=== PATIENT | male | born 1965 | race Caucasian/White ===

== ENCOUNTER 2017-01-13 19:15 | Emergency (ER) | payer OTHER ==
[~2017-01-13] VITALS: Ht 162.6 cm; Wt 96.2 kg
[~2017-01-13 19:15] MED LIST: AMOXICILLIN500 M1 PO; AMOXIL 875 MG875 MG PO; AMOXIL500 MG PO; BACTRIM 400 MG-1 TAB PO; BACTRIM DS 8001 TAB PO; BACTRIM DS TAB1 EACH PO; BACTROBAN OINT.1 BOX NAS; FLEXERIL10 MG PO; GABAPENTIN300 MG PO; HUMALOG 100U100 U/ML SC; HYDROCODONE/ACE1 TA1 PO; KEPPRA1000 MG PO; KEPPRA500 MG PO; LAMICTAL 25MG25 MG PO; LAMICTAL150 MG PO; LAMOTRIGINE25 MG PO; LANTUS INS100 UNITS/ SC; LANTUS SOLOS100 U/ML SC; LANTUS100 U/ML SC; LEVEMIR 10100 UNITS/ SC; LISINOPRIL10 MG PO; NORCO 325 MG-51 TAB PO; NOVOLIN N100 U/ML SC; NOVOLOG100 U/ML SC; PERCOCET 325 MG1 TA2 PO; PERCOCET 5-3251 EACH PO; PRAVASTATIN SOD40 MG PO; PRINIVIL 5MG5 MG PO; QUETIAPINE FUM200 MG PO; SEROQUEL300 MG PO; SERTRALINE HYDR50 MG PO; TORADOL10 MG PO; TRICOR48 MG PO; [UNRECOGNIZED DRUG - OTHER] TOP
--- NOTE | 2017-01-13 20:10 | ED GI/GU/ABDOMINAL COMPLAINT ---
History of Present Illness General Chief Complaint: Abdominal Pain/Flank Pain Stated Complaint: ABD PAIN, VOMITING, NO BOWEL MOVEMENT IN 3 DAYS Vital Signs & Intake/Output Vital Signs & Intake/Output Vital Signs Date Time Temp Pulse Resp B/P Pulse O2 O2 Flow FiO2 Ox Delivery Rate 01/14 1940 98.1 84 18 139/87 96 Room Air Allergies Coded Allergies: NO KNOWN ALLERGIES (05/27/15) Reconcile Medications Atorvastatin Calcium (Lipitor) 40 MG TABLET 1 TAB PO DAILY CHOLESTEROL ( Reported) Gabapentin 300 MG CAPSULE 1 CAP PO TID RLS (Reported) Lamotrigine (Lamictal) 25 MG TABLET 175 MG PO BID SEIZURES & MENTAL HEALTH ( Reported) Lisinopril 20 MG TABLET 1 TAB PO DAILY BP (Reported) Metformin HCl (Glucophage) 1,000 MG TABLET 1 TAB PO BID DM (Reported) Sertraline HCl (Zoloft) 50 MG TABLET 1 TAB PO DAILY MENTAL HEALTH (Reported) Sub-Q Insulin Device, 40 Unit (Vgo 40) 1 EACH EACH 14 UNITS SC TIDAC DM- NOVOLOG (Reported) Triage Note: PT TO TRIAGE WITH C/O LOWER ABDOMENAL PAIN 6/10 xWEEK, NAUSEA, CONSTIPATION FOR 3 DAYS, CHILLS, MILD SOB. PT DENIES CHEST PAIN, DENIES URINARY S/S, PT AFEBRILE, VSS. HX OF GI ULCERS. Past History Travel History Traveled to [place] past 21 day No Medical History Any Pertinent Medical History? 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 No Review of Systems Review of Systems Constitutional: Reports: see HPI. All Other Systems: Reviewed and Negative Departure Departure Condition: Stable Referrals: JONELLE PERKINS MD (PCP/Family) Departure Forms: Customer Survey General Discharge Information General Appearance: well developed/nourished, alert, awake Progress Differential Diagnosis: AMI, appendicitis, biliary colic, bowel obstruction, colon cancer, cholecystitis, diverticulitis, esophageal varices, gastritis, hepatitis, hernia, ischemic bowel, inflamm bowel dis, pancreatitis, peptic ulcer , PUD/GERD, perforated viscous, SBO Departure Departure Condition: Stable Referrals: JONELLE PERKINS MD (PCP/Family) Departure Forms: Customer Survey General Discharge Information
[2017-01-13] MEDS ORDERED: GLUCOPHAGE1000 M1 PO (20:18)
[2017-01-13] MEDS ORDERED: LISINOPRIL20 M1 PO (20:18)
[2017-01-13] MEDS ORDERED: GABAPENTIN300 M2 PO (20:19)
[2017-01-13] MEDS ORDERED: LIPITOR40 M1 PO (20:19)
[2017-01-13] MEDS ORDERED: ZOLOFT50 M1 PO (20:19)
[2017-01-13] MEDS ORDERED: LAMICTAL25 M1 PO (20:20)
--- NOTE | 2017-01-13 20:32 | ED GI/GU/ABDOMINAL COMPLAINT ---
History of Present Illness General Chief Complaint: Abdominal Pain/Flank Pain Stated Complaint: ABD PAIN, VOMITING, NO BOWEL MOVEMENT IN 3 DAYS Source: patient Exam Limitations: no limitations Vital Signs & Intake/Output Vital Signs & Intake/Output Vital Signs Date Time Temp Pulse Resp B/P Pulse O2 O2 Flow FiO2 Ox Delivery Rate 01/14 2216 98.1 76 16 140/88 95 Room Air 01/13 1940 98.1 84 18 139/87 96 Room Air Allergies Coded Allergies: NO KNOWN ALLERGIES (05/27/15) Reconcile Medications Atorvastatin Calcium (Lipitor) 40 MG TABLET 1 TAB PO DAILY CHOLESTEROL ( Reported) Gabapentin 300 MG CAPSULE 1 CAP PO TID RLS (Reported) Lamotrigine (Lamictal) 25 MG TABLET 175 MG PO BID SEIZURES & MENTAL HEALTH ( Reported) Lisinopril 20 MG TABLET 1 TAB PO DAILY BP (Reported) Metformin HCl (Glucophage) 1,000 MG TABLET 1 TAB PO BID DM (Reported) Peg 3350/Na Sulf,Bicarb,Cl/KCl (Golytely Solution) 236-22.74G SOLN.RECON 8 OZ PO AD CONSTIPATION Sertraline HCl (Zoloft) 50 MG TABLET 1 TAB PO DAILY MENTAL HEALTH (Reported) Sub-Q Insulin Device, 40 Unit (Vgo 40) 1 EACH EACH 14 UNITS SC TIDAC DM- NOVOLOG (Reported) Triage Note: PT TO TRIAGE WITH C/O LOWER ABDOMENAL PAIN 6/10 xWEEK, NAUSEA, CONSTIPATION FOR 3 DAYS, CHILLS, MILD SOB. PT DENIES CHEST PAIN, DENIES URINARY S/S, PT AFEBRILE, VSS. HX OF GI ULCERS. Triage Nurses Notes Reviewed? yes Onset: Abrupt Duration: day(s): (4), constant Timing: recent history Quality/Severity: mild, moderate Location: left lower quadrant Radiation: no radiation Activities at Onset: none No Modifying Factors: none HPI: 51-year-old male comes into emergency room for further evaluation of left lower abdominal pain has been going on for the past few days. Denies any fever chills vomiting. Denies any blood in stool. Patient reports she's been straining to go to the bathroom and has pain in his rectal region as well as his left lower abdomen. Patient had colonoscopies done recently which showed polyps. Patient reports that he also had a bacterial infection in his stomach when they did an upper endoscopy and he was on medication for that. Denies any other associated symptoms. (ROSEMARY BURCIAGA) Past History Travel History Traveled to [place] past 21 day No Medical History Any Pertinent Medical History? 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 No (ROSEMARY BURCIAGA) Review of Systems Review of Systems Constitutional: Reports: no symptoms. EENTM: Reports: no symptoms. Respiratory: Reports: no symptoms. Cardiovascular: Reports: no symptoms. GI: Reports: see HPI. Genitourinary: Reports: no symptoms. Musculoskeletal: Reports: no symptoms. Skin: Reports: no symptoms. Neurological/Psychological: Reports: no symptoms. Hematologic/Endocrine: Reports: no symptoms. Immunologic/Allergic: Reports: no symptoms. All Other Systems: Reviewed and Negative (ROSEMARY BURCIAGA) Physical Exam Physical Exam General Appearance: well developed/nourished, no apparent distress, alert, awake Head: atraumatic, normal appearance Eyes: Bilateral: normal appearance, EOMI. Ears, Nose, Throat, Mouth: hearing grossly normal, moist mucous membrane Neck: normal inspection, full range of motion Respiratory: normal breath sounds, no respiratory distress Cardiovascular: regular rate/rhythm Gastrointestinal: soft, tenderness (LLQ), NO GUARDING, NO REBOUND TENDERNESS Rectal: heme positive stool, NO GROSS BLOOD Back: normal inspection Extremities: normal range of motion Neurologic/Psych: awake, alert, oriented x 3, normal gait, normal mood/affect Skin: intact, normal color Core Measures ACS in differential dx? No Severe Sepsis Present: No Septic Shock Present: No (ROSEMARY BURCIAGA) Progress Differential Diagnosis: appendicitis, cholecystitis, diverticulitis, hernia, hemorrhoids, ischemic bowel, inflamm bowel dis, perforated viscous, SBO, ureterolithiasis, urinary retention, UTI/pyelo, CONSTIPATION Plan of Care: Orders Procedure Date/time Status URINALYSIS 01/13 2031 Complete LIPASE 01/13 2031 Complete LACTIC ACID 01/13 2031 Complete COMPREHENSIVE METABOLIC PANEL 01/13 2031 Complete CBC WITHOUT DIFFERENTIAL 01/13 2031 Complete AMYLASE 01/13 2031 Complete Laboratory Tests 01/13/172052: Urine Color YEL, Urine Clarity CLEAR, Urine pH 6.0, Ur Specific [place] >= 1.030 , Urine Protein 100 H, Urine Ketones NEG, Urine Nitrite NEG, Urine Bilirubin NEG, Urine Urobilinogen 0.2, Ur Leukocyte Esterase NEG, Ur Microscopic SEDIMENT EXAMINED, Urine RBC 1-3, Ur Epithelial Cells RARE, Urine Mucus MOD H, Urine Hemoglobin TRACE-INTACT H, Urine Glucose >=1000 H 01/13/172044: Anion Gap 8, Estimated GFR > 60, BUN/Creatinine Ratio 22.9, Glucose 165 H, Lactic Acid 1.1, Calcium 9.6, Total Bilirubin 0.6, AST 20, ALT 39, Alkaline Phosphatase 81, Total Protein 6.8, Albumin 3.7, Globulin 3.1, Albumin/Globulin Ratio 1.2, Amylase 50, Lipase 141, CBC w Diff NO MAN DIFF REQ, RBC 5.02, MCV 88.9, MCH 29.8, RDW 13.3, MPV 8.1, Gran % 58.9, Lymphocytes % 31.6, Monocytes % 6.3, Eosinophils % 2.7, Basophils % 0.5, Absolute Granulocytes 3.9, Absolute Lymphocytes 2.1, Absolute Monocytes 0.4, Absolute Eosinophils 0.2, Absolute Basophils 0, PUBS MCHC 33.5 Diagnostic Imaging: Viewed by Me: CT Scan. Discussed w/RAD: CT Scan. Radiology Impression: SERVICE DATE: 01/13/17 EXAM TYPE: CAT - CT ABD & PELVIS W/O IV CONTRAS EXAMINATION: CT ABDOMEN AND PELVIS WITHOUT CONTRAST CLINICAL INFORMATION: Lower abdominal pain on the left side. Decreased bowel movements. COMPARISON: CT abdomen and pelvis 12/02/2015 TECHNIQUE: Multidetector volumetric imaging was performed from the superior aspect of the liver through the pubic symphysis. Sagittal and coronal reformatted images were obtained on the technologist's workstation. DLP: 538.5 mGy-cm FINDINGS: LUNG BASES: The visualized lung bases are unremarkable. LIVER, GALLBLADDER, AND BILIARY TREE: The liver is normal in size, shape, and attenuation. No focal hepatic lesion or biliary ductal dilatation is present. The gallbladder is unremarkable with no evidence of radiopaque gallstones, gallbladder wall thickening, or obvious pericholecystic inflammatory changes. PANCREAS: Unremarkable. SPLEEN: Unremarkable. ADRENAL GLANDS: Unremarkable. KIDNEYS AND URETERS: The kidneys are normal in size, shape, and attenuation. No hydronephrosis, hydroureter, or calculi seen. Minimal but symmetric perinephric stranding. BLADDER: Unremarkable. GASTROINTESTINAL TRACT: A normal appendix is visualized within the right lower quadrant. There are no dilated loops of small or large bowel. Dense stool is noted throughout the colon. ABDOMINAL WALL: There are bilateral fat- containing inguinal hernias, left greater than right. LYMPH NODES: Normal. VASCULAR: Unremarkable on this limited noncontrast exam. PELVIC VISCERA: Prostate and seminal vesicles appear unremarkable. OSSEOUS STRUCTURES: Unremarkable. IMPRESSION: 1. No acute intra-abdominal or pelvic findings. 2. Moderate stool volume. DICTATED BY: DOMITILA BROWN MD DATE/TIME DICTATED:01/13/172211 AUTOMATIC TIRE TESTER:RODOLFO DATE/TIME TRANSCRIBED:01/13/172211 Initial ED EKG: none Comments: 01/13/2017 11:11:28 PM Patient is nontoxic appearing. Patient is in no apparent distress. Patient resting comfortably in room. Patient has symptoms consistent with constipation. No acute findings on CAT scan or blood work. Follow-up with gastric drowsiness. Return if any concerns worsening symptoms. Patient understands and agrees with plan of care. (CHARU CANO,ROSEMARY) Departure Departure Disposition: HOME OR SELF CARE Condition: Stable Clinical Impression Primary Impression: Constipation Secondary Impressions: Abdominal pain Referrals: JONELLE PERKINS MD (PCP/Family) Additional Instructions: Take GoLYTELY as prescribed. Follow-up with your GI doctor. Return to emergency room if any concerns worsening symptoms. Follow-up with your primary care physician this week. Return to the emergency room at any time sooner if you have worsening of your symptoms or any other concerns. Please note that there might be incidental findings in your evaluation that are unrelated to the current emergency department visit. Please notify your primary care doctor about this emergency department visit in order to obtain and review all of the testing performed so that these incidental findings can be monitored as needed. If you were prescribed a narcotic use caution as this medication is highly addictive and will make you drowsy use for breakthrough pain only. No driving, drinking alcohol or operating machinary when taking. If you had an x-ray performed, please understand that some fractures may not be seen on the initial set of x-rays. If your symptoms persist you might need a repeat set of x-rays to check for such a fracture. If you had a laceration evaluated, please understand that foreign bodies such as glass or wood may not be visible to the naked eye or on plain x-rays. If the wound becomes red, swollen, increasingly more painful or if there is any drainage from the wound, please have it reevaluated by a physician for the possibility of a retained foreign body. Departure Forms: Customer Survey General Discharge Information Prescriptions: Current Visit Scripts Peg 3350/Na Sulf,Bicarb,Cl/KCl (Golytely Solution) 8 OZ PO AD #1 BOT (ROSEMARY BURCIAGA) PA/TUBE AND MANIFOLD BUILDER Co-Sign Statement Statement: ED Attending supervision documentation- [] I saw and evaluated the patient. I have also reviewed all the pertinent lab results and diagnostic results. I agree with the findings and the plan of care as documented in the PA's/TUBE AND MANIFOLD BUILDER's documentation. [X] I have reviewed the ED Record and agree with the PA's/TUBE AND MANIFOLD BUILDER's documentation. [] Additions or exceptions (if any) to the PAs/TUBE AND MANIFOLD BUILDER's note and plan are summarized below: [] (AMIRAH MCCARTHY DO
[2017-01-13 20:50] LABS: ABSOLUTE BASOPHIL COUNT 0 /CUMM (0.0-0.2); ABSOLUTE EOSINOPHIL COUNT 0.2 /CUMM (0.0-0.7); ABSOLUTE GRANULOCYTE CT 3.9 /CUMM (1.4-6.5); ABSOLUTE LYMPH COUNT 2.1 /CUMM (1.2-3.4); ABSOLUTE MONOCYTE COUNT 0.4 /CUMM (0.10-0.60); BASOPHIL % 0.5 % (0.0-2.0); EOSINOPHIL % 2.7 % (0-5); GRANULOCYTE % 58.9 % (42.2-75.2); HEMATOCRIT 44.7 % (42-52); MEAN CORPUSCULAR HGB 29.8 PG (27.0-31.0); MEAN CORPUSCULAR HGB CONC 33.5 G/DL (33.0-37.0); MEAN CORPUSCULAR VOLUME 88.9 FL (80.0-94.0); MEAN PLATELET VOLUME 8.1 FL (7.4-10.4); PLATELET COUNT 198 /CUMM (130-400); RBC DISTRIBUTION WIDTH 13.3 % (11.5-14.5); RED BLOOD CELL CT 5.02 /CUMM (4.70-6.10); WHITE BLOOD CELL COUNT 6.6 /CUMM (4.8-10.8)
[2017-01-13 22:16] VITALS: BP 140/88
--- NOTE | 2017-01-13 22:19 | CT SCAN REPORT ---
EXAMINATION: CT ABDOMEN AND PELVIS WITHOUT CONTRAST CLINICAL INFORMATION: Lower abdominal pain on the left side. Decreased bowel movements. COMPARISON: CT abdomen and pelvis 12/02/2015 TECHNIQUE: Multidetector volumetric imaging was performed from the superior aspect of the liver through the pubic symphysis. Sagittal and coronal reformatted images were obtained on the technologist's workstation. DLP: 538.5 mGy-cm FINDINGS: LUNG BASES: The visualized lung bases are unremarkable. LIVER, GALLBLADDER, AND BILIARY TREE: The liver is normal in size, shape, and attenuation. No focal hepatic lesion or biliary ductal dilatation is present. The gallbladder is unremarkable with no evidence of radiopaque gallstones, gallbladder wall thickening, or obvious pericholecystic inflammatory changes. PANCREAS: Unremarkable. SPLEEN: Unremarkable. ADRENAL GLANDS: Unremarkable. KIDNEYS AND URETERS: The kidneys are normal in size, shape, and attenuation. No hydronephrosis, hydroureter, or calculi seen. Minimal but symmetric perinephric stranding. BLADDER: Unremarkable. GASTROINTESTINAL TRACT: A normal appendix is visualized within the right lower quadrant. There are no dilated loops of small or large bowel. Dense stool is noted throughout the colon. ABDOMINAL WALL: There are bilateral fat-containing inguinal hernias, left greater than right. LYMPH NODES: Normal. VASCULAR: Unremarkable on this limited noncontrast exam. PELVIC VISCERA: Prostate and seminal vesicles appear unremarkable. OSSEOUS STRUCTURES: Unremarkable. IMPRESSION: 1. No acute intra-abdominal or pelvic findings. 2. Moderate stool volume.
[2017-01-13] MEDS ORDERED: GOLYTELY SOLU4000 ML PO (22:42)
== END 2017-01-13 22:51 ==
LOC: ERH 19:15
PROVIDERS: Physician Assistant Medical
DX: K59.00 Constipation, unspecified (principal)
CPT/HCPCS: 74176; 81001

== ENCOUNTER 2017-01-19 13:52 | Emergency (ER) | payer OTHER ==
[~2017-01-19] VITALS: Ht 162.6 cm; Wt 96.2 kg
[~2017-01-19 13:52] MED LIST changes: +GABAPENTIN300 M2 PO; +GLUCOPHAGE1000 M1 PO; +GOLYTELY SOLU4000 ML PO; +LAMICTAL25 M1 PO; +LIPITOR40 M1 PO; +LISINOPRIL20 M1 PO; +ZOLOFT50 M1 PO
[2017-01-19] MEDS ORDERED: KETOROLAC TROME10 M1 PO (14:15)
[2017-01-19] MEDS ORDERED: IBUPROFEN800 M1 PO (14:15)
--- NOTE | 2017-01-19 14:38 | ED GI/GU/ABDOMINAL COMPLAINT ---
History of Present Illness General Chief Complaint: General Adult Stated Complaint: RECTAL PAIN Source: patient, old records Exam Limitations: no limitations Vital Signs & Intake/Output Vital Signs & Intake/Output Vital Signs Date Time Temp Pulse Resp B/P Pulse O2 O2 Flow FiO2 Ox Delivery Rate 01/19 1653 97.9 79 18 144/88 97 Room Air 01/19 1406 97.8 81 20 163/95 97 Room Air Allergies Coded Allergies: NO KNOWN ALLERGIES (05/27/15) Reconcile Medications Anusol Hc (Anusol-Hc) 25 MG SUPP.RECT 1 SUP RC BID hemorrhoid Atorvastatin Calcium (Lipitor) 40 MG TABLET 1 TAB PO DAILY CHOLESTEROL ( Reported) Gabapentin 300 MG CAPSULE 1 CAP PO TID RLS (Reported) Ibuprofen 800 MG TABLET 1 TAB PO TID PRN PAIN (Reported) Ketorolac Tromethamine 10 MG TABLET 1 TAB PO Q4-6 PRN PRN PAIN (Reported) Lamotrigine (Lamictal) 25 MG TABLET 175 MG PO BID SEIZURES & MENTAL HEALTH ( Reported) Lidocaine HCl 2 % JEL..ML. 5 ML TOP TID PRN PAIN Lisinopril 20 MG TABLET 1 TAB PO DAILY BP (Reported) Metformin HCl (Glucophage) 1,000 MG TABLET 1 TAB PO BID DM (Reported) Sertraline HCl (Zoloft) 50 MG TABLET 1 TAB PO DAILY MENTAL HEALTH (Reported) Sub-Q Insulin Device, 40 Unit (Vgo 40) 1 EACH EACH 14 UNITS SC TIDAC DM- NOVOLOG (Reported) Triage Note: PT C/O CONSTIPATION X 5 DAYS AND RECTAL PAIN Triage Nurses Notes Reviewed? yes Onset: Abrupt Duration: week(s): (2), constant Timing: recent history Quality/Severity: aching, bloating pressure Location: rectal Radiation: no radiation Activities at Onset: none Prior Abdominal Problems: none No Modifying Factors: none Associated Symptoms: denies HPI: 51-year-old male presents emergency room for evaluation complaining of persistent to make history of constipation and severe rectal pain. He denies history of similar episodes in the past. He was seen here 6 days ago for similar symptoms. He states that he cannot get the GoLYTELY medication that was prescribed him because was sent to the wrong pharmacy. He states that he is only been having small bowel movements the last one being a few days ago. He describes abdominal bloating that is constant and nonradiating. The patient states that he felt a lump on his rectum which she has never had before. Patient had a colonoscopy and endoscopy performed earlier this year that just showed polyps. No fever no chills no nausea no vomiting or denies any black or bloody stools. Has not taken anything for his symptoms other than ibuprofen 800 mg without improvement (STEPHANIE WESLEY) Past History Travel History Traveled to [place] past 21 day No Medical History Any Pertinent Medical History? see below for history Neurological: seizure, RESTLESS LEG SYNDROME EENT: cataracts Cardiovascular: hyperlipidemia Respiratory: SLEEP APNEA CPAP Gastrointestinal: peptic ulcer disease Hepatic: NONE Renal: NONE Musculoskeletal: ARTHRITIS OF LEFT SHOULDER MULTIPLE ABSCESSES Psychiatric: anxiety, bipolar disease, "SUICIDAL TENDENCIES" Endocrine: DM Blood Disorders: NONE Cancer(s): NONE COSMETIC DENTIST/Reproductive: NONE History of MRSA: Yes History of VRE: No History of CDIFF: No Tetanus Vaccine: 11/27/14 Surgical History Surgical History: N Psychosocial History Who do you live with Sister Services at Home None What is your primary language Lao Tobacco Use: Never used ETOH Use: denies use Illicit Drug Use: denies illicit drug use Family History Family History, If Any: FATHER FH: diabetes mellitus FH: lymphoma FH: seizures MOTHER FH: CAD (coronary artery disease) FH: diabetes mellitus FH: hyperlipidemia Hypertension Hx Contributory? No (STEPHANIE WESLEY) Review of Systems Review of Systems Constitutional: Reports: see HPI. All Other Systems: Reviewed and Negative Comments Review of systems: See HPI, All other systems negative. Constitutional, no chills no fever, no malaise HEENT: no sore throat no congestion, Cardiovascular: No chest pain , no palpitation Skin, no rashes, no change in skin Respiratory: No dyspnea no cough no sputum GI: No nausea no vomiting, no diarrhea,constipation : No dysuria Muscle skeletal: No joint pain, , no back pain, no neck pain, Neurologic: No numbness no headache Psych: No stress Heme/endocrine: No bruising no bleeding Immunology: No lymphadenopathy (STEPHANIE WESLEY) Physical Exam Physical Exam General Appearance: well developed/nourished, no apparent distress, alert Gastrointestinal: normal bowel sounds, soft, non-tender Comments: Well-developed well-nourished person in no acute distress HEENT: Normal EENT exam; PERRL, EOMI, HEAD is atraumatic. moist mucous membranes. Neck: Supple, normal range of motion Back: Nontender, no CVA tenderness. Full range of motion Cardiovascular: Regular rate and rhythms no murmurs rubs Respiratory:No respiratory distress. Patient speaking in full complete sentences. Breath sounds clear to auscultation bilaterally: NO W/R/R Abdomen: Soft, nontender nondistended, no appreciable organomegaly. Normal bowel sounds. No rebound/guarding, No appreciable enlargement of the abdominal aorta, No ascites. Rectal: Nontender. Heme negative stool. (+) external hemorrhoid, no fissure, no abscess, no fistula Extremity: No edema, full range of motion of extremities Neuro: Alert oriented x3, motor sensory normal, There were no obvious focal neurologic abnormalities. Skin: No appreciable rash on exposed skin, skin is warm and dry. Psych: Mood and affect is normal, memory and judgment is normal. Core Measures ACS in differential dx? No Severe Sepsis Present: No Septic Shock Present: No (STEPHANIE WESLEY) Progress Differential Diagnosis: hemorrhoids, prostatitis, perforated viscous, anal fissure, fistual, obstrucion, malignancy, impaction Plan of Care: Orders Procedure Date/time Status CBC WITHOUT DIFFERENTIAL 01/19 1449 Complete BASIC METABOLIC PANEL 01/19 1449 Complete Laboratory Tests 01/19/17 1518: Anion Gap 6, Estimated GFR > 60, BUN/Creatinine Ratio 24.3, Glucose 314 H, Calcium 9.7, CBC w Diff NO MAN DIFF REQ, RBC 4.81, MCV 88.8, MCH 30.3, RDW 12.6, MPV 8.2, Gran % 67.0, Lymphocytes % 22.1, Monocytes % 7.3, Eosinophils % 3.3, Basophils % 0.3, Absolute Granulocytes 4.1, Absolute Lymphocytes 1.4, Absolute Monocytes 0.4, Absolute Eosinophils 0.2, Absolute Basophils 0, PUBS MCHC 34.1 Old records reviewed including the patient's previous CAT scan from January 13, labs ordered x-ray ordered. I discussed the patient clinical exam, and his large hemorrhoid that he has externally which could be causing his severe rectal pain 01/19/2017 4:55:31 PM I discussed with the patient at length all of their results. I had an extensive conversation regarding need for close follow up with their primary care physician this week as well as return precautions. Patient is scheduled to see his GI Dr. Blanco on the information was provided for Dr. ortiz as well. pt has golytltely at home. I answered all of their questions, they feel comfortable with the plan and follow-up care. I discussed the medications that they will receive with the patient. I gave them signs and symptoms that could indicate an adverse reaction. I have advised them to limit their activities until they can see how they respond to the medication. (STEPHANIE WESLEY) Diagnostic Imaging: Viewed by Me: Radiology Read. Discussed w/RAD: Radiology Read. Radiology Impression: PATIENT: ELINA BARKER PRESENT AGE: 51 PATIENT ACCOUNT NO: [id number] : 64 LOCATION: [facility] ORDERING PHYSICIAN: STEPHANIE CANO SERVICE DATE: 01/19/17 EXAM TYPE: RAD - [id number] VIEWS EXAMINATION: XR ABDOMEN CLINICAL INDICATION: Obstruction. Constipation. COMPARISON: CT scan of the abdomen and pelvis December 2016. TECHNIQUE: Single view of the abdomen supine. FINDINGS: There is a nonobstructive gas pattern. Moderate amount of fecal material noted within the colon. Spondylosis of the lumbosacral spine unchanged. The surrounding bone and soft tissues are unremarkable. IMPRESSION: No evidence of bowel obstruction. Moderate amount of fecal material noted throughout the colon. DICTATED BY: CORBY WEISS MD DATE/TIME DICTATED:01/19/171522 SURVEY RESEARCH ASSOCIATE: RODOLFO DATE/TIME TRANSCRIBED:01/19/171522 CONFIDENTIAL, DO NOT COPY WITHOUT APPROPRIATE AUTHORIZATION. <Electronically signed in Other Vendor System> SIGNED BY: CORBY WEISS MD 01/19/17 1541 Initial ED EKG: none (STEPHANIE WESLEY) Departure Departure Time of Disposition: 1634 Disposition: HOME OR SELF CARE Condition: Stable Clinical Impression Primary Impression: Hemorrhoid Secondary Impressions: Constipation Referrals: STONE DE LOS SANTOS DO,ISAIAH PERKINS MD,JONELLE (PCP/Family) SOL BLANCO MD Additional Instructions: Follow-up with your leather tooler Dr. Blanco as scheduled next week. Follow-up with colorectal surgeon Dr. ortiz on sunday. Use your golytely that you have at home. anusol suppository and lidocaine jelly as discussed. These prescriptions were sent to your pharmacy. Return anytime sooner with any concerns sitz baths with epson salt. Departure Forms: Customer Survey General Discharge Information Prescriptions: Current Visit Scripts Anusol Hc (Anusol-Hc) 1 SUP RC BID #28 SUP Lidocaine HCl 5 ML TOP TID PRN PAIN #50 ML (STEPHANIE WESLEY) PA/SKATE SHOP ATTENDANT Co-Sign Statement Statement: ED Attending supervision documentation- [x] I saw and evaluated the patient. I have also reviewed all the pertinent lab results and diagnostic results. I agree with the findings and the plan of care as documented in the PA's/SKATE SHOP ATTENDANT's documentation. [] I have reviewed the ED Record and agree with the PA's/SKATE SHOP ATTENDANT's documentation. [] Additions or exceptions (if any) to the PAs/SKATE [employer] ATTENDANT's note and plan are summarized below: [] (AMIRAH MCCARTHY DO
[2017-01-19 15:28] LABS: ABSOLUTE BASOPHIL COUNT 0 /CUMM (0.0-0.2); ABSOLUTE EOSINOPHIL COUNT 0.2 /CUMM (0.0-0.7); ABSOLUTE GRANULOCYTE CT 4.1 /CUMM (1.4-6.5); ABSOLUTE LYMPH COUNT 1.4 /CUMM (1.2-3.4); ABSOLUTE MONOCYTE COUNT 0.4 /CUMM (0.10-0.60); BASOPHIL % 0.3 % (0.0-2.0); EOSINOPHIL % 3.3 % (0-5); HEMATOCRIT 42.7 % (42-52); MEAN CORPUSCULAR HGB 30.3 PG (27.0-31.0); MEAN CORPUSCULAR HGB CONC 34.1 G/DL (33.0-37.0); MEAN CORPUSCULAR VOLUME 88.8 FL (80.0-94.0); MEAN PLATELET VOLUME 8.2 FL (7.4-10.4); PLATELET COUNT 226 /CUMM (130-400); RBC DISTRIBUTION WIDTH 12.6 % (11.5-14.5); RED BLOOD CELL CT 4.81 /CUMM (4.70-6.10); WHITE BLOOD CELL COUNT 6.2 /CUMM (4.8-10.8)
--- NOTE | 2017-01-19 15:41 | RADIOLOGY REPORT ---
EXAMINATION: XR ABDOMEN CLINICAL INDICATION: Obstruction. Constipation. COMPARISON: CT scan of the abdomen and pelvis December 2016. TECHNIQUE: Single view of the abdomen supine. FINDINGS: There is a nonobstructive gas pattern. Moderate amount of fecal material noted within the colon. Spondylosis of the lumbosacral spine unchanged. The surrounding bone and soft tissues are unremarkable. IMPRESSION: No evidence of bowel obstruction. Moderate amount of fecal material noted throughout the colon.
[2017-01-19] MEDS ORDERED: LIDOCAINE HCL5 ML TOP (16:45)
[2017-01-19] MEDS ORDERED: ANUSOL-HC25 M1 RC (16:45)
[2017-01-19 16:53] VITALS: BP 144/88
== END 2017-01-19 16:53 ==
LOC: ERH 13:52
PROVIDERS: Physician Assistant Medical
DX: K64.9 Unspecified hemorrhoids (principal); K59.00 Constipation, unspecified
CPT/HCPCS: 74020

== ENCOUNTER 2017-02-05 16:02 | Inpatient (IN) | payer OTHER ==
[~2017-02-05] VITALS: Ht 162.6 cm; Wt 109.9 kg
[~2017-02-05 16:02] MED LIST changes: +ANUSOL-HC25 M1 RC; +IBUPROFEN800 M1 PO; +KETOROLAC TROME10 M1 PO; +LIDOCAINE HCL5 ML TOP
[2017-02-05] MEDS ORDERED: METOPROLOL TART25 M1 PO (16:09)
[2017-02-05] MEDS ORDERED: NOVOLOG100 UNIT/2 SC (16:10)
[2017-02-05] MEDS ORDERED: SEROQUEL300 M1 PO (16:10)
[2017-02-05] MEDS ORDERED: RISPERDAL0.25 M1 PO (16:10)
--- NOTE | 2017-02-05 16:17 | ED AMS/SEIZURE/WEAK/DIZZY ---
History of Present Illness General Chief Complaint: General Adult Stated Complaint: BIBA HYPOTENSION Source: patient, old records, EMS Exam Limitations: no limitations Allergies Coded Allergies: aspirin (PER MED LIST 02/05/17) diphtheria,pertussis (acellular),te (From ADACEL(TDAP ADOLESN/ADULT)(PF)) (PER MED LIST 02/05/17) Reconcile Medications Anusol Hc (Anusol-Hc) 25 MG SUPP.RECT 1 SUP RC BID hemorrhoid Atorvastatin Calcium (Lipitor) 40 MG TABLET 1 TAB PO DAILY CHOLESTEROL ( Reported) Gabapentin 300 MG CAPSULE 1 CAP PO TID RLS (Reported) Ibuprofen 800 MG TABLET 1 TAB PO TID PRN PAIN (Reported) Insulin Aspart (Novolog) 100 UNIT/ML VIAL 76 UNITS SC AD VGO INSULIN PUMP - DM (Reported) Ketorolac Tromethamine 10 MG TABLET 1 TAB PO Q4-6 PRN PRN PAIN (Reported) Lamotrigine (Lamictal) 25 MG TABLET 175 MG PO BID SEIZURES & MENTAL HEALTH ( Reported) Lidocaine HCl 2 % JEL..ML. 5 ML TOP TID PRN PAIN Lisinopril 20 MG TABLET 1 TAB PO DAILY BP (Reported) Metformin HCl (Glucophage) 1,000 MG TABLET 1 TAB PO BID DM (Reported) Metoprolol Tartrate 25 MG TABLET 1 TAB PO BID HEART/BP (Reported) Quetiapine Fumarate (Seroquel) 300 MG TABLET 1 TAB PO DAILY UNKNOWN (Reported ) Risperidone (Risperdal) 0.25 MG TABLET 1 TAB PO AD UNKNOWN (Reported) Sertraline HCl (Zoloft) (Unknown Strength) TABLET (Unknown Dose) PO DAILY MENTAL HEALTH (Reported) Sub-Q Insulin Device, 40 Unit (Vgo 40) (Unknown Strength) EACH (Unknown Dose) SC TIDAC DM- NOVOLOG (Reported) Triage Nurses Notes Reviewed? 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 Patient states that he woke this morning and normal health. He denies history of vertigo in the past no recent fall or head trauma no headache. He denies any chest pain palpitation shortness of breath abdominal pain nausea or vomiting. On arrival patient is known to be hypotensive he was given IV fluids in route. There is been no recent changes in his medication. He is on lisinopril for his blood pressure which she took this morning Blood sugar was 112 and route or the patient reports his dizziness is worse with opening his eyes (STEPHANIE WESLEY) Vital Signs & Intake/Output Vital Signs & Intake/Output Vital Signs Date Time Temp Pulse Resp B/P Pulse O2 O2 Flow FiO2 Ox Delivery Rate 02/05 2054 97.3 63 16 99/55 96 Room Air 02/05 205 63 16 99/58 96 Room Air 02/05 1943 62 16 105/63 97 Room Air 02/05 1856 63 89/54 02/05 1841 62 103/56 02/05 1834 60 98/58 97 Room Air 02/05 1805 70 84/55 02/05 1744 60 16 84/58 97 Room Air 02/05 1708 60 16 101/58 96 Room Air 02/05 1658 60 95/58 /10 1641 62 16 90/52 95 Room Air 02/05 1628 Room Air 02/05 1610 97.2 65 18 84/58 97 Room Air 02/05 1605 97.2 66 18 84/50 95 Room Air Past History Medical History Any Pertinent Medical History? see below for history Neurological: seizure, RESTLESS LEG SYNDROME EENT: cataracts Cardiovascular: hyperlipidemia Respiratory: SLEEP APNEA CPAP Gastrointestinal: peptic ulcer disease Hepatic: NONE Renal: NONE Musculoskeletal: ARTHRITIS OF LEFT SHOULDER MULTIPLE ABSCESSES Psychiatric: anxiety, bipolar disease, "SUICIDAL TENDENCIES" Endocrine: DM Blood Disorders: NONE Cancer(s): NONE ENERGY ENGINEER/Reproductive: NONE History of MRSA: Yes History of VRE: No History of CDIFF: No Tetanus Vaccine: 11/27/14 Surgical History Surgical History: N Psychosocial History Who do you live with Sister Services at Home None What is your primary language Uzbek Family History Family History, If Any: FATHER FH: diabetes mellitus FH: lymphoma FH: seizures MOTHER FH: CAD (coronary artery disease) FH: diabetes mellitus FH: hyperlipidemia Hypertension Hx Contributory? No (STEPHANIE WESLEY) Review of Systems Review of Systems Constitutional: Reports: see HPI. All Other Systems: Reviewed and Negative Comments Review of systems: See HPI, All other systems negative. Constitutional, no chills no fever, no malaise HEENT: no sore throat no congestion, no ear pain Cardiovascular: No chest pain , no palpitation , no orthopnea no ankle swelling Skin, no jaundice no rashes, no change in skin Respiratory: No dyspnea no cough no sputum GI: No nausea no vomiting, no diarrhea, : No dysuria No hematuria, no frequency, no discharge Muscle skeletal: No joint pain, no joint swelling, no back pain, no neck pain, Neurologic: No numbness no confusion, no headache Psych: No stress Heme/endocrine: No bruising no bleeding Immunology: No lymphadenopathy, (STEPHANIE WESLEY) Physical Exam Physical Exam General Appearance: well developed/nourished, alert, awake Comments: Well-developed well-nourished person in no acute distress HEENT: Normal EENT exam; PERRL, EOMI, no nystagmus. HEAD is atraumatic. moist mucous membranes. Neck: Supple, no lymphadenopathy, normal range of motion Back: Nontender, no CVA tenderness. Full range of motion Cardiovascular: Regular rate and rhythms no murmurs rubs or gallops Respiratory: Chest nontender.There were no bony deformities, no asymmetry. No respiratory distress. Patient speaking in full complete sentences. Breath sounds clear to auscultation bilaterally: NO W/R/R Abdomen: Soft, nontender nondistended, no appreciable organomegaly. Normal bowel sounds. No rebound/guarding, Extremity: No edema, full range of motion of extremities Neuro: Alert oriented x3, motor sensory normal There were no obvious focal neurologic abnormalities. Skin: No appreciable rash on exposed skin, skin is warm and dry. Psych: Mood and affect is normal, memory and judgment is normal. Core Measures ACS in differential dx? Yes CVA/TIA Diagnosis: No Severe Sepsis Present: No Septic Shock Present: No (STEPHANIE WESLEY) Progress Differential Diagnosis: arrythmia, anemia, benign positional vertigo, CVA/stroke , dehydration, drug intoxication, electrolyte imbalance, intracranial Hem., intracranial mass/tumor, labrynthitis, meningitis, migraine RAYMOND, presyncope, sepsis, seizure disorder, subarachnoid Hem., UTI/pyelo, vertebrobasilar insuff Diagnostic Imaging: Viewed by Me: Radiology Read, CT Scan. Discussed w/RAD: Radiology Read, CT Scan. Radiology Impression: PATIENT: ELINA BARKER PRESENT AGE: 51 PATIENT ACCOUNT NO: [id number] : 64 LOCATION: [facility] ORDERING PHYSICIAN: QUANG ALVARENGA MD SERVICE DATE: 02/05/17 EXAM TYPE: RAD - XRY-PORTABLE CHEST XRAY EXAMINATION: XR PORTABLE CHEST CLINICAL INFORMATION: Right IJ placement. COMPARISON: Chest portable 02/05/2017. TECHNIQUE: Portable AP view of the chest was obtained. FINDINGS: There is cardiomegaly probably from semiupright position. There is mild prominence of pulmonary vascularity but no evon congestion seen. There is a new right jugular central line with its tip in SVC. No pneumothorax noted. The lungs are hypoexpanded but clear. There is no pleural effusion. No gross bony abnormality. IMPRESSION: New right jugular central line tip is in SVC. Mild cardiomegaly without congestion. No change from 02/05/2017. DICTATED BY: KELVIN STILL MD DATE /TIME DICTATED:02/05/172034 COMMISSARY STEWARD:RODOLFO DATE/TIME TRANSCRIBED: 02/05/172034 CONFIDENTIAL, DO NOT COPY WITHOUT APPROPRIATE AUTHORIZATION. < Electronically signed in Other Vendor System> SIGNED BY: KELVIN STILL MD 2040, PATIENT: ELINA BARKER PRESENT AGE : 51 PATIENT ACCOUNT NO: [id number] : 64 LOCATION: [facility] ORDERING PHYSICIAN: STEPHANIE CANO SERVICE DATE: 02/05/17 EXAM TYPE: CAT - CT HEAD WO IV CONTRAST EXAMINATION: CT HEAD WITHOUT CONTRAST CLINICAL INFORMATION: Dizziness and hypotension. COMPARISON: None TECHNIQUE: Contiguous axial imaging was performed from the skull base to vertex without intravenous administration of contrast. DLP: 600.71 mGy-cm FINDINGS: There is no evidence of acute intracranial hemorrhage or territorial infarction. No abnormal mass effect or midline shift is seen. [place] to white matter differentiation is well preserved. No extra-axial fluid collections are identified. The ventricles are normal in size. There is no abnormal attenuation within the brain parenchyma. The osseous structures and soft tissues are normal. The mastoid air cells are well aerated. There is mild mucosal thickening in the ethmoid sinus air cells. IMPRESSION: No acute intracranial pathology. DICTATED BY: ARSEN FRIEDMAN MD DATE/TIME DICTATED:02/05/171806 COMMISSARY STEWARD:RODOLFO DATE/TIME TRANSCRIBED:1806 CONFIDENTIAL, DO NOT COPY WITHOUT APPROPRIATE AUTHORIZATION. < Electronically signed in Other Vendor System> SIGNED BY: ARSEN FRIEDMAN MD 02/05/171811, PATIENT: ELINA BARKER PRESENT AGE: 51 PATIENT ACCOUNT NO: [id number] : 64 LOCATION: [facility] ORDERING PHYSICIAN: STEPHANIE CANO SERVICE DATE: 02/05/17 EXAM TYPE: RAD - XRY-PORTABLE CHEST XRAY EXAMINATION: XR PORTABLE CHEST CLINICAL INFORMATION: Hypotension and dizziness. COMPARISON: X-ray from 12/29/2014. TECHNIQUE: Portable AP view of the chest was obtained. FINDINGS: No airspace opacities or pleural effusions are seen. The cardiomediastinal silhouette is normal. No acute osseous abnormality seen. IMPRESSION: Clear lungs. No acute process. DICTATED BY: ARSEN FRIEDMAN MD DATE/TIME DICTATED:02/05/171738 COMMISSARY STEWARD:RODOLFO DATE/TIME TRANSCRIBED:02/05/171738 CONFIDENTIAL, DO NOT COPY WITHOUT APPROPRIATE AUTHORIZATION. <Electronically signed in Other Vendor System> SIGNED BY: ARSEN FRIEDMAN MD 02/05/17 174 Initial ED EKG: NORMAL SINUS AT 60, NONSPECIFIC st SEGMENT CHANGES MINIMAL st SEGMENT ELEVATION NOTED TO Avl Prior EKG: changed (10/2015) Rhythm Strip: normal sinus rhythm (ANGELITA CANO,STEPHANIE) Plan of Care: Orders Procedure Date/time Status Brody, Insertion/Removal/Asses 02/05 2019 Active Admit to inpatient 02/05 195 Active Patient Data 02/05 1920 Active LACTIC ACID 02/05 1916 Active Add-on Test (ER Only) 02/05 1846 Active URINALYSIS 02/05 184 Complete BLOOD CULTURE 02/05 184 Active Add-on Test (ER Only) 02/05 1736 Active URINE DRUG SCREEN FOR ER ONLY 02/05 1710 Complete Intake & Output 02/05 1628 Active ETHANOL 02/05 1625 Complete CORTISOL PM 02/05 1625 Complete TROPONIN LEVEL 02/05 1616 Complete PROTHROMBIN TIME 02/05 1616 Complete LACTIC ACID 02/06 1616 Complete COMPREHENSIVE METABOLIC PANEL 02/06 1616 Complete CBC WITHOUT DIFFERENTIAL 02/06 1616 Complete EKG 02/06 1616 Active Laboratory Tests 02/05/17 1931: Urine Opiates Screen < 100.00, Methadone Screen < 40, Barbiturate Screen < 60, Ur Phencyclidine Scrn < 6.00, Amphetamines Screen 121, U Benzodiazepines Scrn < 85, Urine Cocaine Screen < 50, Urine Cannabis Screen < 5.00, Urinalysis HEAVY H , Urine Color YEL, Urine Clarity CLEAR, Urine pH 6.0, Ur Specific [place] 1.020, Urine Protein 100 H, Urine Ketones NEG, Urine Nitrite NEG, Urine Bilirubin NEG, Urine Urobilinogen 0.2, Ur Leukocyte Esterase NEG, Ur Microscopic SEDIMENT EXAMINED, Urine RBC RARE, Urine Bacteria RARE H, Hyaline Casts 15-25 H, Urine Hemoglobin NEG, Urine Glucose >=1000 H 02/05/17 162: Anion Gap 8, Estimated GFR > 60, BUN/Creatinine Ratio 12.7, Glucose 97, Lactic Acid 1.9, Calcium 7.8 L, Total Bilirubin 0.5, AST 17, ALT 38, Alkaline Phosphatase 54, Troponin I < 0.01, Total Protein 5.6 L, Albumin 2.9 L, Globulin 2.7, Albumin/Globulin Ratio 1.1, Cortisol PM Sample 15.5 H, PT 10.4, INR 0.99, CBC w Diff NO MAN DIFF REQ, RBC 3.99 L, MCV 90.2, MCH 29.7, RDW 13.5, MPV 7.8, Gran % 62.8, Lymphocytes % 25.8, Monocytes % 8.6, Eosinophils % 2.4, Basophils % 0.4, Absolute Granulocytes 2.8, Absolute Lymphocytes 1.1 L, Absolute Monocytes 0.4, Absolute Eosinophils 0.1, Absolute Basophils 0, PUBS MCHC 32.9 L, Serum Alcohol < 10.0 Microbiology 02/05 1900 BLOOD: Blood Culture - RECD 02/05 1857 BLOOD: Blood Culture - RECD Labs ordered IV fluids ordered patient medicated meclizine 25 by mouth Case discussed with Dr. Manriquez agrees with plan corrected calcium is 8.7 Patient mentating well awake and arousable denies any complaints at this time patient has received 6 L of fluid however remained hypotensive. Discussed with him need for admission I discussed at length his x-ray CAT scan and lab results. rij central line placed by me after pt consented using ultrasound guidance and sterile technique. case d/w dr mcallister will admit Physician a central line was confirmed with x-ray. (STEPHANIE WESLEY) I was at bedside during the central line placement. Chest x-ray status post right IJ placement shows no pneumothorax, good placement of triple lumen. (QUANG ALVRAENGA MD) Departure Departure Disposition: STILL A PATIENT Condition: Stable Clinical Impression Primary Impression: Hypotension Secondary Impressions: Acute electrocardiogram changes, Vertigo Referrals: JONELLE PERKINS MD (PCP/Family) Departure Forms: Customer Survey General Discharge Information Admission Note Spoke With: TABITHA MCALLISTER MD Documentation of Exam: Documentation of any treatments & extenuating circumstances including Concerns Regarding Discharge (functional status, medication knowledge or non-compliance, living conditions, etc.) that warrant an admission rather than observation: trend labs, iv fluids, premature discharge would bem edically harmful (STEPHANIE WESLEY) PA/STRATEGY SPECIALIST Co-Sign Statement Statement: ED Attending supervision documentation- [X] I saw and evaluated the patient. I have also reviewed all the pertinent lab results and diagnostic results. I agree with the findings and the plan of care as documented in the PA's/STRATEGY SPECIALIST's documentation. [] I have reviewed the ED Record and agree with the PA's/STRATEGY SPECIALIST's documentation. [] Additions or exceptions (if any) to the PAs/STRATEGY SPECIALIST's note and plan are summarized below: [] (SAMIA MIRELES,AMIRAH Dent) PA/STRATEGY SPECIALIST Co-Sign Statement Statement: ED Attending supervision documentation- [] I saw and evaluated the patient. I have also reviewed all the pertinent lab results and diagnostic results. I agree with the findings and the plan of care as documented in the PA's/STRATEGY SPECIALIST's documentation. [] I have reviewed the ED Record and agree with the PA's/STRATEGY SPECIALIST's documentation. [] Additions or exceptions (if any) to the PAs/STRATEGY SPECIALIST's note and plan are summarized below: [] (QUANG ALVARENGA MD) Procedures Central Line Central Line Lumen: triple Central Line Procedure: Yes: bentadine prep?, sterile drapes applied, sterile dressing applied. Central Line Position: internal jugular (R) Anesthesia: lidocaine 1% CC's of Anesthesia: 5 Complications: none Central Line Post Position: sutured, good blood return, position confirmed w/ CXR (STEPHANIE WESLEY) Critical Care Note Critical Care Note Critical Care Time: 30-74 min (STEPHANIE WESLEY)
[2017-02-05 16:34] LABS: ABSOLUTE BASOPHIL COUNT 0 /CUMM (0.0-0.2); ABSOLUTE EOSINOPHIL COUNT 0.1 /CUMM (0.0-0.7); ABSOLUTE GRANULOCYTE CT 2.8 /CUMM (1.4-6.5); ABSOLUTE LYMPH COUNT 1.1 /CUMM (1.2-3.4); ABSOLUTE MONOCYTE COUNT 0.4 /CUMM (0.10-0.60); BASOPHIL % 0.4 % (0.0-2.0); EOSINOPHIL % 2.4 % (0-5); GRANULOCYTE % 62.8 % (42.2-75.2); MEAN CORPUSCULAR HGB 29.7 PG (27.0-31.0); MEAN CORPUSCULAR HGB CONC 32.9 G/DL (33.0-37.0); MEAN CORPUSCULAR VOLUME 90.2 FL (80.0-94.0); MEAN PLATELET VOLUME 7.8 FL (7.4-10.4); PLATELET COUNT 161 /CUMM (130-400); RBC DISTRIBUTION WIDTH 13.5 % (11.5-14.5); RED BLOOD CELL CT 3.99 /CUMM (4.70-6.10); WHITE BLOOD CELL COUNT 4.4 /CUMM (4.8-10.8)
[2017-02-05 16:53] LABS: PT 10.4 SEC (9.4-12.5)
--- NOTE | 2017-02-05 17:43 | RADIOLOGY REPORT ---
EXAMINATION: XR PORTABLE CHEST CLINICAL INFORMATION: Hypotension and dizziness. COMPARISON: X-ray from 12/29/2014. TECHNIQUE: Portable AP view of the chest was obtained. FINDINGS: No airspace opacities or pleural effusions are seen. The cardiomediastinal silhouette is normal. No acute osseous abnormality seen. IMPRESSION: Clear lungs. No acute process.
--- NOTE | 2017-02-05 18:12 | CT SCAN REPORT ---
EXAMINATION: CT HEAD WITHOUT CONTRAST CLINICAL INFORMATION: Dizziness and hypotension. COMPARISON: None TECHNIQUE: Contiguous axial imaging was performed from the skull base to vertex without intravenous administration of contrast. DLP: 600.71 mGy-cm FINDINGS: There is no evidence of acute intracranial hemorrhage or territorial infarction. No abnormal mass effect or midline shift is seen. [place] to white matter differentiation is well preserved. No extra-axial fluid collections are identified. The ventricles are normal in size. There is no abnormal attenuation within the brain parenchyma. The osseous structures and soft tissues are normal. The mastoid air cells are well aerated. There is mild mucosal thickening in the ethmoid sinus air cells. IMPRESSION: No acute intracranial pathology.
--- NOTE | 2017-02-05 20:41 | RADIOLOGY REPORT ---
EXAMINATION: XR PORTABLE CHEST CLINICAL INFORMATION: Right IJ placement. COMPARISON: Chest portable 02/05/2017. TECHNIQUE: Portable AP view of the chest was obtained. FINDINGS: There is cardiomegaly probably from semiupright position. There is mild prominence of pulmonary vascularity but no evon congestion seen. There is a new right jugular central line with its tip in SVC. No pneumothorax noted. The lungs are hypoexpanded but clear. There is no pleural effusion. No gross bony abnormality. IMPRESSION: New right jugular central line tip is in SVC. Mild cardiomegaly without congestion. No change from 02/05/2017.
--- NOTE | 2017-02-05 20:55 | History & Physical ---
TOSINHARSHIL [place] 02/05/172051: General Information and HPI MD Statement: I have seen and personally examined ELINA BARKER and documented this H&P. The patient is a 51 year old M who presented with a patient stated chief complaint of [hypotension]. Source of Information: patient, old records, EMS Exam Limitations: no limitations History of Present Illness: 51-year-old gentleman was sent from Dr. kirkpatrick's office to the emergency room for severe hypotension. This patient has a significant past medical history diabetes mellitus complicated with neuropathy, hypertension, obesity hypoventilation syndrome and obstructive sleep apnea on CPAP, dyslipidemia, chest pain syndrome status post negative cardiac cath 2 times, severe bipolar disorder and depression. According to patient this morning while she was in the doctor's kaya's office he felt lightheaded, unsteady on his feet, developed headache and felt extremely fatigued and drained. Patient denies having any chest pain, cold sweats, palpitation, short of breath. His vital signs were checked in the office and he was found to be hypotensive and immediately sent to emergency room. According to patient for the past few days he did not have any nausea vomiting or diarrhea, bleeding of any source, loss of appetite. According to patient's he took his antihypertensive medication (lisinopril and metoprolol) today. 3 days ago patient was started on risperidone in addition to Zoloft and Seroquel which , he uses as needed (the last dose of Seroquel dose was a few days ago). In the emergency room his vital signs were initially 97.2/66/18/84/50/95% in room air patient received 8 L of normal saline bolus and his blood pressure 4 hours later was at 99/55 mmhg. central line was placed and patient was admitted to ICU for severe refractory hypotension. Allergies/Medications Allergies: Coded Allergies: aspirin (PER MED LIST 02/05/17) diphtheria,pertussis (acellular),te (From ADACEL(TDAP ADOLESN/ADULT)(PF)) (PER MED LIST 02/05/17) Home Med list Anusol Hc (Anusol-Hc) 25 MG SUPP.RECT 1 SUP RC BID hemorrhoid Atorvastatin Calcium (Lipitor) 40 MG TABLET 1 TAB PO DAILY CHOLESTEROL ( Reported) Gabapentin 300 MG CAPSULE 1 CAP PO TID RLS (Reported) Ibuprofen 800 MG TABLET 1 TAB PO TID PRN PAIN (Reported) Insulin Aspart (Novolog) 100 UNIT/ML VIAL 0 UNITS SC TIDAC/HS dm BEFORE MEALS Blood Insulin Sugar Units <80 0 81-150 6 151-200 8 201-250 10 251-300 12 301-350 14 351-400 16 >400 18 and Call Doctor AT BEDTIME Blood Insulin Sugar Units <80 0 81-100 0 101-200 0 201-250 2 251-300 3 301-350 4 351-400 5 >400 6 and Call Doctor Insulin Detemir (Levemir) 100 UNIT/ML VIAL 12 UNITS SC BID DM Lamotrigine (Lamictal) 25 MG TABLET 175 MG PO BID SEIZURES & MENTAL HEALTH ( Reported) Lidocaine HCl 2 % JEL..ML. 5 ML TOP TID PRN PAIN Lisinopril 20 MG TABLET 1 TAB PO DAILY BP (Reported) Compliance With Home Meds: GOOD Past History Travel History Traveled to [place] past 21 day No Medical History Blood Transfusion Hx: No Neurological: seizure, RESTLESS LEG SYNDROME EENT: cataracts Cardiovascular: hyperlipidemia Respiratory: SLEEP APNEA CPAP Gastrointestinal: peptic ulcer disease Hepatic: NONE Renal: NONE Musculoskeletal: ARTHRITIS OF LEFT SHOULDER MULTIPLE ABSCESSES Psychiatric: anxiety, bipolar disease, "SUICIDAL TENDENCIES" Endocrine: DM Blood Disorders: NONE Cancer(s): NONE COORDINATOR OF GENETIC SERVICES/Reproductive: NONE History of MRSA: Yes History of VRE: No History of CDIFF: No Tetanus Vaccine: 11/27/14 Surgical History Surgical History: non-contributory, N Past Family/Social History Family History Relations & Conditions if any FATHER FH: diabetes mellitus FH: lymphoma FH: seizures MOTHER FH: CAD (coronary artery disease) FH: diabetes mellitus FH: hyperlipidemia Hypertension Psychosocial History Who Do You Live With? Patient staying with sister temporarily. Services at Home: None Primary Language: Hebrew ETOH Use: denies use Illicit Drug Use: denies illicit drug use Functional Ability ADLs Independent: dressing, eating, toileting, bathing. Ambulation: independent IADLs Independent: shopping, housework, finances, food prep, telephone, transportation , medication admin. Review of Systems Review of Systems Constitutional: Reports: see HPI. EENTM: Reports: see HPI. Cardiovascular: Reports: see HPI. Denies: chest pain, edema, orthopena, palpitations, peripheral edema, syncope. Respiratory: Reports: no symptoms. GI: Reports: no symptoms. Genitourinary: Reports: no symptoms. Musculoskeletal: Reports: no symptoms. Neurological/Psychological: Reports: see HPI, headache, tingling. Exam & Diagnostic Data Last 24 Hrs of Vital Signs/I&O Vital Signs Date Time Temp Pulse Resp B/P Pulse O2 O2 Flow FiO2 Ox Delivery Rate 02/05 2054 97.3 63 16 99/55 96 Room Air 02/05 2051 63 16 99/58 96 Room Air 02/05 1943 62 16 105/63 97 Room Air 02/05 1856 63 89/54 / 1841 62 103/56 02/05 1834 60 98/58 97 Room Air 02/05 1805 70 84/55 / 1744 60 16 84/58 97 Room Air 02/05 1708 60 16 101/58 96 Room Air 02/05 1658 60 95/58 / 1641 62 16 90/52 95 Room Air 02/05 1628 Room Air 02/05 1610 97.2 65 18 84/58 97 Room Air 02/05 1605 97.2 66 18 84/50 95 Room Air Physical Exam General Appearance Alert, Oriented X3, Cooperative, No Acute Distress Skin No Rashes, No Breakdown, No Significant Lesion HEENT Atraumatic, PERRLA, mucous membranes are dry Neck Supple, No JVD Lymphatic Axillary nl, Cervical nl Cardiovascular Normal S1, Normal S2, No Murmurs Lungs Clear to Auscultation, Normal Air Movement Neurological Normal Speech, Normal Tone, Sensation Intact, Reflexes 2+ Extremities No Clubbing, No Cyanosis, No Edema Vascular Normal Pulses, Pulses Symmetrical Last 24 Hrs of Labs/Obie: Laboratory Tests 02/05/171930: Urine Opiates Screen < 100.00, Methadone Screen < 40, Barbiturate Screen < 60, Ur Phencyclidine Scrn < 6.00, Amphetamines Screen 121, U Benzodiazepines Scrn < 85, Urine Cocaine Screen < 50, Urine Cannabis Screen < 5.00, Urinalysis HEAVY H , Urine Color YEL, Urine Clarity CLEAR, Urine pH 6.0, Ur Specific [place] 1.020, Urine Protein 100 H, Urine Ketones NEG, Urine Nitrite NEG, Urine Bilirubin NEG, Urine Urobilinogen 0.2, Ur Leukocyte Esterase NEG, Ur Microscopic SEDIMENT EXAMINED, Urine RBC RARE, Urine Bacteria RARE H, Hyaline Casts 15-25 H, Urine Hemoglobin NEG, Urine Glucose >=1000 H 02/05/17 1625: Anion Gap 8, Estimated GFR > 60, BUN/Creatinine Ratio 12.7, Glucose 97, Lactic Acid 1.9, Calcium 7.8 L, Total Bilirubin 0.5, AST 17, ALT 38, Alkaline Phosphatase 54, Troponin I < 0.01, Total Protein 5.6 L, Albumin 2.9 L, Globulin 2.7, Albumin/Globulin Ratio 1.1, Cortisol PM Sample 15.5 H, PT 10.4, INR 0.99, CBC w Diff NO MAN DIFF REQ, RBC 3.99 L, MCV 90.2, MCH 29.7, RDW 13.5, MPV 7.8, Gran % 62.8, Lymphocytes % 25.8, Monocytes % 8.6, Eosinophils % 2.4, Basophils % 0.4, Absolute Granulocytes 2.8, Absolute Lymphocytes 1.1 L, Absolute Monocytes 0.4, Absolute Eosinophils 0.1, Absolute Basophils 0, PUBS MCHC 32.9 L, Serum Alcohol < 10.0 Microbiology 02/06 2104 UPPER RESP: Surveillance Culture - ORD 02/06 2104 GI: Surveillance Culture - ORD 02/05 190 BLOOD: Blood Culture - RECD 02/05 185 BLOOD: Blood Culture - RECD Diagnostic Data EKG Results Initial EKG in the emergency room was grossly normal poor quality pending repeat EKG CXR Results No acute pathology chest x-ray was clear Other Results No acute intracranial pathology Assessment/Plan Assessment: 51-year-old gentleman was admitted for severe, refractory symptomatic hypotension. Pertinent data WBC 4.4, hemoglobin 11.9 dropped from 14 in December 2016, P.m. cortisol 15.5, troponin less than 0.01, AG 8,sodium 137, potassium 3.8 Urine toxicology negative, significant glucosuria of more than 1000 List of problems #1 refractory hypotension: Rule out ACS versus cardiogenic shock versus sepsis versus DKA versus hyperosmolar state versus polypharmacy Vs Adrenal insufficinecy and hypothyroidism. First set of troponins were negative and initial EKG was seemingly normal. Patient doesn't have any cardiac symptoms in his presentation. Previous echo in 2015 showed left ventricular ejection fraction of 60-70% and he also had 2 negative cardiac catheterization. Patient does not seem to be in septic shock nor in cardiogenic shock. His lab findings but definitely not indicating DKA or hyperosmolar state. However, has been on antihypertensive medication (lisinopril and metoprolol) and he was also just is started on risperidone. In addition to the aforementioned medication he also took his quetiapine. Both, latest medications, are in famous for severe refractory hypotension. * Admit to ICU for continuous monitoring * Continue IV hydration with normal saline 150 mL per hour; * Start levophed is MAP <65 * Trend lactic acid to ensure the efficacy of fluid resuscitation * Restrict ins and outs * Stop all the antihypertensive and psychiatric medication * Cortisol lvl was normal * Get TSH and reflex T3 and T4 * Psych consult in a.m. to review the list of medication * CRCU consult in the am #2 rule out ACS and cardiogenic shock * Repeat EKG and troponin * Obtain CT of the chest to R/O massive pericardila effusion or other chest abnormailities * Obtain echo in the a.m. * Cardiology consult in the a.m. Dr. Calvo #3 diabetes * Stop metformin * Blood sugar 3 times a day before meals * NovoLog sliding scale medium dose 3 times a day before meals * inform Dr Kirkpatrick in am #4 Hx of Seizure * Continue lamotrigine DNR/DNI Pain medication mild moderate severe DVT prophylaxis heparin 5000 units every 8 hours - As Ranked By This Provider Problem List: 1. Benign essential hypertension 2. Diabetes mellitus 3. Dyslipidemia 4. Cellulitis 5. Cellulitis and abscess 6. Skin abscess 7. Bronchitis 8. Foot pain 9. Laceration of nose 10. Rib contusion 11. Abscess 12. Hyperglycemia 13. Syncope 14. DVT prophylaxis 15. DNR (do not resuscitate) 16. DNI (do not intubate) 17. Anxiety 18. Bipolar 1 disorder 19. Bipolar disease, chronic 20. Sleep apnea 21. Complex partial seizure 22. Partial seizure disorder 23. Neck abscess 24. Gluteal abscess 25. Abscess or cellulitis, neck 26. Abscess of buttock, right 27. JOANNE on CPAP 28. Abscess of head 29. Cellulitis of hand, right 30. History of seizure 31. Diabetes mellitus 32. Seizure disorder 33. Poorly controlled diabetes mellitus 34. Abdominal pain 35. Back pain 36. Muscle strain 37. Abscess of skin 38. Scalp abscess 39. Constipation 40. Abdominal pain 41. Hemorrhoid 42. Hypotension 43. Acute electrocardiogram changes 44. Vertigo 45. Bipolar disorder 46. History of suicidal ideation 47. IDDM (insulin dependent diabetes mellitus) 48. Hypertension Core Measures/Miscellaneous Acute Coronary Syndrome ACS Diagnosis: No Cerebrovascular Accident CVA/TIA Diagnosis: No Congestive Heart Failure CHF Diagnosis: No Venous Thromboembolism VTE Risk Factors: Acute medical illness, Age > 40, Obesity [facility] prophylaxis d/t: No contraindications No VTE Pharm Prophylaxis d/t: No contraindications VTE Diagnosis: No VTE Type: NONE VTE Confirmed by (Test): NONE Sepsis Focused Exam Sepsis Cardiac Exam: Regular Rate/Rhythm Severe Sepsis Severe Sepsis Present: No Septic Shock Septic Shock Present: No Miscellaneous Documentation Attending Case Discussed With: TABITHA BRICEÑO MD Primary Care Physician: JONELLE PERKINS MD Patient sees these Specialists Hospitalist Level of Patient Care: Critical Care (CRI) Resident Review Statement Resident Statement: examined this patient, discussed with customer marketing intern, agreed with customer marketing intern, discussed with family, reviewed EMR data (avail), discussed with nursing , discussed with case mgmt, reviewed images, amended to note TABITHA BRICEÑO 02/06/17 0433: Attending MD Review Statement Attending Statement Attending MD Statement: examined this patient, discuss w/resident/PA/TRANSFORMATION COACH, agreed w/resident/PA/TRANSFORMATION COACH, discussed with family, reviewed EMR data (avail), reviewed images, amended to note Attending Assessment/Plan: CC: Tired and lethargy PMH: JOANNE, DM on insulin, bipolar disorder, arthritis, HTN, multiple skin infections in the past, seizure , restless leg syndrome. Patient came to ER from endocrinology office for hypotension. Patient slept late in the morning, woke up and was feeling very tired and lethargic, then he went to endocrinology office, found to have blood pressure very low, and was sent to ER. HE denies any acute blood loss, nausea vomiting or any diarrhea, fever, chills, chest pain, cough, shortness of breath, passing out episodes, skin infections, urinary symptoms. Last few days patient has been getting on and off dizzy spells/ Vertigo. Vitals: Persistently hypotensive in the ER, heart rate in 60s, afebrile, saturating well on room air. On examination :A O 3, cooperative, no acute distress, neck supple, speech slurry secondary to dry tongue, no JVD, no lymphadenopathy, mucosa moist, no focal neurological deficit, no dependent edema, no obvious skin rashes or inflammation CVS: S1-S2, RRR. RS: Clear to auscultate bilaterally. Abdomen: Soft , NT, ND, bowel sounds present. Labs: WBC 4.4, hemoglobin 11.9, neutrophils 62.8, chloride 108, lactate 1.9, calcium 7.8, all limiting 2.9. Troponin less than 0.01 CXR : Cardiomegaly CT head: No acute intracranial pathology CT chest: Unremarkable A and P Patient significantly hypotensive in ER, received aggressive hydration with at least 9 L of normal saline boluses, still blood pressure in soft range, central line was placed, unclear etiology of hypotension. No obvious source of infection found, cortisol was checked which was normal range, ?Polypharmacy, r/o infection , rule out cardiac causes. His hemoglobin is low, denies any acute blood loss. Inappropriate heart rate response secondary to beta ina - Admit to ICU - Continue IV fluids, Levophed if persistent hypotension with 9th L - Trend lactate, troponin - 2-D echo in a.m. - Blood pressure responds appropriately, tapered down on disc or discontinue IV fluids - Blood culture, UA urine culture, U tox - Considered discontinuing or decreasing the dose of lisinopril upon discharge. - Heparin for DVT prophylaxis - No opiates - Sliding scale aspart insulin - Continue lamotrigine, Seroquel, gabapentin TTS 1 hr.
[2017-02-05 22:13] LABS: ABSOLUTE BASOPHIL COUNT 0 /CUMM (0.0-0.2); ABSOLUTE EOSINOPHIL COUNT 0.1 /CUMM (0.0-0.7); ABSOLUTE GRANULOCYTE CT 2.9 /CUMM (1.4-6.5); ABSOLUTE LYMPH COUNT 1.5 /CUMM (1.2-3.4); ABSOLUTE MONOCYTE COUNT 0.3 /CUMM (0.10-0.60); BASOPHIL % 0.4 % (0.0-2.0); EOSINOPHIL % 1.3 % (0-5); GRANULOCYTE % 60.3 % (42.2-75.2); HEMATOCRIT 34.3 % (42-52); MEAN CORPUSCULAR HGB 30.1 PG (27.0-31.0); MEAN CORPUSCULAR HGB CONC 33.3 G/DL (33.0-37.0); MEAN CORPUSCULAR VOLUME 90.3 FL (80.0-94.0); PLATELET COUNT 153 /CUMM (130-400); RBC DISTRIBUTION WIDTH 13.6 % (11.5-14.5); WHITE BLOOD CELL COUNT 4.8 /CUMM (4.8-10.8)
--- NOTE | 2017-02-05 23:05 | CT SCAN REPORT ---
EXAMINATION: CT CHEST WITHOUT CONTRAST CLINICAL INFORMATION: Hypotension. Pericardial effusion. COMPARISON: Chest 02/05/2017. TECHNIQUE: Multidetector volumetric CT imaging of the chest was done. Axial MIP volume rendering provided. Sagittal and coronal reformatted images were obtained. DLP: 718. mGy-cm FINDINGS: LUNGS: Both lungs are well-expanded without acute pneumonic process. There is bilateral superior major fissure thickening right greater than left with underlying upper lobe atelectasis. No visible mass, consolidation or pulmonary nodules seen. MEDIASTINUM: The heart size and the great vessels are normal caliber. There is no pericardial effusion. A right jugular catheter tip remains in SVC. Central trachea and the bronchi appear widely patent. Thyroid lobes are symmetrical and normal. No abnormal mediastinal or hilar lymphadenopathy seen. PLEURA: There is minimal bilateral posterior pleural thickening but no effusion or pleural plaque seen. AXILLA: There are small shotty lymph nodes in the axilla. The chest wall appears unremarkable. UPPER ABDOMEN: Visualized liver, spleen and pancreas appears unremarkable. OSSEOUS STRUCTURES: There is moderate ventral and lateral spondylosis upper and mid dorsal spine. No lytic process seen. IMPRESSION: No evidence of pericardial effusion. There is mild thickening of superior major fissure right greater than left with underlying upper lobe atelectasis our resolving old infiltrate . There is no pneumonic consolidation. Minimal bilateral lower lobe posterior pleural thickening but no pleural effusion seen.
[2017-02-06] VITALS: BP 118/78
[2017-02-06 04:22] LABS: ABSOLUTE BASOPHIL COUNT 0 /CUMM (0.0-0.2); ABSOLUTE EOSINOPHIL COUNT 0.1 /CUMM (0.0-0.7); ABSOLUTE GRANULOCYTE CT 3.8 /CUMM (1.4-6.5); ABSOLUTE LYMPH COUNT 2.3 /CUMM (1.2-3.4); ABSOLUTE MONOCYTE COUNT 0.4 /CUMM (0.10-0.60); BASOPHIL % 0.3 % (0.0-2.0); GRANULOCYTE % 56.6 % (42.2-75.2); HEMATOCRIT 35.4 % (42-52); MEAN CORPUSCULAR HGB 30.7 PG (27.0-31.0); MEAN CORPUSCULAR HGB CONC 33.4 G/DL (33.0-37.0); MEAN CORPUSCULAR VOLUME 91.9 FL (80.0-94.0); MEAN PLATELET VOLUME 8.4 FL (7.4-10.4); PLATELET COUNT 160 /CUMM (130-400); RBC DISTRIBUTION WIDTH 13.6 % (11.5-14.5); RED BLOOD CELL CT 3.86 /CUMM (4.70-6.10); WHITE BLOOD CELL COUNT 6.7 /CUMM (4.8-10.8)
--- NOTE | 2017-02-06 04:36 | Admission Certification ---
Admission Certification Certification Statement - As attending physician, I certify that at the time of - admission, based on clinical presentation, severity of - symptoms, need for further diagnostic testing and - therapeutic interventions, and risk of adverse outcomes - without in-hospital treatment, in my clinical assessment, - this patient requires an acute hospital stay for a minimum - of two nights or longer. I have also considered psychsocial - factors such as support system, advanced age, financial - issues, cognitive issues, and failed out-patient treatments, - past re-admission history, safety of patient, and lack of - compliance as applicable. Specific rationale supporting this admission is: Hypotension
--- NOTE | 2017-02-06 07:05 | Cons- CRCU ---
[facility] 02/06/17 0704: General Information and HPI Consulting Request Date of Consult: 02/06/17 Requested By: Dr Ulloa Exam Limitations: no limitations History of Present Illness: Mr. Finley is a 51-year-old gentleman with past medical history of diabetes mellitus, hypertension, obesity hypoventilation syndrome, obstructive sleep apnea, dyslipidemia, bipolar disorder and depression who presented to the emergency department on 02/05/2017 after having an episode of transient lightheadedness, being unsteady on his feet and experiencing transient vision changes. He was at the office of his endocrinilogist (Dr Kirkpatrick) and was subsequently sent into the ED for additional Work up. 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 Patient reports that he has been in his normal state of health and reports good medication compliance, although states his last HBA1C was 13.4. He states he was recently started on Metformin in October. Patient states he was also recently started on Risperidone Seven days ago ( 0.25mg BID) by [facility] ([address] [place] [address]. [place] [address]). This was to help stabilize his mood, after the patient reported continued experiencing a depressed mood and the lack of efficacy of his other psychiatric medications. In addition to the Risperidone the patient takes Zoloft 100mg Daily. He no longer takes Seroquel, this medication was stopped approximately one year ago. Vital signs at the time of admission 02/05: BP 84/50. Pulse 66. T: 97.2 Resp 18. SPO2: 95 %. In the ER the patient received aggressive fluid hydration ( 9L). Prior to this admission the patient was seen at the emergency department ED on January 19 and on January 13 after experiencing abdominal pain, vomiting and constipation (3 day duration). Primary care physician is Dr. Violet Holt. Production Department Supervisor: Dr Celena Kirkpatrick Allergies/Medications Allergies: Coded Allergies: aspirin (PER MED LIST 02/05/17) diphtheria,pertussis (acellular),te (From ADACEL(TDAP ADOLESN/ADULT)(PF)) (PER MED LIST 02/05/17) Home Med List: Anusol Hc (Anusol-Hc) 25 MG SUPP.RECT 1 SUP RC BID hemorrhoid Atorvastatin Calcium (Lipitor) 40 MG TABLET 1 TAB PO DAILY CHOLESTEROL ( Reported) Gabapentin 300 MG CAPSULE 1 CAP PO TID RLS (Reported) Ibuprofen 800 MG TABLET 1 TAB PO TID PRN PAIN (Reported) Insulin Aspart (Novolog) 100 UNIT/ML VIAL 76 UNITS SC AD VGO INSULIN PUMP - DM (Reported) Ketorolac Tromethamine 10 MG TABLET 1 TAB PO Q4-6 PRN PRN PAIN (Reported) Lamotrigine (Lamictal) 25 MG TABLET 175 MG PO BID SEIZURES & MENTAL HEALTH ( Reported) Lidocaine HCl 2 % JEL..ML. 5 ML TOP TID PRN PAIN Lisinopril 20 MG TABLET 1 TAB PO DAILY BP (Reported) Metformin HCl (Glucophage) 1,000 MG TABLET 1 TAB PO BID DM (Reported) Metoprolol Tartrate 25 MG TABLET 1 TAB PO BID HEART/BP (Reported) Quetiapine Fumarate (Seroquel) 300 MG TABLET 1 TAB PO DAILY UNKNOWN (Reported ) Risperidone (Risperdal) 0.25 MG TABLET 1 TAB PO AD UNKNOWN (Reported) Sertraline HCl (Zoloft) (Unknown Strength) TABLET (Unknown Dose) PO DAILY MENTAL HEALTH (Reported) Sub-Q Insulin Device, 40 Unit (Vgo 40) (Unknown Strength) EACH (Unknown Dose) SC TIDAC DM- NOVOLOG (Reported) Current Medications: Current Medications Sig/Gallo Start time Last Medication Dose Route Stop Time Status Admin Acetaminophen 650 MG Q6P PRN 02/05 2100 AC PO Atorvastatin Calcium 40 MG 1700 02/06 1700 AC PO Gabapentin 300 MG TID 02/05 2200 AC 02/05 PO 2331 Heparin Sodium 5,000 UNIT Q8 02/05 2200 AC 02/06 (Porcine) SC 0616 Ibuprofen 800 MG TID PRN 02/05 2115 AC PO Insulin Aspart 0 TIDAC 02/06 0800 AC SC Lamotrigine 175 MG BID 02/05 2200 AC 02/05 PO 2331 Lidocaine 1 ANIRUDH TID PRN 02/05 211 AC TOP Lidocaine 0 .STK-MED ONE 02/05 1938 DC .ROUTE Meclizine HCl 25 MG ONCE ONE 02/05 1645 DC 02/05 PO 02/05 1646 1642 Meclizine HCl 0 .STK-MED ONE 02/05 1644 DC PO Sodium Chloride 1,000 ML ONCE ONE 02/05 2315 DC 02/05 IV 02/06 0714 2331 Sodium Chloride 1,000 ML BOLUS ONE / 2115 DC 04/10 IV 04/10 2214 2118 Sodium Chloride 1,000 ML BOLUS ONE 02/05 2115 DC 04/10 IV /10 2214 2118 Sodium Chloride 1,000 ML BOLUS ONE / 2115 DC 04/10 IV /10 2214 2118 Sodium Chloride 1,000 ML BOLUS ONE 02/05 1900 DC 04/10 IV 02/05 1959 1909 Sodium Chloride 1,000 ML BOLUS ONE 02/05 1800 DC 04/10 IV /10 1859 1811 Sodium Chloride 1,000 ML BOLUS ONE 02/05 1745 DC 04/10 IV 04/10 1844 1742 Sodium Chloride 1,000 ML BOLUS ONE 02/05 1630 DC 04/10 IV /10 1729 1644 Sodium Chloride 1,000 ML BOLUS ONE 02/05 1615 DC 04/10 IV 04/ 1714 1615 Review of Systems Review of Systems Constitutional: Reports: weakness. Denies: chills, diaphoresis, fever, malaise. Cardiovascular: Denies: chest pain, edema, orthopena, palpitations. Respiratory: Denies: cough, hemoptysis, orthopnea, short of breath. GI: Denies: abdominal pain, bloating, constipation, diarrhea, distention, bowel incontinence. Genitourinary: Denies: discharge, dysuria, frequency, hematuria. Musculoskeletal: Denies: back pain, gout, joint pain, joint swelling. 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 Home Who Do You Live With? Patient staying with sister temporarily. Services at Home: None Primary Language: Mauritian Smoking Status: Never Smoked ETOH Use: denies use Illicit Drug Use: denies illicit drug use Functional Ability ADLs Independent: dressing, eating, toileting, bathing. Ambulation: independent IADLs Independent: shopping, housework, finances, food prep, telephone, transportation , medication admin. Exam & Diagnostic Data Last 24 Hrs of Vital Signs/I&O Vital Signs Date Time Temp Pulse Resp B/P Pulse O2 O2 Flow FiO2 Ox Delivery Rate 02/06 0000 97.2 66 12 118/78 97 Room Air Room Air 02/05 2254 96 Room Air Room Air 02/05 2054 97.3 63 16 99/55 96 Room Air 02/05 2051 63 16 99/58 96 Room Air 02/05 1943 62 16 105/63 97 Room Air 02/05 1856 63 89/54 02/05 1841 62 103/56 02/05 1834 60 98/58 97 Room Air 02/05 1805 70 84/55 10 1744 60 16 84/58 97 Room Air 02/05 1708 60 16 101/58 96 Room Air 02/05 1658 60 95/58 /10 1641 62 16 90/52 95 Room Air 02/05 1628 Room Air 02/05 1610 97.2 65 18 84/58 97 Room Air 02/05 1605 97.2 66 18 84/50 95 Room Air Intake & Output 02/06 1600 02/06 0800 02/06 0000 Intake Total 40 9000 Output Total 1300 300 Balance -1260 8700 Intake, IV 9000 Intake, Oral 40 Number 1 0 Bowel Movements Output, Urine 1300 300 Patient 109.911 kg Weight Physical Exam General Appearance: well developed/nourished, no apparent distress, alert, awake , lethargic, obese Head: atraumatic, normal appearance Respiratory: normal breath sounds, chest non-tender, no respiratory distress Cardiovascular: regular rate/rhythm Gastrointestinal: normal bowel sounds, soft, non-tender, distention Back: normal range of motion Extremities: normal inspection, no edema, pelvis stable Neurologic/Psych: awake, alert, oriented x 3, 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 Cranial Nerves: normal hearing, normal speech Last 48 Hrs of Labs/Obie: Laboratory Tests 02/06/17 0330: Troponin I 0.02 02/06/17 0330: Lactic Acid 0.6 L 02/06/17 0330: Anion Gap 8, Estimated GFR > 60, Glucose 83, Calcium 7.3 L, Phosphorus 2.8, Magnesium 1.7, Total Bilirubin 0.6, AST 21, ALT 36, Albumin 2.7 L, CBC w Diff NO MAN DIFF REQ, RBC 3.86 L, MCV 91.9, MCH 30.7, RDW 13.6, MPV 8.4, Gran % 56.6 , Lymphocytes % 35.2, Monocytes % 5.9, Eosinophils % 2.0, Basophils % 0.3, Absolute Granulocytes 3.8, Absolute Lymphocytes 2.3, Absolute Monocytes 0.4, Absolute Eosinophils 0.1, Absolute Basophils 0, PUBS MCHC 33.4 02/05/17 214: Lactic Acid 0.6 L 02/05/172140: Anion Gap 7, Estimated GFR > 60, Glucose 97, Calcium 6.7 L, Phosphorus 3.3, Magnesium 1.6, Total Bilirubin 0.5, AST 27, ALT 44, Troponin I < 0.01, Albumin 2.6 L, TSH 0.602, Free T4 0.92, CBC w Diff NO MAN DIFF REQ, RBC 3.80 L, MCV 90.3, MCH 30.1, RDW 13.6, MPV 8.0, Gran % 60.3, Lymphocytes % 31.4, Monocytes % 6.6, Eosinophils % 1.3, Basophils % 0.4, Absolute Granulocytes 2.9, Absolute Lymphocytes 1.5, Absolute Monocytes 0.3, Absolute Eosinophils 0.1, Absolute Basophils 0, PUBS MCHC 33.3 02/05/172133: Lactic Acid Cancelled 02/05/17 1931: Urine Opiates Screen < 100.00, Methadone Screen < 40, Barbiturate Screen < 60, Ur Phencyclidine Scrn < 6.00, Amphetamines Screen 121, U Benzodiazepines Scrn < 85, Urine Cocaine Screen < 50, Urine Cannabis Screen < 5.00, Urinalysis HEAVY H , Urine Color YEL, Urine Clarity CLEAR, Urine pH 6.0, Ur Specific [place] 1.020, Urine Protein 100 H, Urine Ketones NEG, Urine Nitrite NEG, Urine Bilirubin NEG, Urine Urobilinogen 0.2, Ur Leukocyte Esterase NEG, Ur Microscopic SEDIMENT EXAMINED, Urine RBC RARE, Urine Bacteria RARE H, Hyaline Casts 15-25 H, Urine Hemoglobin NEG, Urine Glucose >=1000 H 02/05/17 1625: Anion Gap 8, Estimated GFR > 60, BUN/Creatinine Ratio 12.7, Glucose 97, Lactic Acid 1.9, Calcium 7.8 L, Total Bilirubin 0.5, AST 17, ALT 38, Alkaline Phosphatase 54, Troponin I < 0.01, Total Protein 5.6 L, Albumin 2.9 L, Globulin 2.7, Albumin/Globulin Ratio 1.1, Cortisol PM Sample 15.5 H, PT 10.4, INR 0.99, CBC w Diff NO MAN DIFF REQ, RBC 3.99 L, MCV 90.2, MCH 29.7, RDW 13.5, MPV 7.8, Gran % 62.8, Lymphocytes % 25.8, Monocytes % 8.6, Eosinophils % 2.4, Basophils % 0.4, Absolute Granulocytes 2.8, Absolute Lymphocytes 1.1 L, Absolute Monocytes 0.4, Absolute Eosinophils 0.1, Absolute Basophils 0, PUBS MCHC 32.9 L, Serum Alcohol < 10.0 Assessment/Plan Impression/Plan: Mr. Finley is a 51-year-old gentleman with past medical history of diabetes mellitus, hypertension, obesity hypoventilation syndrome, obstructive sleep apnea, dyslipidemia, bipolar disorder and depression who presented to the emergency department on 02/05/2017 after having an episode of transient lightheadedness, being unsteady on his feet and experiencing transient vision changes. Patient recently started a new antipsychotic on 01/30/2017: Risperidone 0.25 MG BID. Six Months ago, the patient presented to [facility] Complaning of Chest pain. He was started on Metoprolol During this admission. Problem List: #Hypotension #Diabetes Poorly controlled. Last HbA1C 13.4 #Obesity hypoventilation syndrome #History of mood disorder: depression and bipolar. #History of seizures #Anemia. Right IJ Line Day #2. (consider discontinuing 02/07/2017 if MAP > 65 is maintained , overnight) Brody day # 2 (consider discontinuing once patient is more active, 02/07/2017) Respiratory Saturating well 97 % on RA. Not on any supplemental oxygen. Conitinue to monitor. ID Wbc this am: 6.7. Repeat CBC on 02/07/2017. Cardiovascular Patient hypotensive likley due to overmedication and or medication interactions. Lactic Acid trended down from 1.9, to 0.6 and 0.6 respetively, ruled out any potential hypoperfusion to organs or end organ damage. If patients MAP < 65, consider Levophed.Current MAP: 91. Troponins negative, <0.01,<0.01, 0.02. Supplemental fuids can be discontiued. Obtain records from [facility]. We have an echocardiogram ordered for EF assessment. Last echocardiogram done on 12/2014. EF then was 70%. Mild Left ventricular Hypertropy and Trace tricuspid regurgitation. If blood pressure continues to increase, consider beginning ANISHA 10 mg on 2016. Patient will need an outpatient stress test owing to multiple risk factors for CAD. Hematology H/H this am: 11.8 and 35.4 This is unusually low for this patient who normally is up at the 15.0 esther. Rule out blood loss anemia. Guiaic all stools. Patient might be a Candidate for an outpatient GI referral ( was previously given a referral to follow up with Dr Blanco) and Colonoscopy. Monitor H/H in AM 02/07/2017. Heme Blood pressure responded well to aggressive fluid hydration. Blood pressure at midnight was 118/78. This morning his blood pressure is: 142/81. AM cortisol sample ordered 02/07/2017. If < 5 ug/dL diagnostic for adrenalcortical disease. Metabolic This morning, during our clinical encounter, the patient was alert and oriented blood pressure had increased any no longer felt dizzy. Patient did state that he felt vision was slightly blurry. This normally occurs during periods of hypoglycemia. Blood sugar checked shortly thereafter was 99. Formal endocrinology consultation was obtained. Recomendations regarding sliding scale have been implemented. BS: 255-->307. Alimentary Consistent Carbohydrate Two. Neurology Patient is currently prescribed: Risperidone:0.25 BID.Sertraline: 50mg. Anti Psychotic medications are currently on hold. Risperidone has been shown to contribute to orthostatic hypotension. Needs to be used with caution with those who might be prediscposed to hypotension/ bradycardia. Previous records obtained from psychiatry does show that the patient did not feel that his medications were effacacious. We've obtained a formal psychiatry consult to further clarify and recommend any potential medication changes which could be contrary to this patient's clinical picture. Diet: Consistent carbohydrate IVF: off DVT ppx ALPS Code DNR/DNI Problem List: 1. Syncope 2. Vertigo 3. Hypotension 4. Diabetes mellitus Consult Acknowledgment - Thank you for your consult request. Sania CARDENAS MD ТАТЬЯНА 02/06/17 0952: Assessment/Plan Other Findings/Comments: I have personally seen and examined the patient. I agree with the resident's assessment and plan as detailed above. Briefly, the patient is a 51-year-old male with diabetes, hypertension, obesity hypoventilation syndrome, obstructive sleep apnea, dyslipidemia, bipolar disorder and depression. The patient was admitted to the critical care unit after being found to have hypotension in Dr. kirkpatrick's office. The patient at that time complained of feeling fatigued and lethargic. He denied any fevers, chills, chest pain, nausea, vomiting, diarrhea , or dysuria. There is no history of blood loss. In the emergency department the patient's blood pressure was in the 80s for more than 4 hours. He received a total of 9 L of IV fluids which improved his blood pressure. Workup was negative for any evidence of infection, and the patient is being monitored off antibiotics. A cortisol level was checked which was appropriately elevated. The patient was noted to have an elevated JVP following fluid resuscitation however this is now improved and his current CVP is 12. The patient reports feeling fatigued but does feel markedly improved overall. He has some blurry vision which normally occurs during periods of hypoglycemia. His blood sugar was checked at the bedside and was 99. A CAT scan of the chest showed no evidence of pericardial effusion. There was mild thickening of the superior major fissure on the right with some mild atelectasis or resolving old infiltrate. Impression: 1. Hypotension requiring aggressive IV fluid hydration without pressor therapy. The patient may have been volume depleted that the etiology remains unclear. There has been no obvious source of infection identified. The patient's cortisol level was appropriately elevated. The thyroid function panel was checked and was within normal limits. Troponins were negative 3. The patient' s urine tox screen was negative. The patient's lactic acid was negative as well. He is now hemodynamically stable with excellent urine output. Polypharmacy? 2. Insulin-dependent diabetes. 3. Mild anemia without history of bleeding. 4. History of obesity hypoventilation syndrome and obstructive sleep apnea. 5. History of chest pain syndrome status post negative cardiac catheterization twice. 6. History of dyslipidemia. 7. Severe bipolar disorder and depression. 8. History of seizures, on lamotrigine. Plan: * Continue to monitor the blood pressure closely. * We'll start Levophed if the patient's mean arterial pressure is less than 65. * Monitor strict I's and O's. * Antihypertensive medications held. * We'll need to slowly restart patient's psychiatric medications. * Psychiatry consults review home medications. * ECHO and cardiology consult ordered. * Continue to monitor blood sugars, please request endocrine consult. * DVT prophylaxis at all times. * Continue to monitor in the critical care unit for now. Consult Acknowledgment - Thank you for your consult request.
[2017-02-06 08:00] VITALS: BP 132/70
--- NOTE | 2017-02-06 14:22 | Cons- Cardiology ---
General Information and HPI Consulting Request Date of Consult: 02/06/17 Requested By: TABITHA BRICEÑO MD History of Present Illness: Rigoberto is a 51 year old male with history of hypertension, dyslipidemia, diabetes mellitus and obstructive sleep apnea. He also carries a history of chest pain syndrome and is s/p two cardiac catheterizations with the most recent at [facility] in 2010. This study was reportedly within normal limits. This patient also has a seizure disorder and has had loss of consciousness. Over the past 6 months this patient has felt lightheaded. It should be noted that about 7 months ago he presented to [facility] for chest pain and was started on Metopolol. Yesterday, while seeing Dr. Valencia in her office, it was noted that the patient was hypotensive. He was admitted for this issue and received 9 liters of saline and his antihypertensive drug regimen was held. Having done the above the patient now feels improved, without chst pain or lightheadedness. He denies any shortness of breath or palpitations. At times this patient is physically active and is free of any chest discomfort but manual pressure over the left upper chest has elicited a mild chest discomfort radiating up to his shoulder. Cardiac workup has included a stress test showing mild apical ischemia with a normal EF of 55%. His most recent echocardiogram shows a normal EF of 70% with mild LVH and trace TR. Allergies/Medications Allergies: Coded Allergies: aspirin (PER MED LIST 02/05/17) diphtheria,pertussis (acellular),te (From ADACEL(TDAP ADOLESN/ADULT)(PF)) (PER MED LIST 02/05/17) Home Med List: Anusol Hc (Anusol-Hc) 25 MG SUPP.RECT 1 SUP RC BID hemorrhoid Atorvastatin Calcium (Lipitor) 40 MG TABLET 1 TAB PO DAILY CHOLESTEROL ( Reported) Gabapentin 300 MG CAPSULE 1 CAP PO TID RLS (Reported) Ibuprofen 800 MG TABLET 1 TAB PO TID PRN PAIN (Reported) Insulin Aspart (Novolog) 100 UNIT/ML VIAL 76 UNITS SC AD VGO INSULIN PUMP - DM (Reported) Ketorolac Tromethamine 10 MG TABLET 1 TAB PO Q4-6 PRN PRN PAIN (Reported) Lamotrigine (Lamictal) 25 MG TABLET 175 MG PO BID SEIZURES & MENTAL HEALTH ( Reported) Lidocaine HCl 2 % JEL..ML. 5 ML TOP TID PRN PAIN Lisinopril 20 MG TABLET 1 TAB PO DAILY BP (Reported) Metformin HCl (Glucophage) 1,000 MG TABLET 1 TAB PO BID DM (Reported) Metoprolol Tartrate 25 MG TABLET 1 TAB PO BID HEART/BP (Reported) Quetiapine Fumarate (Seroquel) 300 MG TABLET 1 TAB PO DAILY UNKNOWN (Reported ) Risperidone (Risperdal) 0.25 MG TABLET 1 TAB PO AD UNKNOWN (Reported) Sertraline HCl (Zoloft) (Unknown Strength) TABLET (Unknown Dose) PO DAILY MENTAL HEALTH (Reported) Sub-Q Insulin Device, 40 Unit (Vgo 40) (Unknown Strength) EACH (Unknown Dose) SC TIDAC DM- NOVOLOG (Reported) Review of Systems Review of Systems: seizures with loss of consciousness Past History Travel History Traveled to [place] past 21 day No Medical History Blood Transfusion Hx: No Neurological: seizure, RESTLESS LEG SYNDROME EENT: cataracts Cardiovascular: hypertension, hyperlipidemia Respiratory: SLEEP APNEA CPAP Gastrointestinal: peptic ulcer disease Hepatic: NONE Renal: NONE Musculoskeletal: ARTHRITIS OF LEFT SHOULDER MULTIPLE ABSCESSES Psychiatric: anxiety, bipolar disease, depression, "SUICIDAL TENDENCIES" Endocrine: DM Blood Disorders: NONE Cancer(s): NONE 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 Mother: heart transplant in her 40's Psychosocial History Where Do You Live? Home Who Do You Live With? Patient staying with sister temporarily. Services at Home: None Primary Language: Lao Smoking Status: Never Smoked ETOH Use: denies use Illicit Drug Use: denies illicit drug use Functional Ability ADLs Independent: dressing, eating, toileting, bathing. Ambulation: independent IADLs Independent: shopping, housework, finances, food prep, telephone, transportation , medication admin. Exam & Diagnostic Data Vital Signs and I&O Vital Signs Date Time Temp Pulse Resp B/P Pulse O2 O2 Flow FiO2 Ox Delivery Rate 02/07 800 98.6 70 16 132/70 97 Room Air 02/06 0800 97 Room Air 02/06 0000 97.2 66 12 118/78 97 Room Air Room Air 02/05 2254 96 Room Air Room Air 02/05 2054 97.3 63 16 99/55 96 Room Air 02/05 2051 63 16 99/58 96 Room Air 02/05 1943 62 16 105/63 97 Room Air 02/05 1856 63 89/54 02/05 1841 62 103/56 02/05 1834 60 98/58 97 Room Air 02/05 1805 70 84/55 02/05 1744 60 16 84/58 97 Room Air 02/05 1708 60 16 101/58 96 Room Air 02/05 1658 60 95/58 02/05 1641 62 16 90/52 95 Room Air 02/05 1628 Room Air 02/05 1610 97.2 65 18 84/58 97 Room Air 02/05 1605 97.2 66 18 84/50 95 Room Air Intake & Output 02/06 1600 02/06 0800 02/06 0000 02/05 1600 02/05 0800 02/05 0000 Intake Total 40 9000 Output Total 1300 300 Balance -1260 8700 Intake, IV 9000 Intake, Oral 40 Number 1 0 Bowel Movements Output, Urine 1300 300 Patient 242 lb Weight Physical Exam: General: WD/ WN male in NAD; alert and oriented x 3 HEENT: NC/ AT, PERRL, EOMI Neck: no JVD, no carotid bruit Heart: RRR w/o murmur lungs: clear bilaterally ABdomen: soft, NT, +ve bowel sounds Extremities: no edema Assessment/Plan Assessment/Plan * This patient almost certainly was hypotensive due to overmedication. His symptoms began about six months ago after beginning Metoprolol. In consideration of his diabestes I fould begin Lisinopril at 10mg daily. It should be noted that this patient has had syncope in the past. He has atypical and chronic chest pain. Nevertheless, he does have multiple risk factors for coronary artery disease. I would therefore pursue risk stratification with a stress test. If this study if suggestive of ischemia then a trial of a small dose of beta ina would be reasonably. For now I would not restart any beta blockers. The stress test could be done as an outpatient. * Obtain an echocardiogram to assess his overall EF. Consult Acknowledgment - Thank you for your consult request.
[2017-02-06 16:00] VITALS: BP 122/62
--- NOTE | 2017-02-06 17:41 | Cons- Endocrinology ---
See Addendum General Information and HPI Consulting Request Date of Consult: 02/06/17 Requested By: ICU team Reason for Consult: management of diabetes Source of Information: patient, old records Exam Limitations: no limitations History of Present Illness: 51-year-old gentleman who has a significant past medical history diabetes mellitus complicated with neuropathy on VGO-40, hypertension, obstructive sleep apnea on CPAP, dyslipidemia, chest pain syndrome status post negative cardiac cath 2 times, bipolar disorder and depression. He came to office for routine diabetes f/u. His glucose and blood pressure were found to be low. VGO device was discontinued in office. Patient felt lightheaded, unsteady on his feet, developed headache and felt extremely fatigued and drained. His SBP was found to be in the 60s. EMS was called and he was brought to ER. The patient was admitted to ICU for hypotension. Random cortisol was done on 02/05 and it was 15.5 which is suboptimal. Allergies/Medications Allergies: Coded Allergies: aspirin (PER MED LIST 02/05/17) diphtheria,pertussis (acellular),te (From ADACEL(TDAP ADOLESN/ADULT)(PF)) (PER MED LIST 02/05/17) Home Med List: Anusol Hc (Anusol-Hc) 25 MG SUPP.RECT 1 SUP RC BID hemorrhoid Atorvastatin Calcium (Lipitor) 40 MG TABLET 1 TAB PO DAILY CHOLESTEROL ( Reported) Gabapentin 300 MG CAPSULE 1 CAP PO TID RLS (Reported) Ibuprofen 800 MG TABLET 1 TAB PO TID PRN PAIN (Reported) Insulin Aspart (Novolog) 100 UNIT/ML VIAL 76 UNITS SC AD VGO INSULIN PUMP - DM (Reported) Ketorolac Tromethamine 10 MG TABLET 1 TAB PO Q4-6 PRN PRN PAIN (Reported) Lamotrigine (Lamictal) 25 MG TABLET 175 MG PO BID SEIZURES & MENTAL HEALTH ( Reported) Lidocaine HCl 2 % JEL..ML. 5 ML TOP TID PRN PAIN Lisinopril 20 MG TABLET 1 TAB PO DAILY BP (Reported) Metformin HCl (Glucophage) 1,000 MG TABLET 1 TAB PO BID DM (Reported) Metoprolol Tartrate 25 MG TABLET 1 TAB PO BID HEART/BP (Reported) Quetiapine Fumarate (Seroquel) 300 MG TABLET 1 TAB PO DAILY UNKNOWN (Reported ) Risperidone (Risperdal) 0.25 MG TABLET 1 TAB PO AD UNKNOWN (Reported) Sertraline HCl (Zoloft) (Unknown Strength) TABLET (Unknown Dose) PO DAILY MENTAL HEALTH (Reported) Sub-Q Insulin Device, 40 Unit (Vgo 40) (Unknown Strength) EACH (Unknown Dose) SC TIDAC DM- NOVOLOG (Reported) Review of Systems Review of Systems Constitutional: Reports: see HPI, weakness. Cardiovascular: Denies: chest pain. Respiratory: Denies: short of breath. GI: Denies: abdominal pain. Neurological/Psychological: Reports: see HPI. Hematologic/Endocrine: Denies: polyuria, polydipsia. Past History Travel History Traveled to [place] past 21 day No Medical History Blood Transfusion Hx: No Neurological: seizure, RESTLESS LEG SYNDROME EENT: cataracts Cardiovascular: hypertension, hyperlipidemia Respiratory: SLEEP APNEA CPAP Gastrointestinal: peptic ulcer disease Hepatic: NONE Renal: NONE Musculoskeletal: ARTHRITIS OF LEFT SHOULDER MULTIPLE ABSCESSES Psychiatric: anxiety, bipolar disease, depression, "SUICIDAL TENDENCIES" Endocrine: DM Blood Disorders: NONE Cancer(s): NONE NECK CUTTER/Reproductive: NONE Surgical History Surgical History: ABSCESS REMOVAL tonsillectomy Family History Relations & Conditions If Any: FATHER FH: diabetes mellitus FH: lymphoma FH: seizures MOTHER FH: CAD (coronary artery disease) FH: diabetes mellitus FH: hyperlipidemia Hypertension Psychosocial History Where Do You Live? Home Who Do You Live With? Patient staying with sister temporarily. Services at Home: None Primary Language: Palestinian Smoking Status: Never Smoked ETOH Use: denies use Illicit Drug Use: denies illicit drug use Functional Ability ADLs Independent: dressing, eating, toileting, bathing. Ambulation: independent IADLs Independent: shopping, housework, finances, food prep, telephone, transportation , medication admin. Exam & Diagnostic Data Last 24 Hrs of Vital Signs/I&O Vital Signs Date Time Temp Pulse Resp B/P Pulse O2 O2 Flow FiO2 Ox Delivery Rate 02/06 1600 97.7 74 12 122/62 96 Room Air 02/06 0800 98.6 70 16 132/70 97 Room Air 02/06 0800 97 Room Air 02/06 0000 97.2 66 12 118/78 97 Room Air Room Air 02/054 96 Room Air Room Air 02/05 2054 97.3 63 16 99/55 96 Room Air 02/05 2051 63 16 99/58 96 Room Air 04/10 1943 62 16 105/63 97 Room Air 02/05 1856 63 89/54 02/05 1841 62 103/56 02/05 1834 60 98/58 97 Room Air 02/05 1805 70 84/55 Intake & Output 02/06 1600 02/06 0800 02/06 0000 Intake Total 844 49 6547 Output Total 1500 1300 300 Balance -920 -1260 8700 Intake, IV 0 9000 Intake, Oral 580 40 Number 2 1 0 Bowel Movements Output, Urine 1500 1300 300 Patient 242 lb Weight Physical Exam General Appearance: no apparent distress Neck: normal inspection Respiratory: lungs clear Cardiovascular: regular rate/rhythm Gastrointestinal: soft, non-tender Extremities: no edema Labs/Obie Results: Laboratory Tests 02/06 02/06 02/06 02/05 0330 0330 0330 2141 Chemistry Sodium (137 - 145 mmol/L) 141 Potassium (3.5 - 5.1 mmol/L) 4.2 Chloride (98 - 107 mmol/L) 112 H Carbon Dioxide (22 - 30 mmol/L) 21 L Anion Gap (5 - 16) 8 BUN (9 - 20 mg/dL) 10 Creatinine (0.7 - 1.2 mg/dL) 0.9 Estimated GFR (>60 ml/min) > 60 Glucose (65 - 99 mg/dL) 83 Lactic Acid (0.7 - 2.1 mmol/L) 0.6 L 0.6 L Calcium (8.4 - 10.2 mg/dL) 7.3 L Phosphorus (2.5 - 4.5 mg/dL) 2.8 Magnesium (1.6 - 2.3 mg/dL) 1.7 Total Bilirubin (0.2 - 1.3 mg/dL) 0.6 AST (17 - 59 U/L) 21 ALT (21 - 72 U/L) 36 Troponin I (<0.11 ng/ml) 0.02 Albumin (3.5 - 5.0 g/dL) 2.7 L Hematology CBC w Diff NO MAN DIFF REQ WBC (4.8 - 10.8 /CUMM) 6.7 RBC (4.70 - 6.10 /CUMM) 3.86 L Hgb (14.0 - 18.0 G/DL) 11.8 L Hct (42 - 52 %) 35.4 L MCV (80.0 - 94.0 FL) 91.9 MCH (27.0 - 31.0 PG) 30.7 RDW (11.5 - 14.5 %) 13.6 Plt Count (130 - 400 /CUMM) 160 MPV (7.4 - 10.4 FL) 8.4 Gran % (42.2 - 75.2 %) 56.6 Lymphocytes % (20.5 - 51.1 %) 35.2 Monocytes % (1.7 - 9.3 %) 5.9 Eosinophils % (0 - 5 %) 2.0 Basophils % (0.0 - 2.0 %) 0.3 Absolute Granulocytes (1.4 - 6.5 /CUMM) 3.8 Absolute Lymphocytes (1.2 - 3.4 /CUMM) 2.3 Absolute Monocytes (0.10 - 0.60 /CUMM) 0.4 Absolute Eosinophils (0.0 - 0.7 /CUMM) 0.1 Absolute Basophils (0.0 - 0.2 /CUMM) 0 PUBS MCHC (33.0 - 37.0 G/DL) 33.4 02/05 02/05 2141 2134 Chemistry Sodium (137 - 145 mmol/L) 138 Potassium (3.5 - 5.1 mmol/L) 4.3 Chloride (98 - 107 mmol/L) 112 H Carbon Dioxide (22 - 30 mmol/L) 19 L Anion Gap (5 - 16) 7 BUN (9 - 20 mg/dL) 12 Creatinine (0.7 - 1.2 mg/dL) 0.9 Estimated GFR (>60 ml/min) > 60 Glucose (65 - 99 mg/dL) 97 Lactic Acid Cancelled Calcium (8.4 - 10.2 mg/dL) 6.7 L Phosphorus (2.5 - 4.5 mg/dL) 3.3 Magnesium (1.6 - 2.3 mg/dL) 1.6 Total Bilirubin (0.2 - 1.3 mg/dL) 0.5 AST (17 - 59 U/L) 27 ALT (21 - 72 U/L) 44 Troponin I (<0.11 ng/ml) < 0.01 Albumin (3.5 - 5.0 g/dL) 2.6 L TSH (0.270 - 4.200 uIU/mL) 0.602 Free T4 (0.64 - 1.79 ng/dL) 0.92 Hematology CBC w Diff NO MAN DIFF REQ WBC (4.8 - 10.8 /CUMM) 4.8 RBC (4.70 - 6.10 /CUMM) 3.80 L Hgb (14.0 - 18.0 G/DL) 11.4 L Hct (42 - 52 %) 34.3 L MCV (80.0 - 94.0 FL) 90.3 MCH (27.0 - 31.0 PG) 30.1 RDW (11.5 - 14.5 %) 13.6 Plt Count (130 - 400 /CUMM) 153 MPV (7.4 - 10.4 FL) 8.0 Gran % (42.2 - 75.2 %) 60.3 Lymphocytes % (20.5 - 51.1 %) 31.4 Monocytes % (1.7 - 9.3 %) 6.6 Eosinophils % (0 - 5 %) 1.3 Basophils % (0.0 - 2.0 %) 0.4 Absolute Granulocytes (1.4 - 6.5 /CUMM) 2.9 Absolute Lymphocytes (1.2 - 3.4 /CUMM) 1.5 Absolute Monocytes (0.10 - 0.60 /CUMM) 0.3 Absolute Eosinophils (0.0 - 0.7 /CUMM) 0.1 Absolute Basophils (0.0 - 0.2 /CUMM) 0 PUBS MCHC (33.0 - 37.0 G/DL) 33.3 02/05 02/05 1931 1625 Chemistry Sodium (137 - 145 mmol/L) 137 Potassium (3.5 - 5.1 mmol/L) 3.8 Chloride (98 - 107 mmol/L) 108 H Carbon Dioxide (22 - 30 mmol/L) 22 Anion Gap (5 - 16) 8 BUN (9 - 20 mg/dL) 14 Creatinine (0.7 - 1.2 mg/dL) 1.1 Estimated GFR (>60 ml/min) > 60 BUN/Creatinine Ratio (7 - 25 %) 12.7 Glucose (65 - 99 mg/dL) 97 Lactic Acid (0.7 - 2.1 mmol/L) 1.9 Calcium (8.4 - 10.2 mg/dL) 7.8 L Total Bilirubin (0.2 - 1.3 mg/dL) 0.5 AST (17 - 59 U/L) 17 ALT (21 - 72 U/L) 38 Alkaline Phosphatase (< 127 U/L) 54 Troponin I (<0.11 ng/ml) < 0.01 Total Protein (6.3 - 8.2 g/dL) 5.6 L Albumin (3.5 - 5.0 g/dL) 2.9 L Globulin (1.9 - 4.2 gm/dL) 2.7 Albumin/Globulin Ratio (1.1 - 2.2 %) 1.1 Cortisol PM Sample (1.7 - 14.1) 15.5 H Coagulation PT (9.4 - 12.5 SEC) 10.4 INR (0.90 - 1.17) 0.99 Hematology CBC w Diff NO MAN DIFF REQ WBC (4.8 - 10.8 /CUMM) 4.4 L RBC (4.70 - 6.10 /CUMM) 3.99 L Hgb (14.0 - 18.0 G/DL) 11.9 L Hct (42 - 52 %) 36.0 L MCV (80.0 - 94.0 FL) 90.2 MCH (27.0 - 31.0 PG) 29.7 RDW (11.5 - 14.5 %) 13.5 Plt Count (130 - 400 /CUMM) 161 MPV (7.4 - 10.4 FL) 7.8 Gran % (42.2 - 75.2 %) 62.8 Lymphocytes % (20.5 - 51.1 %) 25.8 Monocytes % (1.7 - 9.3 %) 8.6 Eosinophils % (0 - 5 %) 2.4 Basophils % (0.0 - 2.0 %) 0.4 Absolute Granulocytes (1.4 - 6.5 /CUMM) 2.8 Absolute Lymphocytes (1.2 - 3.4 /CUMM) 1.1 L Absolute Monocytes (0.10 - 0.60 /CUMM) 0.4 Absolute Eosinophils (0.0 - 0.7 /CUMM) 0.1 Absolute Basophils (0.0 - 0.2 /CUMM) 0 PUBS MCHC (33.0 - 37.0 G/DL) 32.9 L Toxicology Urine Opiates Screen (>2000 NG/ML) < 100.00 Methadone Screen (>300 NG/ML) < 40 Barbiturate Screen (>200 NG/ML) < 60 Ur Phencyclidine Scrn (>25 NG/ML) < 6.00 Amphetamines Screen (>1000 NG/ML) 121 U Benzodiazepines Scrn (>200 NG/ML) < 85 Urine Cocaine Screen (>300 NG/ML) < 50 Urine Cannabis Screen (>50 NG/ML) < 5.00 Serum Alcohol (<10 MG/DL) < 10.0 Urines Urinalysis HEAVY H Urine Color (YEL,AMB,STR) YEL Urine Clarity (CLEAR) CLEAR Urine pH (5.0 - 8.0) 6.0 Ur Specific [place] (1.001 - 1.035) 1.020 Urine Protein (NEG,<30 MG/DL) 100 H Urine Ketones (NEG) NEG Urine Nitrite (NEG) NEG Urine Bilirubin (NEG) NEG Urine Urobilinogen (0.1 - 1.0 EU/dl) 0.2 Ur Leukocyte Esterase (NEG) NEG Ur Microscopic SEDIMENT EXAMINED Urine RBC (0 - 5 /HPF) RARE Urine Bacteria (NEG/NONE) RARE H Hyaline Casts (0/LPF) 15-25 H Urine Hemoglobin (NEG) NEG Urine Glucose (N MG/DL) >=1000 H Assessment/Plan Assessment/Plan 51-year-old gentleman who has a significant past medical history diabetes mellitus complicated with neuropathy on VGO-40, hypertension, obstructive sleep apnea on CPAP, dyslipidemia, chest pain syndrome status post negative cardiac cath 2 times, bipolar disorder and depression. Patient was admitted for hypotension. Diabetes management: 1. Starting Levemir 10 units twice a day; 2. Novolog coverage before meals and Novolog coverage at bedtime--detail see the insulin orders; 3. monitor FSGs; 4. repeat am cortisol. will follow. Inpatient Diabetes Orders Before Each Meal: Bolus Insulin: Novolog < 80 mg/dl: no coverage 80-100 mg/dl: 3 units 101-120 mg/dl: 3 units 121-150 mg/dl: 3 units 151-200 mg/dl: 4 units 201-250 mg/dl: 6 units 251-300 mg/dl: 8 units 301-350 mg/dl: 10 units 351-400 mg/dl: 12 units > 400 mg/dl: 14 units Bedtime: Bolus Insulin: Novolog < 80 mg/dl: no coverage 80-100 mg/dl: no coverage 101-120 mg/dl: no coverage 121-150 mg/dl: no coverage 151-200 mg/dl: no coverage 201-250 mg/dl: 2 units 251-300 mg/dl: 3 units 301-350 mg/dl: 4 units 351-400 mg/dl: 5 units > 400 mg/dl: 6 units Consult Acknowledgment - Thank you for your consult request.
[2017-02-07] VITALS: BP 148/80
[2017-02-07 05:59] LABS: ABSOLUTE BASOPHIL COUNT 0 /CUMM (0.0-0.2); ABSOLUTE EOSINOPHIL COUNT 0.2 /CUMM (0.0-0.7); ABSOLUTE GRANULOCYTE CT 3.3 /CUMM (1.4-6.5); ABSOLUTE MONOCYTE COUNT 0.4 /CUMM (0.10-0.60); BASOPHIL % 0.4 % (0.0-2.0); EOSINOPHIL % 2.8 % (0-5); GRANULOCYTE % 55.9 % (42.2-75.2); HEMATOCRIT 36.7 % (42-52); MEAN CORPUSCULAR HGB 30.6 PG (27.0-31.0); MEAN CORPUSCULAR HGB CONC 33.8 G/DL (33.0-37.0); MEAN CORPUSCULAR VOLUME 90.4 FL (80.0-94.0); MEAN PLATELET VOLUME 8.4 FL (7.4-10.4); PLATELET COUNT 173 /CUMM (130-400); RBC DISTRIBUTION WIDTH 13.3 % (11.5-14.5); RED BLOOD CELL CT 4.06 /CUMM (4.70-6.10); WHITE BLOOD CELL COUNT 5.9 /CUMM (4.8-10.8)
--- NOTE | 2017-02-07 06:46 | PN- Resident CRCU ---
See Addendum Subjective HPI/CRCU Issues: Mr Finley was seen and examined this morning. He is resting comfortably in bed. He reports no acute issues overnight. Patient states that he no longer feels lightheaded, dizzy or reports any vision loss. Patient endorses blurry vision which he states is normal for him when he first gets up in the morning. Patient states that his vision clears over the course of the day. He does state continued somnolence which has been going on for the past 30 days Patient also reports that he would like his Brody discontinued. Patient denies any fever, chills, nausea, vomiting. Objective Vital Signs & I&O Last 8 Hrs of Vitals and I&O: Intake & Output 02/07 0800 Intake Total 800 Output Total 1100 Balance -300 Intake, Oral 800 Number 0 Bowel Movements Output, Urine 1100 Exam General Appearance: well developed/nourished, no apparent distress, alert, awake , comfortable Head: atraumatic, normal appearance Respiratory: normal breath sounds, chest non-tender, no respiratory distress Cardiovascular: regular rate/rhythm Gastrointestinal: normal bowel sounds, soft, non-tender Extremities: normal inspection, no edema Cranial Nerves: normal hearing, normal speech Current Medications: Current Medications Sig/Gallo Start time Last Medication Dose Route Stop Time Status Admin Acetaminophen 650 MG Q6P PRN 02/05 2100 AC PO Atorvastatin Calcium 40 MG 1700 02/06 1700 AC 02/06 PO 1605 Gabapentin 300 MG TID 02/05 2200 AC 02/06 PO 2118 Heparin Sodium 5,000 UNIT Q8 02/05 2200 AC 02/07 (Porcine) [place] 0601 Ibuprofen 800 MG TID PRN 02/05 211 AC PO Insulin Aspart 0 TIDAC/HS 02/06 1700 AC 02/06 SC 2117 Insulin Aspart 0 TIDAC 02/06 0800 DC 02/06 SC 1214 Insulin Detemir 15 UNITS BID 02/06 2200 AC 02/06 SC 211 Insulin Detemir 10 UNITS BID 02/06 1312 DC 02/06 SC 1352 Lamotrigine 175 MG BID 02/05 2200 AC 02/06 PO 2118 Lidocaine 1 ANIRUDH TID PRN 02/05 211 AC TOP Lisinopril 10 MG DAILY 02/07 1000 AC PO Magnesium Oxide 400 MG DAILY 02/06 1155 AC 02/06 PO 1213 Impression/Plan Impression/Problem List Impression: Mr. Finley is a 51-year-old gentleman with past medical history of diabetes mellitus, hypertension, obesity hypoventilation syndrome, obstructive sleep apnea, dyslipidemia, bipolar disorder and depression who presented to the emergency department on 02/05/2017 after having an episode of transient lightheadedness, being unsteady on his feet and experiencing transient vision changes. Patient recently started a new antipsychotic on 01/30/2017: Risperidone 0.25 MG BID. Six Months ago, the patient presented to [facility] Complaning of Chest pain. He was started on Metoprolol During this admission. Problem List: #Hypotension #Diabetes Poorly controlled. Last HbA1C 13.4 #Obesity hypoventilation syndrome #History of mood disorder: depression and bipolar. #History of seizures #Anemia. Right IJ Line Day #2. (consider discontinuing 02/07/2017 if MAP > 65 is maintained , overnight). Discotinued 02/07/2017 Brody day # 2 (consider discontinuing once patient is more active, 02/07/2017). Discotinued 02/07/2017 Respiratory Saturating well 97 % on RA. Not on any supplemental oxygen. Conitinue to monitor. ID Wbc this am:5.9 Repeat CBC on 02/08/2017. Cardiovascular Patient hypotensive likley due to overmedication and or medication interactions. Lactic Acid trended down from 1.9, to 0.6 and 0.6 respetively, ruled out any potential hypoperfusion to organs or end organ damage. If patients MAP < 65, consider Levophed.Current MAP: 91. Central Line was pulled this AM at approximately 10.00 am. Patient so far has not had any complications and has currenlty been hemodynamically stable. Troponins negative, <0.01,<0.01, 0.02. Supplemental fuids can be discontiued. Obtain records from [facility]. We have an echocardiogram ordered for EF assessment. Last echocardiogram done on 12/2014. EF then was 70%. Mild Left ventricular Hypertropy and Trace tricuspid regurgitation. If blood pressure continues to increase, consider beginning ANISHA 10 mg on 2016. This has been increased to ANISHA inhibitor 20 mg from 02/08/2017. Patient will need an outpatient stress test owing to multiple risk factors for CAD. Hematology H/H this am: 11.8 and 35.4-->12.4 and 36.7 This is unusually low for this patient who normally is up at the 15.0 esther. Rule out blood loss anemia. Guiaic all stools. Patient might be a Candidate for an outpatient GI referral ( was previously given a referral to follow up with Dr Blanco) and Colonoscopy. Monitor H/H in AM 02/08/2017. Heme Blood pressure responded well to aggressive fluid hydration. Blood pressure at midnight was 118/78. This morning his blood pressure is: 142/81. AM cortisol sample ordered 02/07/2017. If < 5 ug/dL diagnostic for adrenalcortical disease. AM Cortisol: 8.0 Metabolic This morning, during our clinical encounter, the patient was alert and oriented blood pressure had increased any no longer felt dizzy. Patient did state that he felt vision was slightly blurry. This normally occurs during periods of hypoglycemia. Blood sugar checked shortly thereafter was 99. Formal endocrinology consultation was obtained. Recomendations regarding sliding scale have been implemented. Continue Levemir 15 Units BID BS: 255-->307.-->272-->102 Alimentary Consistent Carbohydrate Two. Neurology Patient is currently prescribed: Risperidone:0.25 BID.Sertraline: 50mg. Both medications, currently on hold while admitted. Anti Psychotic medications are currently on hold. Risperidone has been shown to contribute to orthostatic hypotension. Needs to be used with caution with those who might be prediscposed to hypotension/ bradycardia. Previous records obtained from psychiatry does show that the patient did not feel that his medications were effacacious. We've obtained a formal psychiatry consult to further clarify and recommend any potential medication changes which could be contrary to this patient's clinical picture. Diet: Consistent carbohydrate IVF: off DVT ppx ALPS Code DNR/DNI Problem List: 1. Vertigo 2. Hypotension 3. Poorly controlled diabetes mellitus 4. Diabetes mellitus 5. Bipolar disease, chronic Pain Ratin Pain Location: No Pain Reported Tomorrow's Labs & Rationales: CBC: Monitor H/H ICU Bundle: Monitor Electrolytes Plan DVT/Prophylaxis: pharmacological, early ambulation low risk
--- NOTE | 2017-02-07 07:38 | ECHOCARDIOGRAM REPORT ---
ELINA BARKER Age: 51 : 1965 Gender: M Exam Date: 02/06/2017 11:45 Exam Location: [facility] Ht (in): 64 Wt (lb): 242 BSA: 2.28 BP: 118 / 78 Ordering Physician: HARSHIL DICKINSON MD Referring Physician: HARSHIL DICKINSON MD Technologist: Beryl Harrison Room Number: 111 Indications: HYPOTENSION Rhythm: Sinus Technical Quality: good FINDINGS Left Ventricle Normal left ventricular size, wall thickness and systolic function with no obvious regional wall motion abnormalities. Normal left ventricular diastolic filling pattern for age. The ejection fraction is visually estimated at 60%. Right Ventricle The right ventricle is normal in size and function. Right Atrium The right atrium is normal in size. Left Atrium The left atrium is normal in size. The interatrial septum is intact. Mitral Valve The mitral valve is normal in structure and function. There is no mitral regurgitation. Aortic Valve Structurally normal aortic valve without significant sclerosis or stenosis. There is no aortic regurgitation. Tricuspid Valve The tricuspid valve is normal in structure and function. There is trace tricuspid regurgitation. Pulmonary artery systolic pressure is normal. Pulmonic Valve Structurally normal pulmonic valve. There is no pulmonic regurgitation. Pericardium Normal pericardium without effusion. No pleural effusion. Great Vessels Normal aortic root dimension. The aortic arch and great vessels are well seen and are normal. CONCLUSIONS 1. Normal EF of 60%. 2. Trace tricuspid regurgitation. Duncan Manning M.D. (Electronically Signed) Final Date: 07 February 2017 07:37 MEASUREMENTS (Male / Female) Normal Values 2D ECHO LV Diastolic Diameter PLAX 4.9 cm 4.2 - 5.9 / 3.9 - 5.3 cm LV Systolic Diameter PLAX 3.2 cm 2.1 - 4.0 cm LV Fractional Shortening PLAX 34.7 % 25 - 46 % LV Ejection Fraction 2D Teich 63.7 % IVS Diastolic Thickness 0.7 cm LVPW Diastolic Thickness 1.0 cm LV Relative Wall Thickness 0.3 RV Internal Dim ED PLAX 3.2 cm 1.9 - 3.8 cm LVOT Diameter 2.3 cm Aortic Root Diameter 3.4 cm LA Systolic Diameter LX 3.7 cm 3.0 - 4.0 / 2.7 - 3.8 cm LA Volume 43.0 cm 18 - 58 / 22 - 52 cm Ascending Aorta Diameter 3.3 cm DOPPLER AV Peak Velocity 154.0 cm/s AV Peak Gradient 9.5 mmHg AV Mean Velocity 107.0 cm/s AV Mean Gradient 5.0 mmHg AV Velocity Time Integral 29.8 cm LVOT Peak Velocity 103.0 cm/s LVOT Peak Gradient 4.2 mmHg LVOT Mean Velocity 72.2 cm/s LVOT Mean Gradient 2.0 mmHg LVOT Velocity Time Integral 20.0 cm LVOT Stroke Volume 83.1 cm AV Area Cont Eq vti 2.8 cm AV Area Cont Eq pk 2.8 cm MV Peak Velocity 134.0 cm/s MV Peak Gradient 7.2 mmHg MV Mean Velocity 75.2 cm/s MV Mean Gradient 3.0 mmHg Mitral E Point Velocity 116.0 cm/s Mitral A Point Velocity 82.9 cm/s Mitral E to A Ratio 1.4 MV PHT Velocity 142.0 cm/s MV Deceleration Zavala 731.0 cm/s MV Pressure Half Time 58.3 ms MV Area PHT 3.8 cm MV Deceleration Time 183.0 ms TR Peak Velocity 293.0 cm/s TR Peak Gradient 34.3 mmHg Right Atrial Pressure 5.0 mmHg Pulmonary Artery Systolic Pressu 39.3 mmHg Right Ventricular Systolic Press 39.3 mmHg PV Peak Velocity 79.7 cm/s PV Peak Gradient 2.5 mmHg PV Mean Velocity 52.1 cm/s PV Mean Gradient 1.0 mmHg PV Velocity Time Integral 15.7 cm LV E' Lateral Velocity 12.1 cm/s Mitral E to LV E' Lateral Ratio 9.6 LV E' Septal Velocity 9.0 cm/s Mitral E to LV E' Septal Ratio 12.9
[2017-02-07 08:22] VITALS: BP 158/74
--- NOTE | 2017-02-07 09:31 | PN- CRCU ---
Subjective HPI/Critical Care Issues: The patient is awake and alert. He has not had any further episodes of hypotension. His blood pressure remained stable and is ranging in the low 100s, but has been as high as the 170s. His respiratory status is stable noting he remains on room air. He is afebrile. The patient feels back to his baseline and offers no complaints today. He has been out of bed and has not been lightheaded or off balance. Objective Current Medications: Current Medications Sig/Gallo Start time Last Medication Dose Route Stop Time Status Admin Acetaminophen 650 MG Q6P PRN 02/05 2100 AC PO Atorvastatin Calcium 40 MG 1700 02/06 1700 AC 02/06 PO 1605 Gabapentin 300 MG TID 02/05 2200 AC 02/06 PO 2118 Heparin Sodium 5,000 UNIT Q8 02/05 2200 AC 02/07 (Porcine) SC 0601 Ibuprofen 800 MG TID PRN 02/05 211 AC PO Insulin Aspart 0 TIDAC/HS 02/06 1700 AC 02/07 SC 0803 Insulin Aspart 0 TIDAC 02/06 0800 DC 02/06 SC 1214 Insulin Detemir 15 UNITS BID 02/06 2200 AC 02/06 SC 2117 Insulin Detemir 10 UNITS BID 02/06 1312 DC 02/06 SC 1352 Lamotrigine 175 MG BID 02/05 220 AC 02/06 PO 2118 Lidocaine 1 ANIRUDH TID PRN 02/05 2115 AC TOP Lisinopril 10 MG DAILY 02/07 1000 AC PO Magnesium Oxide 400 MG DAILY 02/06 1155 AC 02/06 PO 1213 Vital Signs & I&O Last 24 Hrs of Vitals and I&O: Vital Signs Date Time Temp Pulse Resp B/P Pulse O2 O2 Flow FiO2 Ox Delivery Rate 02/07 0822 99.9 73 16 158/74 97 Room Air 02/07 0000 97.6 66 16 148/80 95 Room Air Room Air 02/06 1600 97.7 74 12 122/62 96 Room Air Intake & Output 02/07 1600 02/07 0800 02/07 0000 Intake Total 800 1920 Output Total 1100 3850 Balance -300 -1930 Intake, Oral 800 1920 Number 0 0 Bowel Movements Output, Urine 1100 3850 Physical Exam General Appearance: no apparent distress, alert, awake, obese Head: atraumatic, normal appearance Respiratory: normal breath sounds, chest non-tender, no respiratory distress Cardiovascular: regular rate/rhythm Gastrointestinal: normal bowel sounds, soft, non-tender, distention Back: normal range of motion Extremities: normal inspection, no edema, pelvis stable Results Last 24 Hrs of Lab Results: Laboratory Tests 02/07/17 0415: Anion Gap 7, Estimated GFR > 60, Glucose 102 H, Calcium 8.6, Phosphorus 2.9, Magnesium 2.0, Total Bilirubin 0.6, AST 16 L, ALT 37, Albumin 2.8 L, Cortisol AM Sample 8.0, CBC w Diff NO MAN DIFF REQ, RBC 4.06 L, MCV 90.4, MCH 30.6, RDW 13.3, MPV 8.4, Gran % 55.9, Lymphocytes % 34.3, Monocytes % 6.6, Eosinophils % 2.8, Basophils % 0.4, Absolute Granulocytes 3.3, Absolute Lymphocytes 2.0, Absolute Monocytes 0.4, Absolute Eosinophils 0.2, Absolute Basophils 0, PUBS MCHC 33.8 Diagnostic Data ECHO Findings: 1. Normal EF of 60%. 2. Trace tricuspid regurgitation. Impression/Plan Impression/Plan Impression/Plan: 1. Hypotension, resolved, thought to be related to metoprolol. 2. Insulin-dependent diabetes. 3. Mild anemia without history of bleeding. 4. History of obesity hypoventilation syndrome and JOANNE with CPAP intolerance. 5. History of chest pain syndrome status post negative cardiac catheterization twice. 6. History of dyslipidemia. 7. Severe bipolar disorder and depression. 8. History of seizures, on lamotrigine. Recommendations: * Discontinue Brody catheter. * Blood pressure control and beta ina management as per cardiology. Appreciate input. * Continue Levemir and NovoLog as per endocrinology. We'll continue to monitor FSG's. * Psychiatry consult called regarding input on psychiatric medications. * Increase activity, out of bed to chair. * Downgrade to Angie's List if okay with cardiology. * I will schedule the patient for an outpatient polysomnography for treatment of his obstructive sleep apnea. He is agreeable to proceed with testing.
--- NOTE | 2017-02-07 10:04 | PN- Diabetes ---
Assessment/Plan Assessment: 51-year-old gentleman who has a significant past medical history diabetes mellitus complicated with neuropathy on VGO-40, hypertension, obstructive sleep apnea on CPAP, dyslipidemia, chest pain syndrome status post negative cardiac cath 2 times, bipolar disorder and depression. Patient was admitted for hypotension. Hypotension resolved. He was put on Levemir 15 units twice a day, Novolog coverage before meals and Novolog coverage at bedtime. His FSGs were 307, 272 and 102. Repeat am cortisol is 8.0. But his albumin level is only 2.8. The suboptimal am cortisol level could be due to low albumin. Plan: continue the current insulin regimen for now; monitor FSGs; will follow. Subjective Subjective: He feels better this morning. Objective Last 24 Hrs of Vital Signs/I&O Vital Signs Date Time Temp Pulse Resp B/P Pulse O2 O2 Flow FiO2 Ox Delivery Rate 02/07 08 99.9 73 16 158/74 97 Room Air 02/07 0000 97.6 66 16 148/80 95 Room Air Room Air 02/06 1600 97.7 74 12 122/62 96 Room Air Intake & Output 02/07 1600 02/07 0800 02/07 0000 Intake Total 800 1920 Output Total 1100 3850 Balance -300 -1930 Intake, Oral 800 1920 Number 0 0 Bowel Movements Output, Urine 1100 3850 Findings Pertinent Lab/Obie Results: Laboratory Tests 02/07 0415 Chemistry Sodium (137 - 145 mmol/L) 141 Potassium (3.5 - 5.1 mmol/L) 3.9 Chloride (98 - 107 mmol/L) 108 H Carbon Dioxide (22 - 30 mmol/L) 26 Anion Gap (5 - 16) 7 BUN (9 - 20 mg/dL) 10 Creatinine (0.7 - 1.2 mg/dL) 0.8 Estimated GFR (>60 ml/min) > 60 Glucose (65 - 99 mg/dL) 102 H Calcium (8.4 - 10.2 mg/dL) 8.6 Phosphorus (2.5 - 4.5 mg/dL) 2.9 Magnesium (1.6 - 2.3 mg/dL) 2.0 Total Bilirubin (0.2 - 1.3 mg/dL) 0.6 AST (17 - 59 U/L) 16 L ALT (21 - 72 U/L) 37 Albumin (3.5 - 5.0 g/dL) 2.8 L Cortisol AM Sample (4.46 - 22.7 ug/dL) 8.0 Hematology CBC w Diff NO MAN DIFF REQ WBC (4.8 - 10.8 /CUMM) 5.9 RBC (4.70 - 6.10 /CUMM) 4.06 L Hgb (14.0 - 18.0 G/DL) 12.4 L Hct (42 - 52 %) 36.7 L MCV (80.0 - 94.0 FL) 90.4 MCH (27.0 - 31.0 PG) 30.6 RDW (11.5 - 14.5 %) 13.3 Plt Count (130 - 400 /CUMM) 173 MPV (7.4 - 10.4 FL) 8.4 Gran % (42.2 - 75.2 %) 55.9 Lymphocytes % (20.5 - 51.1 %) 34.3 Monocytes % (1.7 - 9.3 %) 6.6 Eosinophils % (0 - 5 %) 2.8 Basophils % (0.0 - 2.0 %) 0.4 Absolute Granulocytes (1.4 - 6.5 /CUMM) 3.3 Absolute Lymphocytes (1.2 - 3.4 /CUMM) 2.0 Absolute Monocytes (0.10 - 0.60 /CUMM) 0.4 Absolute Eosinophils (0.0 - 0.7 /CUMM) 0.2 Absolute Basophils (0.0 - 0.2 /CUMM) 0 PUBS MCHC (33.0 - 37.0 G/DL) 33.8
--- NOTE | 2017-02-07 14:10 | PN- Cardiology ---
Subjective Subjective: * Patient feels well without chest discomfort, shortness of breath, lightheadedess or palpitations. * Mild hypertension today. * sinus rhythm Objective Vital Signs and I&Os Vital Signs Date Time Temp Pulse Resp B/P Pulse O2 O2 Flow FiO2 Ox Delivery Rate 02/07 0822 99.9 73 16 158/74 97 Room Air 02/07 0000 97.6 66 16 148/80 95 Room Air Room Air 02/06 1600 97.7 74 12 122/62 96 Room Air Intake & Output 02/07 0802/07 0000 02/06 1600 02/06 0000 Intake Total 800 1920 584 49 2169 Output Total 1100 3850 1500 1300 300 Balance -300 -1930 -920 -1260 8700 Intake, IV 0 9000 Intake, Oral 800 1920 580 40 Number 0 0 2 1 0 Bowel Movements Output, Urine 1100 3850 1500 1300 300 Patient 242 lb Weight Physical Exam: General: WD/ WN male in NAD; alert and oriented x 3 Neck: no JVD, no carotid bruit Heart: RRR w/o murmur lungs: clear bilaterally Extremities: no edema Assessment/Plan Assessment/Plan * This patient is doing better with the discontinuation of his Metoprolol. This drug may also exacerbate the patient's depression. I would not be inclined to restart this medication unless there is a clear indication for it. We will pursue an outpatient stress test but there are no symptoms of ischemia at this point in time. * Hypertension. Increased Lisinopril to 20mg daily. * Okay for telemetry. Continue telemetry? Yes
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
[2017-02-07 16:00] VITALS: BP 150/70
[2017-02-08 00:43] VITALS: BP 146/86
--- NOTE | 2017-02-08 07:32 | PN- Housestaff ---
See Addendum Subjective Follow-up For: Bipolar disorder with history of suicide attempts Hypotension Insulin-dependent diabetes mellitus Tele-Events Since Last Visit: Sinus rhythm HR 60-70 First degree AV block IA interval 0.22 Subjective: No acute events overnight. Patient seen and examined this morning. He feels well and has no complaints. His mood is OK and he denies suicidal or homicidal ideation. He reports slight dizziness with positional changes but has been ambulating without difficulty. His appetite is good. He denies chest pain, palpitations or shortness of breath. Review of Systems Constitutional: Reports: see HPI. Objective Last 24 Hrs of Vital Signs/I&O Vital Signs Date Time Temp Pulse Resp B/P Pulse O2 O2 Flow FiO2 Ox Delivery Rate 02/08 0944 76 160/88 02/08 0800 98.2 76 20 160/88 97 Room Air 02/08 0043 98.9 73 20 146/86 96 Room Air 02/07 1600 97.5 74 18 150/70 97 Room Air Intake & Output 02/08 1600 02/08 0800 02/08 0000 Intake Total 480 350 Output Total 1860 Balance 480 -1510 Intake, Oral 480 350 Output, Urine 1860 Physical Exam General Appearance: Alert, Oriented X3, No Acute Distress HEENT: Atraumatic, Mucous Membr. moist/pink Neck: Supple Cardiovascular: Regular Rate, Normal S1, Normal S2, No Murmurs, Gallops, Rubs Lungs: Clear to Auscultation Abdomen: Soft, No Tenderness, Positive Bowel Sounds Extremities: No Clubbing, No Cyanosis, No Edema Current Medications: Current Medications Sig/Gallo Start time Last Medication Dose Route Stop Time Status Admin Acetaminophen 650 MG Q6P PRN 02/05 2100 AC PO Atorvastatin Calcium 40 MG 1700 02/06 1700 AC 02/07 PO 1610 Gabapentin 300 MG TID 02/05 2200 AC 02/08 PO 0944 Heparin Sodium 5,000 UNIT Q8 02/05 220 AC 02/08 (Porcine) SC 0633 Ibuprofen 800 MG TID PRN 02/05 2115 AC 02/08 PO 0746 Insulin Aspart 0 TIDAC/HS 02/06 1700 AC 02/07 SC 2046 Insulin Detemir 12 UNITS BID 02/08 1000 AC 02/08 SC 0944 Insulin Detemir 15 UNITS BID 02/06 2200 DC 02/07 SC 2310 Lamotrigine 175 MG BID 02/05 2200 AC 02/08 PO 0944 Lidocaine 1 ANIRUDH TID PRN 02/05 2115 AC TOP Lisinopril 20 MG DAILY 02/08 1000 AC 02/08 PO 0944 Lisinopril 10 MG DAILY 02/07 1000 DC 02/07 PO 0935 Magnesium Oxide 400 MG DAILY 02/06 1155 AC 02/08 PO 0944 Assessment/Plan Assessment: 51 y/o M with PMHx of bipolar disorder with multiple suicide attempts, HTN and IDDM who was admitted to the ICU for hypotension requiring aggressive IVF hydration without pressor therapy. #Bipolar disorder: History of severe bipolar disorder with multiple suicide attempts. Although patient currently denies suicidal ideation, per psych notes he had suicidal ideation on 01/22/17. Hypotensive episode raises concern that patient may have overdosed on psychiatric medications, unclear whether intentional or unintentional. Follows with Care in [place]. * Psych following. Appreciate their recs. * Continue gabapentin 300 mg PO TID and lamotrigine 175 mg PO BID. * Will make final decision with input from psych regarding whether patient will be transferred to [facility] or discharged home with close psych follow up and visiting nurse to ensure medication adherence. #IDDM: Blood sugars have been running low, 66 this AM. * Endocrinology following. Appreciate their recs. * Decrease Levemir to 12 units SQ BID. * Discharge on VGO-20 with bolus of 4-8 units of insulin before meals according to carbohydrate intake. #Hypotension: Resolved. BP 140-160/80s. Suspect that patient may have overdosed on psychiatric medications, unclear whether intentional or unintentional. * Discontinue telemetry monitoring. * Continue lisinopril 20 mg PO daily. Diet: Consistent Carbohydrate 2 DVT PPx: HSQ and ALPs CODE: FULL Problem List: 1. Bipolar disorder 2. History of suicidal ideation 3. Hypotension 4. IDDM (insulin dependent diabetes mellitus) Pain Ratin Pain Location: N/A Pain Goal: Remain pain free Pain Plan: Gabapentin 300 mg PO TID Lidocaine patch Motrin 800 mg PO TID PRN Tomorrow's Labs & Rationales: None Discharge Plan Anticipated Discharge (Day): tomorrow
[2017-02-08 08:00] VITALS: BP 160/88
--- NOTE | 2017-02-08 08:58 | PN- Diabetes ---
Assessment/Plan Assessment: 51-year-old gentleman who has a significant past medical history diabetes mellitus complicated with neuropathy on VGO-40, hypertension, obstructive sleep apnea on CPAP, dyslipidemia, chest pain syndrome status post negative cardiac cath 2 times, bipolar disorder and depression. Patient was admitted for hypotension. Hypotension resolved. Repeat am cortisol is 8.0. But his albumin level is only 2.8. The suboptimal am cortisol level could be due to low albumin. He was put on Levemir 15 units twice a day, Novolog coverage before meals and Novolog coverage at bedtime. His FSGs were 102, 115, 128, 116, 66. Plan: 1. decrease Levemir to 12 units twice a day; 2. continue the current Novolog coverage before meals and Novolog coverage at bedtime; 3. monitor FSGs; 4. if he is medically stable for discharge, he will be ojn VGO-20 with bolus of insulin 4 -8 units before meals according to meal size ( carbohydrates). I will send in Rx of VGO-20 to his pharmacy. 5. f/u in office after discharge. Subjective Subjective: He feels well this morning. Objective Last 24 Hrs of Vital Signs/I&O Vital Signs Date Time Temp Pulse Resp B/P Pulse O2 O2 Flow FiO2 Ox Delivery Rate 02/08 0800 98.2 76 20 160/88 97 Room Air 02/08 0043 98.9 73 20 146/86 96 Room Air 02/07 1600 97.5 74 18 150/70 97 Room Air Intake & Output 02/08 1600 02/08 0800 02/08 0000 Intake Total 480 350 Output Total 1860 Balance 480 -1510 Intake, Oral 480 350 Output, Urine 1860
[2017-02-08 11:00] VITALS: BP 130/70
--- NOTE | 2017-02-08 12:49 | PN- Psychiatry ---
Assessment/Plan Impression: Pt is a 51-year-old male being seen in the hospital for hypotension. As per history he has made suicidal attempts, including at least 2 attempts by hanging. States that he has constant suicidal ideation, often scanning a room to see if there are objects with which he could kill himself. However he denies suicidal intention, or plan. 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 Patient stated that he had made a deal with his daughter, that he would not kill himself. States that his daughter and his sons are central to his life. I spoke with his brother, Alfredito Finley, with whom the patient lives. His brother acknowledges that the patient has a history of suicidal attempts, but states that his brother has not expressed any suicidal plan or intention for at least the past 2 years. The brother does not feel that the patient is at any danger of harming himself, and he will be happy to have the patient return home. Patient's brother states that the patient often sleeps through the day, working until the early hours of the morning. Brother says he is concerned that the patient does not take his medications in a consistent manner, or as prescribed. Patient lives with a brother, the brother's and 2 teenage children. I also spoke with the patient's outpatient provider, Sarah White APRN, at [facility]. This case was discussed at [facility] located [facility] this morning, and there is some concerned that the patient's hypotension may have been caused by not taking medications as prescribed, either intentionally or unintentionally. Depression:5/10; Anxiety:0/10 (with 10 the worst.) Denies suicidal ideation, homicidal ideation, auditory hallucinations, visual hallucinations, paranoid ideation. Patient states and also believes that he will not kill himself. Speech is well articulated, goal-directed, average in rate, volume and tone. Calm and cooperative. Alert and oriented to person, place, time and situation. Logical. Suggestion: After consultation with the patient's brother, an outpatient provider, it is determined at this time that the patient is safe for discharge. Continue medications as prescribed now, patient will follow up appt at [facility] [place] with Sarah White APRN, on Sunday02/13/2017 at 1:20 PM. Suggest visiting nurse on a daily basis for medication adherence. Subjective Subjective: Patient denies suicidal intent or plan. Patient states also believes that he will not kill himself. Objective Last 24 Hrs of Vital Signs/I&O Vital Signs Date Time Temp Pulse Resp B/P Pulse O2 O2 Flow FiO2 Ox Delivery Rate 02/08 0944 76 160/88 02/08 0800 98.2 76 20 160/88 97 Room Air 02/08 0043 98.9 73 20 146/86 96 Room Air 02/07 1600 97.5 74 18 150/70 97 Room Air Intake & Output 02/08 1600 02/08 0800 02/08 0000 Intake Total 480 350 Output Total 1860 Balance 480 -1510 Intake, Oral 480 350 Output, Urine 1860 Current Medications: Current Medications Sig/Gallo Start time Last Medication Dose Route Stop Time Status Admin Acetaminophen 650 MG Q6P PRN 02/05 2100 AC 02/08 PO 1132 Atorvastatin Calcium 40 MG 1700 02/06 1700 AC 02/07 PO 1610 Gabapentin 300 MG TID 02/05 2200 AC 02/08 PO 0944 Heparin Sodium 5,000 UNIT Q8 02/05 2200 AC 02/08 (Porcine) SC 0633 Ibuprofen 800 MG TID PRN 02/05 2115 AC 02/08 PO 0746 Insulin Aspart 0 TIDAC/HS 02/06 1700 AC 02/07 SC 2046 Insulin Detemir 12 UNITS BID 02/08 1000 AC 02/08 SC 0944 Insulin Detemir 15 UNITS BID 02/06 2200 DC 02/07 SC 2310 Lamotrigine 175 MG BID 02/05 2200 AC 02/08 PO 0944 Lidocaine 1 ANIRUDH TID PRN 02/055 AC TOP Lisinopril 20 MG DAILY 02/08 1000 AC 02/08 PO 0944 Lisinopril 10 MG DAILY 02/07 1000 DC 02/07 PO 0935 Magnesium Oxide 400 MG DAILY 02/06 1155 AC 02/08 PO 0944 Potassium Chloride 10 MEQ ONCE ONE 02/08 1145 CAN PO 02/08 1146
[2017-02-08 15:30] VITALS: BP 138/78
--- NOTE | 2017-02-08 19:48 | Incdntl Nt Psy ---
Incidental Note Notation: At this time the patient is considering a voluntary admission to [facility]. He requested time to speak about this with his son this evening. Medical staff, including Dr. Vera, is concerned that the patient may have either voluntarily or involuntarily taken medications which caused hypotension. Collateral information from the nurse practitioner at [facility] is that staff at [facility] are also concerned that the patient may have overdosed causing potentially fatal hypotension. The patient is denying suicidal intent, or plan to harm himself, or anyone else. We believe that the patient is not an imminent danger to himself at this time. We do not believe that we have grounds on which to keep the patient in the hospital on an involuntary basis. Patient has follow-up next Sunday at [facility] with his psychiatric practitioner. Patient and his family should be informed that should the patient have recurrence of suicidal plan or intent to harm, he should contact 911 immediately , and present to the closest emergency department. We're also suggesting that the patient be provided with daily visiting nurse service, with his medications in a lockbox, for help with medication adherence. During today's phone call with the patient's brother, with whom the patient lives, his brother stated that he did not believe that the patient was a danger to himself. The brother also agreed that daily visiting nurse service would be welcome and helpful for medication adherence. Patient will be reevaluated tomorrow morning, and will again be offered voluntary admission to inpatient psychiatry.
--- NOTE | 2017-02-08 21:07 | PN- Cardiology ---
Subjective Subjective: * No chest discomfort, shortness of breath or lightheadedness. Patient does admit to issues with depression but is upset by any suggestion that this current admission was related to an intentional overdosed rather than having been overprescribed medications. * sinus rhythm Objective Vital Signs and I&Os Vital Signs Date Time Temp Pulse Resp B/P Pulse O2 O2 Flow FiO2 Ox Delivery Rate 02/08 1530 97.9 74 20 138/78 94 Room Air 02/08 1100 130/70 02/08 0944 76 160/88 02/08 0800 98.2 76 20 160/88 97 Room Air 02/08 0043 98.9 73 20 146/86 96 Room Air Intake & Output 02/08 1600 02/08 0800 02/08 0000 02/07 1600 02/07 0800 02/07 0000 Intake Total 480 480 350 618 953 3273 Output Total 500 9013 819 9868 3850 Balance -20 480 -1510 550 -300 -1930 Intake, Oral 480 480 350 931 277 2801 Number 1 0 0 Bowel Movements Output, Urine 500 9117 705 1097 3850 Physical Exam: General: WD/ WN male in NAD; alert and oriented x 3 Neck: no JVD, no carotid bruit Heart: RRR w/o murmur lungs: clear bilaterally Extremities: no edema Assessment/Plan Assessment/Plan * This patient is doing better with the discontinuation of his Metoprolol. This drug may also exacerbate the patient's depression. I would not be inclined to restart this medication unless there is a clear indication for it. We will pursue an outpatient stress test but there are no symptoms of ischemia at this point in time. I doubt that any psychiatric medication was responsible for the patient's hypotension. * Hypertension. Conztinue Lisinopril to 20mg daily. * Okay to d/c telemetry. Continue telemetry? No
[2017-02-08 22:51] VITALS: BP 158/100
--- NOTE | 2017-02-09 07:27 | PN- Housestaff ---
See Addendum Subjective Follow-up For: Bipolar disorder with history of suicide attempts Hypotension Insulin-dependent diabetes mellitus Subjective: No acute events overnight. Patient seen and examined this morning. He is sleeping comfortably in bed. He reports feeling tired. He does not have any complaints. Review of Systems Constitutional: Reports: see HPI. Objective Last 24 Hrs of Vital Signs/I&O Vital Signs Date Time Temp Pulse Resp B/P Pulse O2 O2 Flow FiO2 Ox Delivery Rate 02/09 1037 98.8 70 20 138/90 02/09 0800 98.8 70 20 138/90 95 Room Air 02/08 2251 98.9 71 20 158/100 96 Room Air Intake & Output 02/09 1600 02/09 0800 02/09 0000 Intake Total 240 480 Output Total Balance 240 480 Intake, Oral 240 480 Physical Exam General Appearance: Alert, Oriented X3, No Acute Distress HEENT: Atraumatic, Mucous Membr. moist/pink Cardiovascular: Normal S1, Normal S2, No Murmurs, Gallops, Rubs Lungs: Clear to Auscultation Abdomen: Soft, No Tenderness, Positive Bowel Sounds Extremities: No Clubbing, No Cyanosis, No Edema Current Medications: Current Medications Sig/Gallo Start time Last Medication Dose Route Stop Time Status Admin Acetaminophen 650 MG Q6P PRN 02/05 2100 AC 02/08 PO 1132 Atorvastatin Calcium 40 MG 1700 02/06 1700 AC 02/08 PO 1741 Gabapentin 300 MG TID 02/05 220 AC 02/09 PO 1037 Heparin Sodium 5,000 UNIT Q8 02/05 2200 AC 02/09 (Porcine) SC 0540 Ibuprofen 800 MG TID PRN 02/05 2115 AC 02/08 PO 0746 Insulin Aspart 0 TIDAC/HS 02/06 1700 AC 02/09 SC 1253 Insulin Detemir 12 UNITS BID 02/08 1000 AC 02/09 SC 1036 Lamotrigine 175 MG BID 02/08 2200 AC 02/09 PO 1037 Lidocaine 1 ANIRUDH TID PRN 02/05 2115 AC TOP Lisinopril 20 MG DAILY 02/08 1000 AC 02/09 PO 1037 Magnesium Oxide 400 MG DAILY 02/06 1155 AC 02/09 PO 1037 Assessment/Plan Assessment: 51 y/o M with PMHx of bipolar disorder with multiple suicide attempts, HTN and IDDM who was admitted to the ICU for hypotension requiring aggressive IVF hydration without pressor therapy. #Bipolar disorder: History of severe bipolar disorder with multiple suicide attempts. Although patient currently denies suicidal ideation, per psych notes he had suicidal ideation on 01/22/17. Follows with [facility] in [place]. * Psych following. Appreciate their recs. * Continue gabapentin 300 mg PO TID and lamotrigine 175 mg PO BID. * Admit voluntarily to [facility] today. * Prior to admission risperidone and Seroquel removed from discharge medications. #Hypertension: Hypotension resolved. Currently has intermittent episodes of mild hypertension. There was concern that patient may have overdosed on psychiatric medications, unclear whether intentional or unintentional, however per cardiology it is unlikely that any of the psychiatric medications are responsible for the episode of hypotension. * Continue lisinopril 20 mg PO daily. * Metoprolol removed from discharge medications. * Follow up with cardiology two weeks after discharge. Additional antihypertensive medications will be started as needed at that time upon the stabilization of his psychiatric medication regimen. * Outpatient stress test planned by cardiology. #IDDM: Blood sugars well-controlled. * Endocrinology following. Appreciate their recs. * Continue Levemir 12 units SQ BID. * Continue medium dose Novolog sliding scale TIDAC/QHS. * Eventually discharge on VGO-20 with bolus of 4-8 units of insulin before meals according to carbohydrate intake. Diet: Consistent Carbohydrate 2 DVT PPx: HSQ and ALPs CODE: FULL Problem List: 1. Bipolar disorder 2. History of suicidal ideation 3. IDDM (insulin dependent diabetes mellitus) 4. Hypertension Pain Ratin Pain Location: N/A Pain Goal: Remain pain free Pain Plan: Motrin 800 mg PO TID PRN Tylenol 650 mg PO Q6H PRN for mild pain (scale 1-3) Tomorrow's Labs & Rationales: None
[2017-02-09 08:00] VITALS: BP 138/90
--- NOTE | 2017-02-09 09:11 | PN- Cardiology ---
Subjective Subjective: * Doing well without complaints. Objective Vital Signs and I&Os Vital Signs Date Time Temp Pulse Resp B/P Pulse O2 O2 Flow FiO2 Ox Delivery Rate 02/09 0800 98.8 70 20 138/90 95 Room Air 02/08 2251 98.9 71 20 158/100 96 Room Air 02/08 1530 97.9 74 20 138/78 94 Room Air 02/08 1100 130/70 02/08 0944 76 160/88 Intake & Output 02/09 1600 02/09 0800 02/09 0000 02/08 1600 02/08 0800 02/08 0000 Intake Total 240 480 480 480 350 Output Total 500 1860 Balance 240 480 -20 480 -1510 Intake, Oral 240 480 480 480 350 Number 1 Bowel Movements Output, Urine 500 1860 Physical Exam: General: WD/ WN male in NAD; alert and oriented x 3 Neck: no JVD, no carotid bruit Heart: RRR w/o murmur lungs: clear bilaterally Extremities: no edema Assessment/Plan Assessment/Plan * This patient is doing better with the discontinuation of his Metoprolol. This drug may also exacerbate the patient's depression. I would not be inclined to restart this medication unless there is a clear indication for it. We will pursue an outpatient stress test but there are no symptoms of ischemia at this point in time. I doubt that any psychiatric medication was responsible for the patient's hypotension. * Hypertension. Continue Lisinopril to 20mg daily. He is intermittently mildly hypertensive. We will reassess his need for additional antihypertensive medications as an outpatient after his psychiatric medications have been adjusted. Follow up in the office in two weeks. * Okay to discharge from a cardiac standpoint. Continue telemetry? No
--- NOTE | 2017-02-09 10:22 | Discharge Summary ---
See Addendum Visit Information Visit Dates Admission Date: 02/05/17 Discharge Date: 02/09/2017 Hospital Course Course Attending Physician: CORBY GRAY MD Primary Care Physician: GREGORIO MIRELES,[facility] Course: Mr. Finley is a 51-year-old gentleman with past medical history of diabetes mellitus, hypertension, obesity hypoventilation syndrome, obstructive sleep apnea, dyslipidemia, bipolar disorder and depression who presented to the emergency department on 02/05/2017 after having an episode of transient lightheadedness, being unsteady on his feet and experiencing transient vision changes. Patient stated he was also recently started on Risperidone Seven days before presentation (0.25mg BID) by [facility] . Patient does have history of suicidal ideation as well. She denied any nausea, vomiting, headache, fever, chills. Upon the presentation he was found to be hypotensive and received at least 8 L of normal saline. Vital signs at the time of admission 02/05: BP 84/50. Pulse 66. T: 97.2 Resp 18. SPO2: 95 %. In the ER the patient received aggressive fluid hydration ( 9L). Review of Systems Constitutional: Reports: weakness. Denies: chills, diaphoresis, fever, malaise. Cardiovascular: Denies: chest pain, edema, orthopena, palpitations. Respiratory: Denies: cough, hemoptysis, orthopnea, short of breath. GI: Denies: abdominal pain, bloating, constipation, diarrhea, distention, bowel incontinence. Genitourinary: Denies: discharge, dysuria, frequency, hematuria. Musculoskeletal: Denies: back pain, gout, joint pain, joint swelling. Physical Exam General Appearance: well developed/nourished, no apparent distress, alert, awake , lethargic, obese Head: atraumatic, normal appearance Respiratory: normal breath sounds, chest non-tender, no respiratory distress Cardiovascular: regular rate/rhythm Gastrointestinal: normal bowel sounds, soft, non-tender, distention Back: normal range of motion Extremities: normal inspection, no edema, pelvis stable Neurologic/Psych: awake, alert, oriented x 3, educational interpreter II-XII nml as tested Cranial Nerves: normal hearing, normal speech Last 48 Hrs of Labs/Obie: Laboratory Tests LABS: Anion Gap 8, Estimated GFR > 60, Glucose 83, Calcium 7.3 L, Phosphorus 2.8, Magnesium 1.7, Total Bilirubin 0.6, AST 21, ALT 36, Albumin 2.7 L, CBC w Diff NO MAN DIFF REQ, RBC 3.86 L, MCV 91.9, MCH 30.7, RDW 13.6, MPV 8.4, Gran % 56.6 , Lymphocytes % 35.2, Monocytes % 5.9, Eosinophils % 2.0, Basophils % 0.3, Absolute Granulocytes 3.8, Absolute Lymphocytes 2.3, Absolute Monocytes 0.4, Absolute Eosinophils 0.1, Absolute Basophils 0, PUBS MCHC 33.4 02/05/17 2141: Lactic Acid 0.6 L Anion Gap 7, Estimated GFR > 60, Glucose 97, Calcium 6.7 L, Phosphorus 3.3, Magnesium 1.6, Total Bilirubin 0.5, AST 27, ALT 44, Troponin I < 0.01, Albumin 2.6 L, TSH 0.602, Free T4 0.92, CBC w Diff NO MAN DIFF REQ, RBC 3.80 L, MCV 90.3, MCH 30.1, RDW 13.6, MPV 8.0, Gran % 60.3, Lymphocytes % 31.4, Monocytes % 6.6, Eosinophils % 1.3, Basophils % 0.4, Absolute Granulocytes 2.9, Absolute Lymphocytes 1.5, Absolute Monocytes 0.3, Absolute Eosinophils 0.1, Absolute Basophils 0, PUBS MCHC 33.3 02/05/17 1931: Urine Opiates Screen < 100.00, Methadone Screen < 40, Barbiturate Screen < 60, Ur Phencyclidine Scrn < 6.00, Amphetamines Screen 121, U Benzodiazepines Scrn < 85, Urine Cocaine Screen < 50, Urine Cannabis Screen < 5.00, Urinalysis HEAVY H , Urine Color YEL, Urine Clarity CLEAR, Urine pH 6.0, Ur Specific Lynn 1.020, Urine Protein 100 H, Urine Ketones NEG, Urine Nitrite NEG, Urine Bilirubin NEG, Urine Urobilinogen 0.2, Ur Leukocyte Esterase NEG, Ur Microscopic SEDIMENT EXAMINED, Urine RBC RARE, Urine Bacteria RARE H, Hyaline Casts 15-25 H, Urine Hemoglobin NEG, Urine Glucose >=1000 H 02/05/17 1625: [Image 2] Anion Gap 8, Estimated GFR > 60, BUN/Creatinine Ratio 12.7, Glucose 97, Lactic Acid 1.9, Calcium 7.8 L, Total Bilirubin 0.5, AST 17, ALT 38, Alkaline Phosphatase 54, Troponin I < 0.01, Total Protein 5.6 L, Albumin 2.9 L, Globulin 2.7, Albumin/Globulin Ratio 1.1, Cortisol PM Sample 15.5 H, PT 10.4, INR 0.99, CBC w Diff NO MAN DIFF REQ, RBC 3.99 L, MCV 90.2, MCH 29.7, RDW 13.5, MPV 7.8, Gran % 62.8, Lymphocytes % 25.8, Monocytes % 8.6, Eosinophils % 2.4, Basophils % 0.4, Absolute Granulocytes 2.8, Absolute Lymphocytes 1.1 L, Absolute Monocytes 0.4, Absolute Eosinophils 0.1, Absolute Basophils 0, PUBS MCHC 32.9 L, Serum Alcohol < 10.0 initial chest x-ray and head CT were unremarkable for any acute pathology Assessment/Plan #Sustained Hypotension Patient received 9 L of normal saline and IJ line was placed as well, however he never required any pressors. He was admitted to ICU for closer monitoring. Palpitation was attributed to polypharmacy of psychiatric medications. ACS was ruled out.Cardiology was also onboard. "chest CT:No evidence of pericardial effusion. There is mild thickening of superior major fissure right greater than left with underlying upper lobe atelectasis our resolving old infiltrate . There is no pneumonic consolidation. Minimal Bilateral lower lobe posterior pleural thickening but no pleuraleffusion seen." ECHocardiogram: showed normal EF. Gradually when he became is stable he was transferred out of ICU and we start him back on low-dose lisinopril. Patient should follow-up with coil winder hand in an outpatient setting for a stress test and blood pressure management. #Diabetes Poorly controlled. Last HbA1C 13.4 Am cortisol were within normal limits Endocrine recommended to put him on Levemir twice a day and sliding scale insulin. Blood sugars were controlled. He should follow-up with endocrine in an outpatient setting after discharge #History of mood disorder: depression and bipolar. Patient does have a history of prior suicide ideations. Upon admission Will stop all of his psychiatric medication and gradually restarted Lamictal for him. Upon discussion with the patient he agreed to voluntarily be admitted to Inpatient Psychiatry(for better management of the bipolar disease) after being medically stable. #Anemia. The stable during hospitalization. Patient should follow-up with GI for possible outpatient colonoscopy. Allergies: Coded Allergies: aspirin (PER MED LIST 02/05/17) diphtheria,pertussis (acellular),te (From ADACEL(TDAP ADOLESN/ADULT)(PF)) (PER MED LIST 02/05/17) Significant Procedures: IJL line placement Disposition Summary Disposition Principal Diagnosis: Hypotension due to polypharmacy Additional Diagnosis: Diabetes Bipolar disorder Discharge Disposition: [facility] Discharge Instructions General Discharge Information Code Status: Do Not Resucitate/Intubat Patient's Diet: diabetic Patient's Activity: as tolerated Follow-Up Instructions/Appts: -Please follow-up with your primary care provider within 7 days after discharge. -Please follow-up with your pest technician 7 days after discharge. -Please follow-up with the coil winder hand 7 days after discharge for outpatient stress test -Please follow-up with GI for possible outpatient colonoscopy for your anemia -We have made changes to your home medications, please read the instructions carefully. -Please come back to the hospital if your symptoms got worse. Medications at Discharge Discharge Medications: Stop taking the following medications: Sub-Q Insulin Device, 40 Unit (Vgo 40) 1 EACH EACH Inject into fatty tissue 3 TIMES DAILY BEFORE MEALS Metformin HCl (Glucophage) 1,000 MG TABLET ORAL TWICE DAILY Ketorolac Tromethamine (Ketorolac Tromethamine) 10 MG TABLET ORAL EVERY 4-6 HOURS NEEDED as needed for PAIN Metoprolol Tartrate (Metoprolol Tartrate) 25 MG TABLET ORAL TWICE DAILY Insulin Aspart (Novolog) 100 UNIT/ML VIAL Inject into fatty tissue As Directed Risperidone (Risperdal) 0.25 MG TABLET ORAL As Directed Quetiapine Fumarate (Seroquel) 300 MG TABLET ORAL DAILY Continue taking these medications: Lisinopril (Lisinopril) 20 MG TABLET 1 Tablet ORAL DAILY Qty = 90 Comments: Last Taken:02/09/17 Time:1O:37A.M Atorvastatin Calcium (Lipitor) 40 MG TABLET 1 Tablet ORAL DAILY Comments: Last Taken:02/08/17 Time:5:41P.M Gabapentin (Gabapentin) 300 MG CAPSULE 1 Capsule ORAL THREE TIMES DAILY Qty = 90 Comments: Last Taken02/09/17 Time:10:47A.M Lamotrigine (Lamictal) 25 MG TABLET 175 Milligram ORAL TWICE DAILY Comments: Last Taken:02/09/17 Time:9:44A.M Ibuprofen (Ibuprofen) 800 MG TABLET 1 Tablet ORAL THREE TIMES DAILY as needed for PAIN Comments: Last Taken:02/08/17 Time:7:46A.M Anusol Hc (Anusol-Hc) 25 MG SUPP.RECT 1 Suppository RECTAL TWICE DAILY Qty = 28 Comments: Last Taken:NOT GIVEN THIS ADMISSION Time: Lidocaine HCl (Lidocaine HCl) 2 % JEL..ML. 5 Milliliters On the skin THREE TIMES DAILY as needed for PAIN Qty = 50 Comments: Last Taken:NOT GIVEN THIS ADMISSION Time: Start taking the following new medications: Insulin Detemir (Levemir) 100 UNIT/ML VIAL 12 Units Inject into fatty tissue TWICE DAILY Days = 7 No Refills Comments: Last Taken:02/09/17 Time:10:46A,N Insulin Aspart (Novolog) 100 UNIT/ML VIAL 0 Units Inject into fatty tissue BEFORE MEALS AND AT BEDTIME Days = 28 No Refills Instructions: BEFORE MEALS Blood Insulin Sugar Units <80 0 81-150 6 151-200 8 201-250 10 251-300 12 301-350 14 351-400 16 >400 18 and Call Doctor AT BEDTIME Blood Insulin Sugar Units <80 0 81-100 0 101-200 0 201-250 2 251-300 3 301-350 4 351-400 5 >400 6 and Call Doctor Comments: Last Taken:02/09/17 Time:12:53P.M Copies To: GREGORIO MIRELES,JONELLE; OTTO MIRELES,ILYA; RED MIRELES PhD,TRINO Mindy lightheadedness, being unsteady on his feet and experiencing transient vision changes. Patient recently started a new antipsychotic on 01/30/2017: Risperidone 0.25 MG BID. Six Months ago, the patient presented to [facility] Complaning of Chest pain. He was started on Metoprolol During this admission. Problem List: #Hypotension #Diabetes Poorly controlled. Last HbA1C 13.4 #Obesity hypoventilation syndrome #History of mood disorder: depression and bipolar. #History of seizures #Anemia. Right IJ Line Day #2. (consider discontinuing 02/07/2017 if MAP > 65 is maintained , overnight) Brody day # 2 (consider discontinuing once patient is more active, 02/07/2017) Respiratory Saturating well 97 % on RA. Not on any supplemental oxygen. Conitinue to monitor. ID Wbc this am: 6.7. Repeat CBC on 02/07/2017. Cardiovascular Patient hypotensive likley due to overmedication and or medication interactions. Lactic Acid trended down from 1.9, to 0.6 and 0.6 respetively, ruled out any potential hypoperfusion to organs or end organ damage. If patients MAP < 65, consider Levophed.Current MAP: 91. Troponins negative, <0.01,<0.01, 0.02. Supplemental fuids can be discontiued. Obtain records from [facility]. We have an echocardiogram ordered for EF assessment. Last echocardiogram done on 12/2014. EF then was 70%. Mild Left ventricular Hypertropy and Trace tricuspid regurgitation. If blood pressure continues to increase, consider beginning ANISHA 10 mg on 2016. Patient will need an outpatient stress test owing to multiple risk factors for CAD. Hematology H/H this am: 11.8 and 35.4 This is unusually low for this patient who normally is up at the 15.0 esther. Rule out blood loss anemia. Guiaic all stools. Patient might be a Candidate for an outpatient GI referral ( was previously given a referral to follow up with Dr Blanco) and Colonoscopy. Monitor H/H in AM 02/07/2017. Heme Blood pressure responded well to aggressive fluid hydration. Blood pressure at midnight was 118/78. This morning his blood pressure is: 142/81. AM cortisol sample ordered 02/07/2017. If < 5 ug/dL diagnostic for adrenalcortical disease. Metabolic This morning, during our clinical encounter, the patient was alert and oriented blood pressure had increased any no longer felt dizzy. Patient did state that he felt vision was slightly blurry. This normally occurs during periods of hypoglycemia. Blood sugar checked shortly thereafter was 99. Formal endocrinology consultation was obtained. Recomendations regarding sliding scale have been implemented. BS: 255-->307. Alimentary Consistent Carbohydrate Two. Neurology Patient is currently prescribed: Risperidone:0.25 BID.Sertraline: 50mg. Anti Psychotic medications are currently on hold. Risperidone has been shown to contribute to orthostatic hypotension. Needs to be used with caution with those who might be prediscposed to hypotension/ bradycardia. Previous records obtained from psychiatry does show that the patient did not feel that his medications were effacacious. We've obtained a formal psychiatry consult to further clarify and recommend any potential medication changes which could be contrary to this patient's clinical picture. Diet: Consistent carbohydrate IVF: off DVT ppx ALPS Code DNR/DNI Allergies: Coded Allergies: aspirin (PER MED LIST 02/05/17) diphtheria,pertussis (acellular),te (From ADACEL(TDAP ADOLESN/ADULT)(PF)) (PER MED LIST 02/05/17) Discharge Instructions General Discharge Information Code Status: Do Not Resucitate/Intubat Patient's Diet: diabetic Patient's Activity: as tolerated Follow-Up Instructions/Appts: -Please follow-up with your primary care provider within 7 days after discharge. -Please follow-up with your pest technician 7 days after discharge. -Please follow-up with the coil winder hand 7 days after discharge for outpatient stress test -We have made changes to your home medications, please read the instructions carefully. -Please come back to the hospital if your symptoms got worse. Medications at Discharge Discharge Medications: Stop taking the following medications: Metformin HCl (Glucophage) 1,000 MG TABLET ORAL TWICE DAILY Insulin Aspart (Novolog) 100 UNIT/ML VIAL Inject into fatty tissue As Directed Risperidone (Risperdal) 0.25 MG TABLET ORAL As Directed Quetiapine Fumarate (Seroquel) 300 MG TABLET ORAL DAILY Continue taking these medications: Lisinopril (Lisinopril) 20 MG TABLET 1 Tablet ORAL DAILY Qty = 90 Atorvastatin Calcium (Lipitor) 40 MG TABLET 1 Tablet ORAL DAILY Gabapentin (Gabapentin) 300 MG CAPSULE 1 Capsule ORAL THREE TIMES DAILY Qty = 90 Lamotrigine (Lamictal) 25 MG TABLET 175 Milligram ORAL TWICE DAILY Ketorolac Tromethamine (Ketorolac Tromethamine) 10 MG TABLET 1 Tablet ORAL EVERY 4-6 HOURS NEEDED as needed for PAIN Ibuprofen (Ibuprofen) 800 MG TABLET 1 Tablet ORAL THREE TIMES DAILY as needed for PAIN Anusol Hc (Anusol-Hc) 25 MG SUPP.RECT 1 Suppository RECTAL TWICE DAILY Qty = 28 Lidocaine HCl (Lidocaine HCl) 2 % JEL..ML. 5 Milliliters On the skin THREE TIMES DAILY as needed for PAIN Qty = 50 Metoprolol Tartrate (Metoprolol Tartrate) 25 MG TABLET 1 Tablet ORAL TWICE DAILY The following medications have been changed: Old: Sub-Q Insulin Device, 40 Unit (Vgo 40) (Unknown Strength) EACH 4-8 Unit Inject into fatty tissue 3 TIMES DAILY BEFORE MEALS New: Sub-Q Insulin Device, 20 Unit (Vgo 20) 1 EACH EACH 4-8 Unit SUB-Q 3 TIMES DAILY BEFORE MEALS Qty = 1 Instructions: Administer bolus of insulin 4-8 units before meals. Copies To: GREGORIO MIRELES,REGINE MENJIVAR MD,MARLA MOON MD PhD,TRINO Guillen
--- NOTE | 2017-02-09 10:50 | Patient Discharge Instructions ---
Discharge Instructions General Discharge Information You were seen/treated for: Hypotension due to polypharmacy Special Instructions: -Please follow-up with your primary care provider within 7 days after discharge. -Please follow-up with your academic success coordinator 7 days after discharge. -Please follow-up with the space and missile defense operations 7 days after discharge for outpatient stress test -Please follow-up with GI for possible outpatient colonoscopy for your anemia -We have made changes to your home medications, please read the instructions carefully. -Please come back to the hospital if your symptoms got worse Diet Recommended Diet: Diabetic Activity Full Activity/No Limits: Yes (as tolerated) Acute Coronary Syndrome Inclusion Criteria At DC or during hospital stay patient has or had the following: ACS DIAGNOSIS No Discharge Core Measures Meds if any: Prescribed or Continued at Discharge Meds if any: NOT Prescribed or Continued at Discharge Congestive Heart Failure Inclusion Criteria At DC or during hospital stay patient has or had the following: CHF DIAGNOSIS No Discharge Core Measures Meds if any: Prescribed or Continued at Discharge Meds if any: NOT Prescribed or Continued at Discharge Cerebrovascular accident Inclusion Criteria At DC or during hospital stay patient has or had the following: CVA/TIA Diagnosis No Discharge Core Measures Meds if any: Prescribed or Continued at Discharge Meds if any: NOT Prescribed or Continued at Discharge Venous thromboembolism Inclusion Criteria VTE Diagnosis No VTE Type NONE VTE Confirmed by (Test) NONE Discharge Core Measures - Per Current guidelines, there needs to be overlap - treatment for the first 5 days of Warfarin therapy. - If discharged on Warfarin prior to 5 days of - overlap therapy, the patient will need to be - assessed for post discharge needs including - *Post discharge parental anticoagulation - *Warfarin and/or parental anticoagulation education - *Follow up date to check INR post discharge At least 5 days overlap therapy as Inpatient No Meds if any: Prescribed or Continued at Discharge Note: Overlap Therapy is Warfarin and Anticoagulant Meds if any: NOT Prescribed or Continued at Discharge
--- NOTE | 2017-02-09 11:54 | PN- Diabetes ---
Assessment/Plan Assessment: 51-year-old gentleman who has a significant past medical history diabetes mellitus complicated with neuropathy on VGO-40, hypertension, obstructive sleep apnea on CPAP, dyslipidemia, chest pain syndrome status post negative cardiac cath 2 times, bipolar disorder and depression. Patient was admitted for hypotension. Hypotension resolved. Repeat am cortisol is 8.0. But his albumin level is only 2.8. The suboptimal am cortisol level could be due to low albumin. Levemir was decreased to 12 units twice a day. He is on Novolog coverage before meals and Novolog coverage at bedtime. His FSGs were 121, 181, 140, 238, 109 and 90. Plan: 1. continue Levemir 12 units twice a day; 2. continue the current Novolog coverage before meals and Novolog coverage at bedtime; 3. monitor FSGs; 4. if he is medically stable for discharge, he will be ojn VGO-20 with bolus of insulin 4 -8 units before meals according to meal size ( carbohydrates). I have sent in Rx of VGO-20 to his pharmacy. 5. f/u in office after discharge. Subjective Subjective: He feels well this morning. Objective Last 24 Hrs of Vital Signs/I&O Vital Signs Date Time Temp Pulse Resp B/P Pulse O2 O2 Flow FiO2 Ox Delivery Rate 02/09 1037 98.8 70 20 138/90 02/09 0800 98.8 70 20 138/90 95 Room Air 02/08 2251 98.9 71 20 158/100 96 Room Air 02/08 1530 97.9 74 20 138/78 94 Room Air Intake & Output 02/09 1600 02/09 0800 02/09 0000 Intake Total 240 480 Output Total Balance 240 480 Intake, Oral 240 480
[2017-02-09] MEDS ORDERED: VGO 201 EACH SQ (13:39)
[2017-02-09] MEDS ORDERED: NOVOLOG100 UNIT/2 SC (14:53)
[2017-02-09] MEDS ORDERED: LEVEMIR100 UNIT/1 SC (14:53)
[2017-02-09] MEDS ORDERED: VGO 401 EACH SC (16:10)
[2017-02-09 16:28] VITALS: BP 158/90
== END 2017-02-09 16:49 | DRG 207 ==
LOC: ENRESERVDT → ENRESERVTM → ERH 16:02 → ERHI 19:56 → CRI 19:56 → ENPENDDIS 19:56 → 1NO 19:56 → CRI 21:05 → 1NO 02-08 00:40
PROVIDERS: Physician Assistant Medical; Student in an Organized Health Care Education/Training Program; ADMIT Internal Medicine
DX: I95.2 Hypotension due to drugs (principal); E11.40 Type 2 diabetes mellitus with diabetic neuropathy, unspecified; R56.9 Unspecified convulsions; E11.65 Type 2 diabetes mellitus with hyperglycemia; E66.2 Morbid (severe) obesity with alveolar hypoventilation; Z68.41 Body mass index [BMI] 40.0-44.9, adult; T44.7X5A Adverse effect of beta-adrenoreceptor antagonists, initial encounter; E78.5 Hyperlipidemia, unspecified; F31.9 Bipolar disorder, unspecified; Z79.4 Long term (current) use of insulin; G25.81 Restless legs syndrome; D64.9 Anemia, unspecified; Y92.009 Unspecified place in unspecified non-institutional (private) residence as the place of occurrence of the external cause
CPT/HCPCS: 1NP; CCU; 36415; 80307; 81001; 82436; 87040; 93005; 93010; 93306; 99232; 99233; 99291; G0480; J1644

== ENCOUNTER 2017-02-09 10:50 | Inpatient (IN) | payer OTHER ==
[~2017-02-09] VITALS: Ht 167.6 cm; Wt 102.1 kg
[~2017-02-09 10:50] MED LIST changes: +METOPROLOL TART25 M1 PO; +NOVOLOG100 UNIT/2 SC; +RISPERDAL0.25 M1 PO; +SEROQUEL300 M1 PO
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
[2017-02-09] MEDS ORDERED: VGO 201 EACH SQ (13:39)
[2017-02-09] MEDS ORDERED: LEVEMIR100 UNIT/1 SC (14:53)
[2017-02-09] MEDS ORDERED: NOVOLOG100 UNIT/2 SC (14:53)
[2017-02-09] MEDS ORDERED: VGO 401 EACH SC (16:10)
[2017-02-09 16:55] VITALS: BP 172/88
[2017-02-09 20:01] VITALS: BP 178/88
--- NOTE | 2017-02-09 22:26 | NUR ---
BLOOD GLUCOSE AT 1630 WAS 156, AND AT 2130 WAS 201.
--- NOTE | 2017-02-09 23:16 | NUR ---
PT ADMITTED TO CPS AFTER DC FROM MEDICAL FLOOR POST SUSPECTED INTENTIONAL MEDICATION OVERDOSE IN SUICIDE ATTEMPT. PT DX WITH BIPOLAR D/O. HE ADMITTED TO DEPRESSION AND ANXIETY AND WAS TEARFUL AT TIMES. HE WAS ADAMENT THAT HE DID NOT ATTEMPT SUICIDE BY TAKING OVERDOSE OF MEDICATIONS. HE STATED THAT HE MADE "3 OR 4" SUICIDE ATTEMPTS IN THE PAST BY HANGING AND "I WOULDN'T TAKE PILLS. I DON'T EVEN LIKE TO TAKE WHAT I'M SUPPOSED, NEVERMIND MORE." PT DENIED SI/ALL THOUGHTS OF SELF HARM. HE DID AGREE TO TELL STAFF IF THOUGHTS OCCUR. PT ALSO DENIED PARANOID THOOUGHTS AND ALL HALLUCINATIONS. PT WAS PLEASANT AND COOPERATIVE DURING ASSESSMENT. THOUGHT PROCESS CLEAR AND LOGICAL. PMH INCLUDES DIABETES, HTN, AND SLEEP APNEA. PT DECLINED TO USE CPAP WHILE IN HOSPITAL. NO SOMATIC C/O.
--- NOTE | 2017-02-10 02:02 | PN- Att Addend ---
Attending Addendum Attending Brief Note 51 yo M with h/o poorly controlled diabetes, HTN, JOANNE/OHS intolerant to CPAP, DLD, chest pain syndrome s/p negative cardiac cath x 2, bipolar disorder, previous multiple suicide attempts, was admitted to ICU on February 06 for hypotension 2/2 ?polypharmacy vs. Volume depletion as BP improved with aggressive fluid resuscitation, without pressors. Cortisol and thyroid levels were normal, no source of infection. Given, there is a concern for that patient may have overdosed causing severe hypotension (although patient denies suicidal intent), and he is now transferred to Inpatient psychiatry as a voluntary admission for management of his bipolar disorder and chronic passive SI. Patient thinks, the hypotension was due to his new medication Risperidone that he had started 7 days prior to admission. He currently denies chest pain, dyspnea, lightheadedness, palpitations, nausea, vomiting, diarrhea or urinary symptoms. ROS is otherwise negative. Vital Signs Date Time Temp Pulse Resp B/P Pulse O2 O2 Flow FiO2 Ox Delivery Rate 02/09 2001 96.0 73 178/88 02/09 1655 97.2 80 18 172/88 Physical Exam: General Appearance: well developed/nourished, no apparent distress, alert, awake , lethargic, obese Head: atraumatic, normal appearance Respiratory: clear. Cardiovascular: regular rate/rhythm. Gastrointestinal: normal bowel sounds, soft, non-tender, distention Back: normal range of motion Extremities: no edema. Neurologic/Psych: awake, alert, oriented x 3, checker product design II-XII nml, power equal, sensation intact. Labs (02/07/17): glucose 102, BUN 10, creat 0.8, Na 141, Mag 2.0, albumin 2.8, AST 16, ALT 37, AM cortisol 8.0, H/H 12.4/36.7. Echo (2017): EF 60%, trace TR. Assessment and Plan: 1. Bipolar disorder, chronic passive SI. Plan as per Psych team. Continue lamotrigine and gabapentin. 2. Diabetes. A1c 13.4. Accucheks, levemir 12 units BID, Novolog SS TIDAC/HS. Once he is stable for discharge from Psych standpoint, he will be on VGO-20 with bolus of insulin 4-8 units before meals according to meal size (carbohydrates) as per Endo recs. 3. Hypotension of unclear etiology. Resolved. Patient has been initiated on his BP meds - lisinopril 20 daily. He will need to follow up with Cardiology as outpatient for eventual stress test. 4. HLD. Continue atorvastatin. 5. JOANNE/OHS. Patient refuses CPAP. DVT ppx - low risk, early ambulation.
--- NOTE | 2017-02-10 05:44 | NUR ---
PATIENT SLEPT ALL NIGHT.
[2017-02-10 07:44] VITALS: BP 140/87
--- NOTE | 2017-02-10 10:42 | NUR ---
DR. REBOLLAR MEETING WITH PT AT THIS TIME.
--- NOTE | 2017-02-10 11:31 | PN- Diabetes ---
Assessment/Plan Assessment: The patient states that he feels well. He is presently on 12 units of Levemir twice a day. He is also on sliding scale NovoLog sliding with 6 units for 80- 150. His blood sugars have been in good control. Fingerstick blood sugars yesterday were 109 before breakfast, 90 before lunch, 156 before dinner, and 201 at bedtime. This morning his fingerstick blood sugar before breakfast is 112. Plan: While in the hospital we will continue the present insulin. If the patient goes home he is going to be on the VGO-20. This has been ordered already by Dr. kirkpatrick. The patient knows how to use the V-GO. Subjective Subjective: Feels okay Review of Systems Constitutional: Denies: chills, fever. Cardiovascular: Denies: chest pain. Respiratory: Denies: short of breath. Gastrointestinal: Denies: abdominal pain, nausea, vomiting. Skin: Reports: no symptoms. Objective Last 24 Hrs of Vital Signs/I&O Vital Signs Date Time Temp Pulse Resp B/P Pulse O2 O2 Flow FiO2 Ox Delivery Rate 02/10 826 71 140/87 02/10 0744 97.1 71 140/87 02/09 2001 96.0 73 178/88 02/09 1655 97.2 80 18 172/88 Intake & Output 02/10 0802/10 0000 Intake Total Output Total Balance Patient 225 lb Weight Vital Signs Date Time Temp Pulse Resp B/P Pulse O2 O2 Flow FiO2 Ox Delivery Rate 02/10 826 71 140/87 02/10 0744 97.1 71 140/87 02/09 2001 96.0 73 178/88 02/09 1655 97.2 80 18 172/88 Intake & Output 02/10 0800 02/10 0000 Intake Total Output Total Balance Patient 225 lb Weight Physical Exam General Appearance: alert, awake, comfortable Head: normal appearance Respiratory: normal breath sounds Cardiovascular: regular rate/rhythm Abdomen: normal bowel sounds Extremities: normal inspection Current Medications: Current Medications Sig/Gallo Start time Last Medication Dose Route Stop Time Status Admin Acetaminophen 650 MG Q6P PRN 02/09 1315 AC PO Atorvastatin Calcium 40 MG 1700 02/09 1700 AC 02/09 PO 1951 Gabapentin 300 MG TID 02/09 1600 AC 02/10 PO 0826 Heparin Sodium 5,000 UNIT Q8 02/09 1400 DC (Porcine) SC Ibuprofen 800 MG TIDPRN 02/09 1315 AC PO Insulin Aspart 0 TIDAC/HS 02/09 1700 AC 02/10 SC 0827 Insulin Detemir 12 UNITS BID 02/09 2200 AC 02/10 SC 0831 Lamotrigine 200 MG BID 02/10 1000 AC PO Lamotrigine 175 MG BID 02/09 2200 DC 02/10 PO 0827 Lidocaine 1 ANIRUDH TIDPRN PRN 02/09 1315 AC TOP Lisinopril 20 MG DAILY 02/10 1000 AC 02/10 PO 0826 Magnesium Oxide 400 MG DAILY 02/10 1000 AC 02/10 PO 0826 Melatonin 3 MG AT BEDTIME 02/10 2200 AC PO Trazodone HCl 50 MG AT BEDTIME 02/10 2200 AC PO Trazodone HCl 50 MG AT BEDTIME NEED.. 02/10 1000 AC PO
--- NOTE | 2017-02-10 11:32 | CPS MD/APRN INITIAL ASSE PSYCH ---
Psychiatric Admission Medicare Biller's Note Reviewed: Yes Patient Seen and Examined: Yes Identifying Information: 51yoM with hx of BPAD Chief Complaint: "I had low blood pressure" Reaction to Hospitalization: unable to assess at this time History of Present Illness Onset of Illness: years ago Circumstances Leading to Admission: hypotension, concern for intentional overdose Problem(s) Justifying Need for Admission: ?SI Other HPI: Pt was admitted for hypotension resistent to 8L fuild bolus. He was seen by cardiology who felt that hypotension 2/2 metoprolol and not 2/2 risperidone 0.25mg and seroquel, which he discontinued weeks ago, etiology floated by IM team. Seen by psych consult as IM team concerned about intentional overdose. Pt denied SI or HI, noted worsening depression. Pt offered voluntary admission to [facility] for depression. Pt notes that he feels that he was mislead by admission, " I wish I just went home." He notes that he did not overdose on meds. He has trouble taking meds consistently as he will work until late in the day and then sleep. He denies SI or HI. Last manic episode was few weeks ago. Seen at [facility] as outpatient. Denies SI or HI or psychotic, manic or TRS. Past Psychiatric History Past Diagnosis(es)- if any: Bipolar disorder Past Precipitating Factors- if any: worsening depression - Include inpatient and outpatient treatment Treatment History: care as outpatient History of Suicide Attempts or Gestures SA by hanging multiple times, last 10 years ago Substance Abuse History: Denied Allergies: Coded Allergies: aspirin (PER MED LIST 02/05/17) diphtheria,pertussis (acellular),te (From ADACEL(TDAP ADOLESN/ADULT)(PF)) (PER MED LIST 02/05/17) Home Med List: see H&P for medical admission - Include any medical condition(s) that may - impact the patient's recovery/remission Past Medical History: HTN Past History Medical History Blood Transfusion Hx: No Neurological: seizure, RESTLESS LEG SYNDROME PERIPHERAL NEUROPATHY EENT: cataracts Cardiovascular: hypertension, hyperlipidemia Respiratory: SLEEP APNEA CPAP Gastrointestinal: peptic ulcer disease Hepatic: NONE Renal: NONE Musculoskeletal: ARTHRITIS LEFT SHOULDER (DENIES CURRENT PROBLEM) Psychiatric: bipolar disease, depression, insomnia, Suicide attempts "3-4" TIMES BY HANGING PER PT Endocrine: DM Blood Disorders: NONE Cancer(s): NONE BUSINESS CONTINUITY COORDINATOR/Reproductive: NONE History of MRSA: Yes History of VRE: No History of CDIFF: No Isolation History: Contact Tetanus Vaccine: 11/27/14 Surgical History Surgical History: incision and drainage of right buttocks, and neck abscess, April 2015. 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 - #1 Recognizing dangerous situations. - #2 Coping Skills. - #3 Basic information about quitting. Status of Tobacco Cessation Counseling: N/A B/C NO TOB USE Cessation Med Status: No Tobacco Use last 30d Alcohol Screening - ETOH screen POS if BAL >=80 or Audit-C>= M4/F3 Audit-C Score from Diag Assess: 1 Alcohol Use Screening Results: Pos per Audit C &/or BAL - If ETOH counseling indicated - the following topics are required. - #1 Express concern about the patient's - drinking at unhealthy levels, include informing - of national norms for moderate drinking: - men <= 14 drinks/week, max 4 drinks/occasion - women <= 7 drinks/week, max 3 drinks/occasion - #2 Providing feedback, including linking alcohol to - negative physical effects (liver injury, hypertension) - negative emotional effects (relationship problems and - depression) - negative occupational consequences (reduced work - performance) - #3 Advising the patient to abstain from alcohol or - to drink below national norms for moderate drinking - (as listed above). Status of ETOH Use Counseling: #1, #2 AND #3 Completed. Metabolic Screening - Screen if on a Neuroleptic Medication - Metabolic screening should include: - Blood Pressure, BMI, Glucose or Hgb A1c, & a - Lipid profile from within the past 365 days. Metabolic Screening () Not Applicable, patient not on a neuroleptic. OR () Patient on a neuroleptic(s) . Enter below results for Glucose or Hemoglobin A1C, and lipid panel if obtained during the last 365 days. BMI: 36.300 Blood Pressure: 140/87 Exam and Plan Mental Status Examination Ambulation Status: walking freely, steady Appearance: younger than stated age Attitude towards examiner: cooperative Psychomotor activity: no retardation or agitation Behavior: cooperative, friendly Quality of speech: nl r/r/p/v Affect: slightly irritable Mood: "I'm OK" Suicidal Ideation: denied Homicidal Ideation: denied Hallucinations: denied Paranoid/Delusional Material: denied Difficulties with thought organization: none noted Insight: fair Judgment: fair Orientation: A/O x4 Cognition: grossly intact Memory Function: grossly intact Estimate of intellectual functioning: average Assets/Strengths Patient Identified Assets/Strengths: has family support Impression/Plan Impression and Plan: A/P: Pt with hx of BPAD admitted for hypotensio though 2/2 to metoprolol admitted to psych for worsening depression. No SI or HI. No overdose. - Increase lamictal to 200mg BID - Start trazodone 50mg QHS + PRN - Start melatonin - Monitoring BPs closely - Otherwise continue current medication regimen - Include all active medical diagnosis that require tx DSM 5 Diagnosis(es): Bipolar disorder, most recent episode, depressed - Initial Tx Plan for Active Psych & Medical Conditions Treatment Plan: as above - Factors that would help patient function - in a less restrictive setting. Factors: more socialization
[2017-02-10 12:07] VITALS: BP 141/75
--- NOTE | 2017-02-10 12:44 | NUR ---
PT IS PRESENT WITHIN THE COMMUNITY AND INTERACTS APPROPRIATELY WITH PEERS AND STAFF, MOOD IS STABLE WITH FULL RANGE AFFECT, PLEASANT, COOPERATIVE, CALM AND COMPLAINT. DR. REBOLLAR ALREADY MET WITH THE PT TODAY AND IS FINGER STICKS HAVE BEEN STABLE, ATTENDED GROUPS WHERE HE REPORTED + SLEEP, OK MOOD IS A LITTLE IRRITABLE AND GOAL WAS TO RELAX TODAY. IN FOCUS GROUP PT HAD + INTERACTIONS AND PARTICIPATION, NO ISSUES OR CONCERNS REPORTED OR OBSERVED, VSS.
[2017-02-10 16:03] VITALS: BP 143/79
[2017-02-10 19:49] VITALS: BP 147/78
--- NOTE | 2017-02-10 20:20 | NUR ---
PT IS COMPLIANT, COOPERTIVE, COMPLIANT, APPROPRIATE TO THE UNIT. PRESENT WTIHIN THE COMMUNITY AND INTERACTS WITH PEERS/STAFF MEMBERS. PT IS CURRENTLY INT HE LOUNGE WATCHING TV WITH PEERS. PT OFFERS NO COMPLAINTS AT THIS TIME. VS ARE STABLE AND DENIES ANY SI/HI TO THIS MHW.
--- NOTE | 2017-02-11 06:06 | NUR ---
PATIENT SLEPT ALL NIGHT.
[2017-02-11 08:15] VITALS: BP 146/89
--- NOTE | 2017-02-11 09:41 | CP SOUTH PROGRESS NOTE PSYCH ---
Psych (Inpt) Progress Note Progress Note Include the following elements, when applicable: Involvement in the active treatment of the patient with behavioral observations of the patient and the patient's response to the treatment. Review of the ongoing treatment process in the context of the treatment plan. Indication of how multi-disciplinary staff members are carrying out the treatment plan. Plans for future interventions and recommendations for revision of the treatment plan. Liaison with other physicians/providers. Pt notes that it "took him a while to fall asleep." He feels that mood is "good...no problem" which is an impovement. Hoping that son will visit today. Denies SI or HI. Denies AVHs. Current Medications Sig/Gallo Start time Last Medication Dose Route Stop Time Status Admin Acetaminophen 650 MG Q6P PRN 02/09 1315 AC PO Atorvastatin Calcium 40 MG 1700 02/09 1700 AC 02/10 PO 1714 Gabapentin 300 MG TID 02/09 1600 AC 02/11 PO 0808 Ibuprofen 800 MG TIDPRN 02/09 1315 AC PO Insulin Aspart 0 TIDAC/HS 02/09 1700 AC 02/11 SC 0809 Insulin Detemir 12 UNITS BID 02/09 2200 AC 02/11 SC 0811 Lamotrigine 200 MG BID 02/10 1000 AC 02/11 PO 0808 Lamotrigine 175 MG BID 02/09 2200 DC 02/10 PO 0827 Lidocaine 1 ANIRUDH TIDPRN PRN 02/09 1315 AC TOP Lisinopril 20 MG DAILY 02/10 1000 AC 02/11 PO 0808 Magnesium Oxide 400 MG DAILY 02/10 1000 AC 02/11 PO 0808 Melatonin 3 MG AT BEDTIME 02/10 2200 AC 02/10 PO 2122 Trazodone HCl 100 MG AT BEDTIME 02/11 2200 AC PO Trazodone HCl 50 MG AT BEDTIME 02/10 2200 DC 02/10 PO 2122 Trazodone HCl 50 MG AT BEDTIME NEED.. 02/10 1000 AC PO Vital Signs Date Time Temp Pulse Resp B/P Pulse O2 O2 Flow FiO2 Ox Delivery Rate 02/11 815 96.3 75 146/89 02/11 0808 84 147/78 02/10 1949 97.3 84 147/78 02/10 1603 75 143/79 02/10 1207 71 141/75 A/P: Pt with hx of BPAD admitted for hypotensio though 2/2 to metoprolol admitted to psych for worsening depression. - Continue lamictal to 200mg BID - Increase trazodone 100mg QHS + 50mg PRN - Start melatonin - Monitoring BPs closely, improved - Otherwise continue current medication regimen
[2017-02-11 11:38] VITALS: BP 146/81
--- NOTE | 2017-02-11 13:39 | NUR ---
PT IS PRESENT ON THE UNIT, INTERACTING APPROPRIATELY WITH PEERS AND STAFF, GOAL FOR THE DAY WAS TO RELAX, VSS, BLOOD SUGAR @ 0730 = 153 & @ 1130 = 133 AND RECEIVED INSULIN PER EMAR AND SLIDING SCALE, IS PLEASANT, CALM, COOPERATIVE AND COMPAINT WITH NO ISSUES OR COMPLAINTS REPORTED OR OBSERVED, MOOD STABLE WITH FULL RANGE AFFECT.
[2017-02-11 15:57] VITALS: BP 148/85
[2017-02-11 19:29] VITALS: BP 144/84
--- NOTE | 2017-02-11 19:39 | NUR ---
PT IS STABLE WITH FULL RANGE OF AFFECT, ISOLATIVE AND WITHDRAWN WITH MINIMAL INTERACTIONS WITH PEERS/STAFF. WHEN PT DOES ENGAGE WITH OTHERS HE IS APPROPRIATE, COMLPIANT, COOPERATIVE. VS ARE STABLE AND PT DENIES ANY SI/HI TO THIS MHW.
--- NOTE | 2017-02-12 07:07 | NUR ---
PATIENT SLEPT ALL NIGHT.
[2017-02-12 07:56] VITALS: BP 129/71
--- NOTE | 2017-02-12 08:27 | PN- Diabetes ---
Assessment/Plan Assessment: The patient states that he feels well. He is presently on 12 units of Levemir twice a day. He is also on sliding scale NovoLog sliding with 6 units for 80- 150. His blood sugars have been in good control. His FSGs were 153, 133, 207, 250 and 320. But he had snack last night. He prefers keeping the current insulin regimen for now as he will be careful on diet today. Plan: continue the current insulin regimen for now; monitor FSGs; will follow. Subjective Subjective: He feels well. Objective Last 24 Hrs of Vital Signs/I&O Vital Signs Date Time Temp Pulse Resp B/P Pulse O2 O2 Flow FiO2 Ox Delivery Rate 02/12 0803 98.1 76 18 129/71 02/12 0756 98.1 76 129/71 02/11 1929 96.8 85 144/84 02/11 1557 75 148/85 02/11 1138 73 146/81
[2017-02-12 12:12] VITALS: BP 142/90
--- NOTE | 2017-02-12 13:45 | NUR ---
PT TENDS TO ISOLATE IN HIS ROOM. HE DID NOT ATTEND ANY GROUPS TODAY. WHEN HE IS OUT OF HIS ROOM FOR VITALS OR MEALS HE IS APPROPRIATE AND FRIENDLY. PT IS COMPLIANT WITH HIS MED REGIME AND WHEN ASKED HE DENIED ANY THOUGHTS OF SUICIDE OR SELF HARM
[2017-02-12 16:25] VITALS: BP 148/80
--- NOTE | 2017-02-12 16:39 | CP SOUTH PROGRESS NOTE PSYCH ---
Psych (Inpt) Progress Note Progress Note Include the following elements, when applicable: Involvement in the active treatment of the patient with behavioral observations of the patient and the patient's response to the treatment. Review of the ongoing treatment process in the context of the treatment plan. Indication of how multi-disciplinary staff members are carrying out the treatment plan. Plans for future interventions and recommendations for revision of the treatment plan. Liaison with other physicians/providers. Progress Note: I discussed this patient's progress to date, current mental status, treatment process in the context of the treatment plan, and discharge planning with staff/ team in the daily morning inpatient team meeting. I also met with the patient myself in individual session. S: "This is bologna...I never should have come here." Patient is a 51-year old male with a history of Bipolar disorder who was intitially admitted to medical unit at for a hypotensive episode of unknown cause. During cardiolody consult, it was thought that hypotension was due to metoprolol rather than risperdone and seroquel. Patient was admitted voluntarily to inpatient psychiatry due to concern of possible overdose. On encounter today, patient reported feeling frustrated for being sent here ( inpatient psychiatry). He reported that prior to arrival, he had been seen by his outpatient forest economics professor who noted him to be hypotensive. Without resolve, patient was sent to for further work-up. Patient consistently denied overdosing on any home medications. He denied passive and active suicidal ideation, plans and intent. Reported his last suicide attempt was 10 years ago by hanging. Reported being in treatment at [facility] every Sunday, and reports liking treatment there. He denied acute symptoms of anxiety and depression. Reported his mood as "fine." Denied insomnia, change in appetite, PI, agnes, delusions, HI, and AVH. Patient was agreeable to having his 24-year old son in for a family meeting for further collateral and tx meeting. O: Current Medications Sig/Gallo Start time Last Medication Dose Route Stop Time Status Admin Acetaminophen 650 MG Q6P PRN 02/09 1315 AC PO Atorvastatin Calcium 40 MG 1700 02/09 1700 AC 02/11 PO 1518 Gabapentin 300 MG TID 02/09 1600 AC 02/12 PO 0803 Ibuprofen 800 MG TIDPRN 02/09 1315 AC 02/11 PO 1519 Insulin Aspart 0 TIDAC/HS 02/09 1700 AC 02/12 SC 1204 Insulin Detemir 16 UNITS BID 02/12 1000 DC SC Insulin Detemir 12 UNITS BID 02/12 1000 AC 02/12 SC 1010 Insulin Detemir 12 UNITS BID 02/09 2200 DC 02/11 SC 2124 Lamotrigine 200 MG BID 02/10 1000 AC 02/12 PO 0803 Lidocaine 1 ANIRUDH TIDPRN PRN 02/09 1315 AC TOP Lisinopril 20 MG DAILY 02/10 1000 AC 02/12 PO 0803 Magnesium Oxide 400 MG DAILY 02/10 1000 AC 02/12 PO 0803 Melatonin 3 MG AT BEDTIME 02/10 2200 AC 02/11 PO 2319 Trazodone HCl 100 MG AT BEDTIME 02/11 2200 AC 02/11 PO 2319 Trazodone HCl 50 MG AT BEDTIME NEED.. 02/10 1000 AC PO Vital Signs Date Time Temp Pulse Resp B/P Pulse O2 O2 Flow FiO2 Ox Delivery Rate 02/12 1625 79 148/80 02/12 1212 76 142/90 02/12 0803 98.1 76 18 129/71 02/12 0756 98.1 76 129/71 02/11 1929 96.8 85 144/84 A: Chart, progress notes, labs, FS, VS and medication list were reviewed. Vital signs within normal limits. Lamictal increased from 175mg BID to 200mg BID on for mood stabilization/depression. Pt was A&Ox3. Overall, calm and cooperative behavior. Mood was "fine." Affect mostly constricted with occasional range, non-labile. Speech was normal in rate, tone and volume. Eye contact was appropriate. Anxiety: 0/10 (10 being the worst) . Depression: 2/10 (10 being the worst). Denied feeling hopeless, helpless, worthless, guilty. Denied SI/HI/AVH. No evidence paranoia, delusions, agnes/ hypomania. Reported sleep and appetite were good. He expressed no complaints. Thought process was goal-directed, linear. Thought content was appropriate. Cognition was grossly intact. Patient reported tolerating medications well and denied untoward effects. P: 1. Continue monitoring patient on unit for safety, mood and suicidal ideation. 2. Continue current medications. 3. Schedule family meeting. 4. Dispo psych planning per primary team. 5. Will need outpatient cardiology appointment scheduled upon discharge per H&P.
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
[2017-02-12 19:38] VITALS: BP 142/72
--- NOTE | 2017-02-12 21:28 | NUR ---
PT IS VISIBLE ON UNIT, SOCIAL WITH PEERS AND WATCHING TV IN KITCHEN. COOPERATIVE AND COMPLIANT WITH STAFF. ATTENDED WRAP UP MEETING AND PARTICIPATED. NO COMPLAINTS OR SI REPORTED. PT HAS A STABLE MOOD AND FULL RANGE AFFECT.
--- NOTE | 2017-02-12 22:45 | NUR ---
SPOKE WITH DR BRICEÑO REGARDING MAGNESIUM ORDER/LEVEL. PER DR BRICEÑO, PT SHOULD REMAIN ON PO MAGNESIUM OXIDE AT THIS TIME.
--- NOTE | 2017-02-12 23:02 | NUR ---
[address] CALL [address] BRICEÑO TO DC MAGNESIUM OXIDE MAGNESIUM OXIDE NOT A HOME MED (CONFIRMED BY RECORD REVIEW, PHARMACIST ALYCIA, AND PT HIMSELF. REPEAT MAGNESIUM LEVEL TOMORROW.
--- NOTE | 2017-02-13 06:34 | NUR ---
PT UP X 1. PT APPEARED TO SLEEP.
[2017-02-13 07:50] VITALS: BP 135/78
--- NOTE | 2017-02-13 09:16 | CP SOUTH PROGRESS NOTE PSYCH ---
Psych (Inpt) Progress Note Progress Note Include the following elements, when applicable: Involvement in the active treatment of the patient with behavioral observations of the patient and the patient's response to the treatment. Review of the ongoing treatment process in the context of the treatment plan. Indication of how multi-disciplinary staff members are carrying out the treatment plan. Plans for future interventions and recommendations for revision of the treatment plan. Liaison with other physicians/providers. Progress Note: I discussed this patient's progress to date, current mental status, treatment process in the context of the treatment plan, and discharge planning with staff/ team in the daily morning inpatient team meeting. I also met with the patient myself in individual session. S: "I feel fine...I'm hopeful to go." Patient reported no significant changes in mood since CPS admission. Reports mood as "fine." Attending groups. Looked forward to visit from son last evening who did not show. He reported sleep and appetite were good. Denied passive and active suicidal ideation, plans or intent. Denied homicidal ideation. Expressed confusion for present hospitalization, stating again that he did not overdose on any of his medication leading to hypotensive episode. 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 Broached subject of setting up VNS services for daily medication administration as he had reported difficulty with adherence. Patient was not agreeable to recommendation but was agreeable to having his son or brother oversee his medication administration. Informed patient that prior to discharge we will need to schedule family meeting to review aftercare plans. O: Current Medications Sig/Gallo Start time Last Medication Dose Route Stop Time Status Admin Acetaminophen 650 MG Q6P PRN 02/09 1315 AC PO Atorvastatin Calcium 40 MG 1700 02/09 1700 AC 02/12 PO 1650 Gabapentin 300 MG TID 02/09 1600 AC 02/13 PO 0816 Ibuprofen 800 MG TIDPRN 02/09 1315 AC 02/11 PO 1519 Insulin Aspart 0 TIDAC/HS 02/09 1700 AC 02/13 SC 0818 Insulin Detemir 14 UNITS BID 02/13 1000 AC 02/13 SC 0943 Insulin Detemir 12 UNITS BID 02/12 1000 DC 02/12 SC 2144 Lamotrigine 200 MG BID 02/10 1000 AC 02/13 PO 0815 Lidocaine 1 ANIRUDH TIDPRN PRN 02/09 1315 AC TOP Lisinopril 20 MG DAILY 02/10 1000 AC 02/13 PO 0816 Magnesium Oxide 400 MG DAILY 02/10 1000 DC 02/12 PO 0803 Melatonin 3 MG AT BEDTIME 02/10 2200 AC 02/12 PO 214 Trazodone HCl 100 MG AT BEDTIME 02/11 2200 AC 02/12 PO 214 Trazodone HCl 50 MG AT BEDTIME NEED.. 02/10 1000 AC PO Vital Signs Date Time Temp Pulse Resp B/P Pulse O2 O2 Flow FiO2 Ox Delivery Rate 02/13 08 95.6 75 18 135/78 02/13 0750 95.6 75 135/78 02/12 1938 97.2 85 142/72 02/12 1625 79 148/80 02/12 1212 76 142/90 Laboratory Tests 02/13/17 0633: Magnesium 1.7 A: Chart, progress notes, labs, FS, and medication list were reviewed. Vital signs within normal limits. Serum magnesiums within normal limits. Pt Ox3. Calm and cooperative behavior. Mood remains "fine." Affect full-range, non-labile. Speech was normal in rate, tone and volume. Eye contact was appropriate. Anxiety: 0/10 (10 being the worst). Depression: 1-2/10 (10 being the worst). Denied feeling hopeless, helpless, worthless, guilty. Denied SI/HI/ AVH. No evidence paranoia, delusions, agnes/hypomania. Reported stable sleep and appetite. Thought process was goal-directed, linear. Thought content was appropriate. Cognition was grossly intact. Insight/judgement fair. Tolerating medications well, denied untoward medication effects. Agreeable to continue taking. P: 1. Continue monitoring patient on unit for safety and mood. 2. Continue current medications. 3. Family phone conference today. 4. Will need outpatient cardiology appointment scheduled upon discharge per H&P.
--- NOTE | 2017-02-13 09:27 | PN- Diabetes ---
Assessment/Plan Assessment: The patient states that he feels well. He is presently on 12 units of Levemir twice a day. He is also on sliding scale NovoLog sliding with 6 units for 80- 150. His blood sugars have been in good control. His FSGs were 320, 252, 192, 216 and 199. Plan: 1. increase Levemir to 14 units units twice a day; 2. continue the current Novolog coverage before meals and Novolog coverage at bedtime; 3. monitor FSGs; will follow. Subjective Subjective: He feels okay. Objective Last 24 Hrs of Vital Signs/I&O Vital Signs Date Time Temp Pulse Resp B/P Pulse O2 O2 Flow FiO2 Ox Delivery Rate 02/13 0816 95.6 75 18 135/78 02/13 0750 95.6 75 135/78 02/12 1938 97.2 85 142/72 02/12 1625 79 148/80 02/12 1212 76 142/90 Findings Pertinent Lab/Obie Results: Laboratory Tests 02/13 0633 Chemistry Magnesium (1.6 - 2.3 mg/dL) 1.7
--- NOTE | 2017-02-13 11:42 | NUR ---
PT HAS BEEN VISIBLE IN THE MILIEU THROUGHOUT THE DAY. HIS GOAL TODAY WAS TO WORK TOWARDS BEING RELAXED. IN THE [place] HAS BEEN PLEASANT AND COMPLIANT WITH THE RULES OF THE UNIT. HE HAS BEEN GOING TO GROUPS THROUGHOUT THE DAY, AND INTERACTING POSITIVELY WITH PEERS AND STAFF. PT DENIES THOUGHTS OF HURTING HIMSELF WHEN ASKED.
[2017-02-13 12:22] VITALS: BP 168/95
[2017-02-13 12:25] VITALS: BP 153/91
--- NOTE | 2017-02-13 15:17 | SOCIAL WORKER TX PLAN PSYCH ---
Treatment Plan - Please Document: - Evidence that there is ongoing collaboration between - the patient and the interdisciplinary team, - including the patient's active participation and - responsibility for engaging in the treatment regimen, - and that the treatment plan is individualized and - relevant to the patient's conditions. - Treatment plan should reflect documentation indicating - that all active therapeutic efforts are included. Strengths/Capabilities: Has safety plan with daughter, which he feels has helped. 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 Motivated to treatment, enjoys his group therapy at [facility], which he says he has attended once. He recently began treatment at [facility], and is also looking forward to continuing outpatient treatment with his current HELP DESK SUPERVISOR. Physical Limitations (Interventions): None Patient Identified [facility] Goals: " I want to feel better." Discharge Plan: [facility] Problem/Goals #1 Problem #1: depression Goal (Short Term): Today I will attend 2 groups Today I will identify 2 stressors Today I will identify 2 positive supports Today I will work on recognizing 3 emotions I am feeling Goal (Care Home): Be free of suicidal thoughts/attempts Develop 3 coping skills to deal with depression Identify 3 positive support systems to call in crisis Develop a crisis plan with 3 borges people Identify 2 positive traits per week about myself Identify 2 things I have to look forward to Identify 2 positive people in my life and 1 thing I appreciate about them Interventions: Learn ways to manage depressive symptoms accordingly and identify positive supports to manage life stressors and mood fluctuations. Modalities: Encourage groups, education on depression, provide CBT treatment, family meeting. DSM5/PS Stressors/Medical Prob Diagnosis' (DSM 5, Stressors, Medical): Bipolar disorder, unspecified, with chronic passive suicidal ideation without plan or intent to harm himself at this time. Diabetes mellitus, hypertension, obesity hypoventilation syndrome, obstructive sleep apnea, dyslipidemia. Stressors include unemployment, and remaining on state sex offenders list. Treatment Team - Responsibilities of members of the treatment team include: - Medication Management- MD or HELP DESK SUPERVISOR - Medication Administration and Monitoring- Nurse - Group Therapy- Occupational Therapist - 1:1 Therapy,Disch Planning,family involvement-Crm Specialist
--- NOTE | 2017-02-13 15:19 | SOCIAL WORKER PROG NOTE PSYCH ---
Social Work Progress Note Progress Note Patient presents today with bright mood and affect congruent to mood. Patient reports feeling ready to discharge the hospital and denies any suicidal thoughts or depression today. Patient seen attending groups on the unit throughout the day and interracting appropriately with peers. Patient and this film writer had phone conference with patients brother, Alfredito, who patient resides with. Alfredito offerred no complaints and was in agreement that patient could return home tomorrow. He has agreed to monitor and distribute patients medication temporarily while patient adjusts to returning home and developing a routine for himself. Patient will return to treatment with Care and has appointments in place for next week.
[2017-02-13 15:50] VITALS: BP 144/74
[2017-02-13 20:07] VITALS: BP 148/82
--- NOTE | 2017-02-13 21:29 | NUR ---
PT IS CALM, COOPERATIVE WITH STAFF AND PEERS, AND COMPLIANT WITH UNIT RULES. PT IS OFTEN IN MILIEU, INTERACTING WELL WITH OTHERS. MOOD IS STABLE, AFFECT APPEARS EUTHYMIC TO FULL RNAGE, COMMUNICATION IS ORGANIZED AND APPEARS NORMAL IN ALL RESPECTS, AND APPETITE IS NORMAL. PT DENIES SI AT THIS TIME. BLOOD GLUCOSE AT 1630 WAS 183, AND AT 2130 WAS 287.
--- NOTE | 2017-02-14 03:01 | NUR ---
Slept well, no complaints offered.
[2017-02-14 07:59] VITALS: BP 137/79
[2017-02-14 08:00] VITALS: BP 137/79
--- NOTE | 2017-02-14 08:54 | NUR ---
PT IS SCHEDULED FOR D/C TO [facility] TODAY. HE REPORTS AND DEMONSTRATES IMPROVEMENT IN HIS MOOD AND ABILITY TO FUNCTION. HE DENIES ANY THOUGHTS OF SUICIDE OR SELF HARM. PT IS GIVEN EDUCATION ON MANAGING HIS MOOD D/O AND ON SUICIDE PREVENTION.HE IS CALM AND COOPERATIVE WITH FULL RANGE OF AFFECT
--- NOTE | 2017-02-14 10:48 | SOCIAL WORKER PROG NOTE PSYCH ---
Social Work Progress Note Progress Note Patient to discharge home today. Patient reports feeling safe and ready to return home to his brother house today. Patient denies SI/HI/AH/VH at present. 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 Patient has appointment with Ivon Castillo on 02/19/17 @3PM and Sarah White APRN on @11:20AM. Patient also has appointment at Dr. Valencia's office with Dr. Krysten Wilks APRN on 03/06/17 @9:30AM and Dr. Manning on 03/08/17 @4PM.
[2017-02-14] MEDS ORDERED: ATORVASTATIN CA40 M1 PO (11:23)
[2017-02-14] MEDS ORDERED: LAMICTAL100 M2 PO (11:25)
[2017-02-14] MEDS ORDERED: TRAZODONE HCL100 M1 PO (11:26)
[2017-02-14] MEDS ORDERED: MELATONIN3 M4 PO (11:27)
--- NOTE | 2017-02-14 14:47 | CP SOUTH PROGRESS NOTE PSYCH ---
Psych (Inpt) Progress Note Progress Note Include the following elements, when applicable: Involvement in the active treatment of the patient with behavioral observations of the patient and the patient's response to the treatment. Review of the ongoing treatment process in the context of the treatment plan. Indication of how multi-disciplinary staff members are carrying out the treatment plan. Plans for future interventions and recommendations for revision of the treatment plan. Liaison with other physicians/providers. Progress Note: Case and treatment plan discussed in team meeting. The patient is a 51-year-old white male who was admitted on 02/09/17. He was very hypotensive and there was concern about whether he might have taken an overdose prior to his medical admission. He carries the diagnosis bipolar disorder, depressed. Medication list reviewed. Staff reports that the patient is doing fine. Looking forward to going home. Telephone conference call with brother reportedly went well. Brother will be monitoring patient's medications. Patient will be going outpatient treatment at [facility]. Referral Reportedly refusing IOP. Patient seen at 11:05 AM. He is an ambulatory, bearded white male dressed in T- shirt and jeans, sitting in a chair in no acute distress. He is calm, polite and cooperative. There is no psychomotor agitation or retardation. Speech is normal in volume, rate and tone. Affect is calm and blunted to euthymic. Feels good. Has no complaints. Denies having overdosed with medications prior to admission. Reports brother will be monitoring his medications at home. Reports mood is no problem. Rates sad mood 2/10 and anxiety 2/10. Denies feeling hopeless, helpless or worthless. Feels guilty sometimes for seeing his other kids and not getting to see them more. Denies active and passive suicidal ideation. Denies homicidal ideation. Denies auditory and visual hallucinations. Denies paranoid ideation and magical cope. Insight and judgment are currently good. There is no apparent thought disorder or delusions. Patient is oriented 3 although he does not know the exact date in January 2017. Cognition is grossly intact. Estimate of intellectual functioning is average. Reports sleep has been good with trazodone. Appetite is normal. Energy is described as pretty good today. Tolerating medications well, without complaint. Feels ready and safe for discharge. IMPRESSION: Condition improved. Okay for discharge today to home and brother. Patient plans to follow-up at [facility].
--- NOTE | 2017-02-14 15:03 | DISCHARGE SUMMARY REPORT-PSYCH ---
Visit Information Visit Dates/Diagnosis' Admission Date: 02/09/17 Discharge Date: 02/14/17 Reason for Admission: Concern that the patient could have overdosed as the cause of hypotension. Patient consistently denied overdosing. Psy Discharge Primary Diag: Bipolar d/o, unspecified Psy Discharge Secondary Diag: S/p hypotension Hx seizures Restless leg syndrome Peripheral neuropathy Cataracts Hypertension Hyperlipidemia Sleep apnea Peptic ulcer disease Hx arthritis L shoulder Diabetes mellitus Obesity Hospital Course Significant Lab Findings: Lab AST 16 U/L L 02/07/17 0415 Albumin 2.8 g/dL L 02/07/17 0415 Chloride 108 mmol/L H 02/07/17 0415 Cortisol PM Sample 15.5 H 02/05/17 1625 Glucose 102 mg/dL H 02/07/17 0415 Total Protein 5.6 g/dL L 02/05/17 1625 Hct 36.7 % L 02/07/17 0415 Hgb 12.4 G/DL L 02/07/17 0415 RBC 4.06 /CUMM L 02/07/17 0415 Acetone Level NEGATIVE 02/05/15 0947 Amphetamines Screen 121 NG/ML 02/05/17 193 Barbiturate Screen < 60 NG/ML 02/05/171930 Methadone Screen < 40 NG/ML 02/05/171930 Serum Alcohol < 10.0 MG/DL 02/05/17 1625 U Benzodiazepines Scrn < 85 NG/ML 02/05/17 193 Ur Phencyclidine Scrn < 6.00 NG/ML 02/05/171930 Urine Cannabis Screen < 5.00 NG/ML 02/05/171930 Urine Cocaine Screen < 50 NG/ML 02/05/171930 Urine Opiates Screen < 100.00 NG/ML 02/05/171930 Hyaline Casts 15-25 H 02/05/17 193 Urinalysis HEAVY H 02/05/171930 Urine Bacteria RARE H 02/05/171930 Urine Glucose >=1000 MG/DL H 02/05/171930 Urine Protein 100 MG/DL H 02/05/171930 Course Complications: None. Consultations: The patient was seen by talent rep MIGUEL OCHOA MD for follow up. Followed by Drs. Valencia and Adriano for diabetes care. Please see there notes. Allergies: Coded Allergies: aspirin (PER MED LIST 02/05/17) diphtheria,pertussis (acellular),te (From ADACEL(TDAP ADOLESN/ADULT)(PF)) (PER MED LIST 02/05/17) Hospital Course/TX Response: The patient was monitored on the unit for safety and mood disorder. He participated in multi-modal treatments on the unit. Trazodone and melatonin were added for insomnia. Apparently the patient has been on Seroquel, Risperdal and Zoloft in the past. These were not needed during this hospitalization. The patient has consistently denied having taken an overdose prior to admission. Progress note from date of discharge, 02/14/17: Case and treatment plan discussed in team meeting. The patient is a 51-year-old white male who was admitted on 02/09/17. He was very hypotensive and there was concern about whether he might have taken an overdose prior to his medical admission. He carries the diagnosis bipolar disorder, depressed. Medication list reviewed. Staff reports that the patient is doing fine. Looking forward to going home. Telephone conference call with brother reportedly went well. Brother will be monitoring patient's medications. Patient will be going outpatient treatment at [facility]. Referral Reportedly refusing IOP. Patient seen at 11:05 AM. He is an ambulatory, bearded white male dressed in T- shirt and jeans, sitting in a chair in no acute distress. He is calm, polite and cooperative. There is no psychomotor agitation or retardation. Speech is normal in volume, rate and tone. Affect is calm and blunted to euthymic. Feels good. Has no complaints. Denies having overdosed with medications prior to admission. Reports brother will be monitoring his medications at home. Reports mood is no problem. Rates sad mood 2/10 and anxiety 2/10. Denies feeling hopeless, helpless or worthless. Feels guilty sometimes for seeing his other kids and not getting to see them more. Denies active and passive suicidal ideation. Denies homicidal ideation. Denies auditory and visual hallucinations. Denies paranoid ideation and magical cope. Insight and judgment are currently good. There is no apparent thought disorder or delusions. Patient is oriented 3 although he does not know the exact date in January 2017. Cognition is grossly intact. Estimate of intellectual functioning is average. Reports sleep has been good with trazodone. Appetite is normal. Energy is described as pretty good today. Tolerating medications well, without complaint. Feels ready and safe for discharge. IMPRESSION: Condition improved. Okay for discharge today to home and brother. Patient plans to follow-up at [facility]. Discharge HBIPS - Tobacco Use Treatment Offered Post DC Medications Offered: NA-No Tob Use >30 days Post DC Tobacco Treatment Plan: NA-No Tobacco use >30days - EtOH/Drug Use D/O Treatment Offered Post DC Medications Offered: NA-No EtOH/Drug Use D/O Post DC EtOH/SubAbuse TX Plan: NA-No EtOH/Drug Use D/O Metabolic Screening - Screen if on a Neuroleptic Medication - Metabolic screening should include: - Blood Pressure, BMI, Glucose or Hgb A1c, & a - Lipid profile from within the past 365 days. Metabolic Screening ([x]) Not Applicable, patient not on a neuroleptic. OR () Patient on a neuroleptic(s) . Enter below results for Glucose or Hemoglobin A1C, and lipid panel if obtained during the last 365 days. BMI: 36.300 Blood Pressure: 137/79 Laboratory Results (If applicable): Discharge Instructions General Discharge Information Discharge Medications: Discharge Medications- (Dose, route, freq, indication): Two weeks' supply, no refills, were called to [facility] [phone] for Lipitor, trazodone, Lamictal and melatonin. Novolog insulin through V-GO 20 device for diabetes management. Lamotrigine Dose: ORAL, TWICE DAILY for Qty: 28 Printed (Lamictal) 100 MG 200 Milligram seizures/moods Refills: 0 TABLET Last Taken:02/14/17 Time:0800 Trazodone HCl Dose: ORAL, AT BEDTIME for Qty: 14 Printed (Trazodone HCl) 100 100 Milligram insomnia Refills: 0 MG TABLET Last Taken:02/13/17 Time:2200 Melatonin Dose: ORAL, AT BEDTIME for for Qty: 14 Printed (Melatonin) 3 MG 3 Milligram sleep Refills: 0 TABLET Last Taken:02/13/17 Time:2200 Atorvastatin Calcium Dose: ORAL, 5 PM for for Qty: 14 Called in to (Atorvastatin 40 Milligram cholesterol Refills: 0 Pharm 1 Calcium) 40 MG Last Taken:02/13/17 TABLET Time:1700 CONTINUE taking these Home Medications: Lisinopril (Lisinopril) Dose: ORAL, DAILY for BP 20 MG TABLET 1 Tablet Last Taken:02/14/17 Time:0800 Gabapentin (Gabapentin) Dose: ORAL, THREE TIMES DAILY 300 MG CAPSULE 1 Capsule for RLS Last Taken:02/14/17 Time:0800 STOP taking these DISCONTINUED Home Medications: Lamotrigine (Lamictal) 25 MG Dose: ORAL, TWICE DAILY for SEIZURES & TABLET 175 Milligram MENTAL HEALTH Reason Stopped: Changed Dose Ibuprofen (Ibuprofen) 800 MG Dose: ORAL, THREE TIMES DAILY as TABLET 1 Tablet needed for PAIN Reason Stopped: Not using Anusol Hc (Anusol-Hc) 25 MG Dose: RECTAL, TWICE DAILY for SUPP.RECT 1 Suppository hemorrhoid Reason Stopped: Not using Lidocaine HCl (Lidocaine HCl) Dose: On the skin, THREE TIMES DAILY 2 % JEL..ML. 5 Milliliters as needed for PAIN Reason Stopped: Not using Insulin Detemir (Levemir) 100 Dose: Inject into fatty tissue, TWICE UNIT/ML VIAL 12 Units DAILY for DM Reason Stopped: To use VGO Insulin Aspart (Novolog) 100 Dose: Inject into fatty tissue, BEFORE UNIT/ML VIAL See Instructions MEALS AND AT BEDTIME for dm BEFORE MEALS Blood Insulin Sugar Units <80 0 81-150 6 151-200 8 201-250 10 251-300 12 301-350 14 351-400 16 >400 18 and Call Doctor AT BEDTIME Blood Insulin Sugar Units <80 0 81-100 0 101-200 0 201-250 2 251-300 3 301-350 4 351-400 5 >400 6 and Call Doctor Reason Stopped: Changed how to take Stop ibuprofen, Ketorolac, lidocaine, metoprolol, Seroquel, Risperdal and Zoloft. Multiple Neuroleptics: ([x]) Not Applicable OR Document below three failed attempts at monotherapy, or a plan to taper to monotherapy, or augmentation of Clozapine. () Patient's Diet: Consistent carbohydrate 2. Patient's Activity: No restrictionis. DC Disposition: To home/brother. Brother will be monitoring medications. Recommendations: Resume V-GO at home. Stress test needed. Follow up with Dr. Valencia for diabetes. CPAP is recommended. Studies pending at time of discharge: none. Referred To: Ivon Funes, 02/19/17 at 3 pm. [place] Sarah White APRN on 02/20/17 at 11:20AM Krysten Wilks APRN at Dr. Valencia's office 03/06/17 at 9:[address] Trino Manning 03/08/17 at 4 pm. Copies To: Marcos; OTTO MIRELES,ILYA; RED MIRELES PhD,TRINO Guillen
== END 2017-02-14 11:47 | DRG 753 ==
LOC: ENRESERVDT → ENRESERVTM → CP SOUTH 10:50 → ENPENDDIS 02-14 12:00
PROVIDERS: ADMIT Psychiatry & Neurology Addiction Medicine
DX: F31.9 Bipolar disorder, unspecified (principal); G62.9 Polyneuropathy, unspecified; G25.81 Restless legs syndrome; H26.9 Unspecified cataract; I10 Essential (primary) hypertension
CPT/HCPCS: 36415; J1644; J1815

== ENCOUNTER 2017-03-13 22:19 | Emergency (ER) | payer OTHER ==
[~2017-03-13 22:19] MED LIST changes: +ATORVASTATIN CA40 M1 PO; +LAMICTAL100 M2 PO; +LEVEMIR100 UNIT/1 SC; +MELATONIN3 M4 PO; +TRAZODONE HCL100 M1 PO; +VGO 201 EACH SQ; +VGO 401 EACH SC
[2017-03-13 22:45] LABS: ABSOLUTE BASOPHIL COUNT 0 /CUMM (0.0-0.2); ABSOLUTE EOSINOPHIL COUNT 0.2 /CUMM (0.0-0.7); ABSOLUTE GRANULOCYTE CT 4.2 /CUMM (1.4-6.5); ABSOLUTE LYMPH COUNT 2.3 /CUMM (1.2-3.4); ABSOLUTE MONOCYTE COUNT 0.6 /CUMM (0.10-0.60); BASOPHIL % 0.2 % (0.0-2.0); EOSINOPHIL % 3.3 % (0-5); GRANULOCYTE % 57.6 % (42.2-75.2); HEMATOCRIT 43.3 % (42-52); MEAN CORPUSCULAR HGB CONC 34.9 G/DL (33.0-37.0); MEAN CORPUSCULAR VOLUME 88.8 FL (80.0-94.0); MEAN PLATELET VOLUME 7.8 FL (7.4-10.4); PLATELET COUNT 233 /CUMM (130-400); RBC DISTRIBUTION WIDTH 12.3 % (11.5-14.5); RED BLOOD CELL CT 4.88 /CUMM (4.70-6.10); WHITE BLOOD CELL COUNT 7.3 /CUMM (4.8-10.8)
--- NOTE | 2017-03-13 23:06 | RADIOLOGY REPORT ---
EXAMINATION: XR PORTABLE CHEST CLINICAL INFORMATION: Chest pain COMPARISON: Multiple priors, most recently 02/05/2017 TECHNIQUE: Portable frontal view of the chest was obtained. FINDINGS: Cardiac leads overlie the chest. The lungs are well expanded. There is no focal consolidation, edema, or effusion. No pneumothorax. The cardiomediastinal silhouette is within normal limits. No acute osseous abnormality. IMPRESSION: No acute pulmonary findings.
--- NOTE | 2017-03-13 23:09 | ED GENERAL ADULT ---
See Addendum History of Present Illness General Chief Complaint: Chest Pain Stated Complaint: "LOW BP" PER SON, CARMEN [id number] Source: patient, family, old records Exam Limitations: no limitations Vital Signs & Intake/Output Vital Signs & Intake/Output Vital Signs Date Time Temp Pulse Resp B/P B/P Pulse O2 O2 Flow FiO2 Mean Ox Delivery Rate 03/14 0410 97.9 73 18 131/80 95 Room Air 03/14 0041 98.2 80 18 121/64 96 Room Air 03/13 2323 98.5 03/13 2252 98 Room Air 03/13 2250 87 18 108/72 97 Nasal 2.0L Cannula 03/13 2228 86 20 87/50 98 Room Air Allergies Coded Allergies: aspirin (PER MED LIST 02/05/17) diphtheria,pertussis (acellular),te (From ADACEL(TDAP ADOLESN/ADULT)(PF)) (PER MED LIST 02/05/17) Reconcile Medications Atorvastatin Calcium 40 MG TABLET 40 MG PO 1700 for cholesterol Gabapentin 300 MG CAPSULE 1 CAP PO TID RLS (Reported) Lamotrigine (Lamictal) 100 MG TABLET 200 MG PO BID seizures/moods Lisinopril 20 MG TABLET 1 TAB PO DAILY BP (Reported) Melatonin 3 MG TABLET 3 MG PO AT BEDTIME for sleep Trazodone HCl 100 MG TABLET 100 MG PO AT BEDTIME insomnia Triage Note: CHEST PAIN FOR 3 HRS W/ EPISODES OF HYPOTENSION B/P SYS IN 80'S AT HOME Triage Nurses Notes Reviewed? yes HPI: Patient presents for evaluation of dizziness and elevated blood sugar and low blood pressure over the course of today. Patient states he spoke with his primary care physician and was told to go to the emergency department. In addition to the above he has felt nauseous and has been experiencing a little chest pain over the left lower chest. It is described as a sharp intermittent pain that lasts about 15 minutes and he has had 2-3 episodes today. In addition he is also experiencing dyspnea "like a heavy chest" all that seems to have now resolved. In addition he gets bilateral leg pain due to a chronic history of restless leg syndrome. He denies any associated fever or cold symptoms. He states he fell twice today secondary to his dizziness. He denies any alcohol or drug use. He is a nonsmoker. He denies leg swelling. Past History Travel History Traveled to [place] past 21 day No Medical History Any Pertinent Medical History? see below for history Neurological: seizure, RESTLESS LEG SYNDROME PERIPHERAL NEUROPATHY EENT: cataracts Cardiovascular: hypertension, hyperlipidemia Respiratory: SLEEP APNEA CPAP Gastrointestinal: peptic ulcer disease Hepatic: NONE Renal: NONE Musculoskeletal: ARTHRITIS LEFT SHOULDER (DENIES CURRENT PROBLEM) Psychiatric: bipolar disease, depression, insomnia, Suicide attempts "3-4" TIMES BY HANGING PER PT Endocrine: DM Blood Disorders: NONE Cancer(s): NONE ABRASIVE SAWYER/Reproductive: NONE History of MRSA: Yes History of VRE: No History of CDIFF: No Tetanus Vaccine: 11/27/14 Surgical History Surgical History: ABSCESS REMOVAL tonsillectomy Psychosocial History Who do you live with Brother Services at Home None What is your primary language Pashto Tobacco Use: Quit >30 days ago Daily Tobacco Use Amount/Type: =< 4 Cigarettes daily ETOH Use: occasional use Illicit Drug Use: denies illicit drug use Family History Family History, If Any: FATHER FH: diabetes mellitus FH: lymphoma FH: seizures MOTHER FH: CAD (coronary artery disease) FH: diabetes mellitus FH: hyperlipidemia Hypertension Hx Contributory? No Review of Systems Review of Systems Constitutional: Reports: no symptoms. EENTM: Reports: no symptoms. Respiratory: Reports: no symptoms. Cardiovascular: Reports: no symptoms. GI: Reports: no symptoms. Genitourinary: Reports: no symptoms. Musculoskeletal: Reports: no symptoms. Skin: Reports: no symptoms. Neurological/Psychological: Reports: no symptoms. Hematologic/Endocrine: Reports: no symptoms. Immunologic/Allergic: Reports: no symptoms. All Other Systems: Reviewed and Negative Physical Exam Physical Exam General Appearance: see below Comments: Gen.: Well-nourished, well-developed, no acute respiratory distress. Head: Normocephalic, atraumatic. Eyes: Normal inspection bilaterally Ears: Normal inspection bilaterally Nose: Normal inspection Throat/mouth : Moist mucosa Neck: Supple, full range of motion, no goiter Heart: Regular rate and rhythm, no murmurs rubs or gallops Lungs: Clear to auscultation bilaterally with normal air entry Chest: Nontender Back: Normal range of motion Abdomen: Soft, nontender, nondistended, normal bowel sounds Extremities: Normal range of motion grossly, equal radial pulses, no cyanosis clubbing or edema, calves nontender Neurologic: Cranial nerves grossly intact, speech is clear Skin: warm and dry Psychiatric: Calm, cooperative, no apparent delusions or hallucinations Core Measures ACS in differential dx? No CVA/TIA Diagnosis: No Severe Sepsis Present: No Septic Shock Present: No Progress Differential Diagnoses I considered the following diagnoses in my evaluation of the patient: Acute coronary syndrome, musculoskeletal chest pain, acid reflux, atypical chest pain Plan of Care: Orders Procedure Date/time Status TROPONIN LEVEL 03/14 400 Complete EKG 03/14 400 Active TROPONIN LEVEL 03/13 2231 Complete MAGNESIUM 03/13 2231 Complete COMPREHENSIVE METABOLIC PANEL 03/13 2231 Complete CBC WITHOUT DIFFERENTIAL 03/13 2231 Complete EKG 03/13 2223 Active Laboratory Tests 03/14/17 0400: Troponin I < 0.01 03/13/17 2240: Anion Gap 12, Estimated GFR 58 L, BUN/Creatinine Ratio 24.6, Glucose 100 H, Calcium 9.8, Magnesium 2.0, Total Bilirubin 0.4, AST 18, ALT 33, Alkaline Phosphatase 78, Troponin I < 0.01, Total Protein 7.5, Albumin 4.5, Globulin 3.0, Albumin/Globulin Ratio 1.5, CBC w Diff NO MAN DIFF REQ, RBC 4.88, MCV 88.8, MCH 31.0, RDW 12.3, MPV 7.8, Gran % 57.6, Lymphocytes % 31.3, Monocytes % 7.6, Eosinophils % 3.3, Basophils % 0.2, Absolute Granulocytes 4.2, Absolute Lymphocytes 2.3, Absolute Monocytes 0.6, Absolute Eosinophils 0.2, Absolute Basophils 0, PUBS MCHC 34.9 Diagnostic Imaging: Discussed w/RAD: Radiology Read. CXR Impression: PATIENT: RIGOBERTO BARKER PRESENT AGE: 51 PATIENT ACCOUNT NO: [id number] : 64 LOCATION: [facility] ORDERING PHYSICIAN: JUICE MANRIQUEZ MD SERVICE DATE: 03/13/17 EXAM TYPE: RAD - XRY-PORTABLE CHEST XRAY EXAMINATION: XR PORTABLE CHEST CLINICAL INFORMATION: Chest pain COMPARISON: Multiple priors, most recently 02/05/2017 TECHNIQUE: Portable frontal view of the chest was obtained. FINDINGS: Cardiac leads overlie the chest. The lungs are well expanded. There is no focal consolidation, edema, or effusion. No pneumothorax. The cardiomediastinal silhouette is within normal limits. No acute osseous abnormality. IMPRESSION: No acute pulmonary findings. DICTATED BY: CANDICE RAMIREZ MD DATE/TIME DICTATED:03/13/172301 PORCELAIN TECHNICIAN:RODOLFO DATE/TIME TRANSCRIBED:03/13/172301 CONFIDENTIAL, DO NOT COPY WITHOUT APPROPRIATE AUTHORIZATION. <Electronically signed in Other Vendor System> SIGNED BY: JAMES MIRELES,CANDICE 03/13/172305 Initial ED EKG: NSR, rate (90), lafb Prior EKG: unchanged Comments: 03/14/2017 12:41:49 AM I have updated patient on test results. He is amenable to a repeat EKG and troponin. 03/14/2017 4:54:36 AM patient is sleeping comfortably. 03/14/2017 5:40:38 AM I have updated Rigoberto on his test results and have discussed his case with Dr. Manning who will follow up with a stress test. Departure Departure Disposition: HOME OR SELF CARE Condition: Stable Clinical Impression Primary Impression: Chest pain Qualifiers: Chest pain type: unspecified Qualified Code: R07.9 - Chest pain, unspecified Secondary Impressions: Dehydration, Dizziness Referrals: JONELLE PERKINS MD (PCP/Family) RED MIRELES PhD,TRINO Guillen Additional Instructions: Maintain a good fluid intake. Follow up with Dr. Manning this week. Notify your primary care doctor of this emergency department visit and treatment plan. Return if any concerns or sudden worsening. Please note that there might be incidental findings in your evaluation that are unrelated to the current emergency department visit. Please notify your primary care doctor about this emergency department visit in order to obtain and review all of the testing performed so that these incidental findings can be monitored as needed. If you had an x-ray performed, please understand that some fractures may not be seen on the initial set of x-rays. If your symptoms persist you might need a repeat set of x-rays to check for such a fracture. If you had a laceration evaluated, please understand that foreign bodies such as glass or wood may not be visible to the naked eye or on plain x-rays. If the wound becomes red, swollen, increasingly more painful or if there is any drainage from the wound, please have it reevaluated by a physician for the possibility of a retained foreign body. Thank you for choosing the [facility] Emergency Department for your care. It was a pleasure to serve you today. Juice Manriquez M.D. [facility] Departure Forms: Customer Survey General Discharge Information Critical Care Note Critical Care Note Critical Care Time: non-applicable
[2017-03-14 05:54] VITALS: BP 110/55
== END 2017-03-14 06:02 ==
LOC: ERH 22:19
PROVIDERS: Emergency Medicine
DX: E86.0 Dehydration (principal); R42 Dizziness and giddiness; R07.89 Other chest pain
CPT/HCPCS: 93005; 93010

== ENCOUNTER 2018-01-08 16:51 | Observation (INO) | payer OTHER ==
[~2018-01-08] VITALS: Ht 162.6 cm; Wt 101.6 kg
--- NOTE | 2018-01-08 17:19 | ED CARDIAC/CP/PALPITATIONS ---
History of Present Illness General Chief Complaint: Chest Pain Stated Complaint: CHEST PAIN Source: patient Exam Limitations: no limitations Vital Signs & Intake/Output Vital Signs & Intake/Output Vital Signs Date Time Temp Pulse Resp B/P B/P Pulse O2 O2 Flow FiO2 Mean Ox Delivery Rate 01/08 2131 97.4 77 18 104/74 95 01/08 1854 97.5 74 18 118/70 96 01/08 1703 96.5 82 18 155/95 96 Room Air Allergies Coded Allergies: diphtheria,pertussis (acellular),te (From ADACEL(TDAP ADOLESN/ADULT)(PF)) (PER MED LIST 02/05/17) aspirin (HISTORY OF BLEEDING ULCERS 01/08/18) Reconcile Medications Atorvastatin Calcium 40 MG TABLET 40 MG PO 1700 for cholesterol Gabapentin 300 MG CAPSULE 1 CAP PO TID RLS (Reported) Lamotrigine (Lamictal) 100 MG TABLET 200 MG PO BID seizures/moods Lisinopril 20 MG TABLET 1 TAB PO DAILY BP (Reported) Melatonin 3 MG TABLET 3 MG PO AT BEDTIME for sleep Trazodone HCl 100 MG TABLET 100 MG PO AT BEDTIME insomnia Triage Note: PT STATES THEY HE WOKE THIS AM VERY DIZZY, HIS SISTER TOOK HIS BP AND IT WAS LOW SO HE DRANK FLUIDS. PT COMES TO ER DUE TO HE IS STILL FEELING DIZZY AND HAS SLIGHT RAYMOND. WHEN ASKED ABOUT CP, STATES " ITS REALLY NOT A PAIN ITS JUST A HEAVEY FEELING". PT TRIED TO SIT UP AND VOMITTED X1 AT THIS TIME Triage Nurses Notes Reviewed? yes Onset: Abrupt Duration: hour(s):, intermittent Timing: recent history Quality/Severity: moderate, severe Radiation: shoulders HPI: 52-year-old male comes into the emergency room with complaints of left-sided chest pain that is radiating to his left shoulder. Symptoms have been going on since this morning before any of them. Pain has been intermittent. Sharp and feels like someone sitting on his chest at times. Some associated nausea vomiting. Denies any diaphoresis. Nothing seems to make the symptoms better or worse. Denies any prior cardiac history. History of hypertension hyperlipidemia and diabetes. Denies any smoking. Comes in for further evaluation. (Benedict CANO,Sid) Past History Travel History Traveled to [place] past 21 day No Medical History Any Pertinent Medical History? 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 No (Sid Deluna) Review of Systems Review of Systems Constitutional: Reports: no symptoms. EENTM: Reports: no symptoms. Respiratory: Reports: see HPI. Cardiovascular: Reports: see HPI. GI: Reports: see HPI. Genitourinary: Reports: no symptoms. Musculoskeletal: Reports: no symptoms. Skin: Reports: no symptoms. Neurological/Psychological: Reports: no symptoms. Hematologic/Endocrine: Reports: no symptoms. Immunologic/Allergic: Reports: no symptoms. All Other Systems: Reviewed and Negative (Sid Deluna) Physical Exam Physical Exam General Appearance: well developed/nourished, alert, awake, mild distress Head: atraumatic, normal appearance Eyes: Bilateral: normal appearance. Ears, Nose, Throat: normal ENT inspection, hearing grossly normal Neck: normal inspection Respiratory: normal breath sounds, no respiratory distress Cardiovascular: regular rate/rhythm Gastrointestinal: soft Back: normal inspection Extremities: normal inspection Neurologic/Psych: awake, alert, oriented x 3, normal gait Skin: intact, normal color Core Measures ACS in differential dx? Yes CVA/TIA Diagnosis No Sepsis Present: No Sepsis Focused Exam Completed? No (Sid Deluna) Progress Differential Diagnosis: AMI, aortic dissection, cholecystitis, costochondritis, musculoskeletal pain, myocarditis, pancreatitis, pericarditis, pneumonia, pneumothorax, pulmonary embolism, PUD/GERD, unstable angina, V-fib/V-Tach, WPW syndrome Plan of Care: Orders Procedure Date/time Status TROPONIN LEVEL 01/08 2105 Complete EKG 01/08 2105 Active Add-on Test (ER Only) 01/08 1719 Active Telemetry/Poultry Inseminator 01/08 1709 Active TROPONIN LEVEL 01/08 1709 Complete PARTIAL THROMBOPLASTIN TIME 01/08 1709 Complete PROTHROMBIN TIME 01/08 1709 Complete D-DIMER 01/08 1709 Complete COMPREHENSIVE METABOLIC PANEL 01/08 1709 Complete CBC WITHOUT DIFFERENTIAL 01/08 1709 Complete EKG 01/08 165 Active Current Medications Sig/Gallo Start time Last Medication Dose Stop Time Status Admin Insulin Aspart 12 UNITS ONCE ONE 01/08 2200 UNVr (NovoLOG) 01/08 2201 Metformin HCl 1,000 MG ONCE ONE 01/08 2200 UNVr (Glucophage) 01/08 2201 Laboratory Tests 01/08/182120: Troponin I < 0.01 01/08/18 1803: Anion Gap 10, Estimated GFR > 60, BUN/Creatinine Ratio 28.6 H, Glucose 335 H, Calcium 9.9, Total Bilirubin 0.9, AST 22, ALT 29, Alkaline Phosphatase 66, Troponin I < 0.01, Total Protein 6.6, Albumin 3.9, Globulin 2.7, Albumin/ Globulin Ratio 1.4, PT 10.3, INR 0.95, APTT 28, D-Dimer High Sensitivty < 200, CBC w Diff NO MAN DIFF REQ, RBC 5.00, MCV 91.3, MCH 30.3, MCHC 33.2, RDW 12.5, MPV 8.4, Gran % 79.1 H, Lymphocytes % 15.4 L, Monocytes % 4.0, Eosinophils % 1.2, Basophils % 0.3, Absolute Granulocytes 4.1, Absolute Lymphocytes 0.8 L, Absolute Monocytes 0.2, Absolute Eosinophils 0.1, Absolute Basophils 0 Diagnostic Imaging: Viewed by Me: Radiology Read. Discussed w/RAD: Radiology Read. Initial ED EKG: normal sinus rhythm, rate (84), bordrline t wave abnormalities Repeat EKG: unchanged (Sid Deluna) Departure Departure Disposition: STILL A PATIENT Condition: Stable Clinical Impression Primary Impression: Chest pain with high risk for cardiac etiology Referrals: Pricilla Holt MD Departure Forms: Customer Survey General Discharge Information Observation Note Spoke With: Kerri MIRELES PHD,Duncan Guillen Physician Advisor Notified: JUICE MCCARTHY DO Place Patient In: Non-ED OBS Care Area Rationale for Observation: My rational for observation is as follows . Cardiac telemetry. Cardiac consultation. Serial EKGs. Serial troponins. (Sid Deluna) PA/AIRCRAFT LANDING GEAR INSPECTOR Co-Sign Statement Statement: ED Attending supervision documentation- [X] I saw and evaluated the patient. I have also reviewed all the pertinent lab results and diagnostic results. I agree with the findings and the plan of care as documented in the PA's/AIRCRAFT LANDING GEAR INSPECTOR's documentation. [X] I have reviewed the ED Record and agree with the PA's/AIRCRAFT LANDING GEAR INSPECTOR's documentation. [] Additions or exceptions (if any) to the PAs/AIRCRAFT LANDING GEAR INSPECTOR's note and plan are summarized below: [] I've seen and personally examined the patient and I agree with the PAs evaluation. He has left-sided chest discomfort with left arm pain. He woke up from sleep today with it. Multiple risk factors for coronary artery disease. He is being placed in inpatient observation. (Juice Mccarthy DO) Critical Care Note Critical Care Note Critical Care Time: non-applicable (Sid Deluna)
--- NOTE | 2018-01-08 18:02 | RADIOLOGY REPORT ---
EXAMINATION: XR CHEST CLINICAL INFORMATION: Chest pain COMPARISON: 03/13/2017 TECHNIQUE: AP and lateral views of the chest were obtained. FINDINGS: Mild dependent atelectasis. No consolidation, pneumothorax, or pleural effusion. Cardiac and mediastinal contours are normal. Pulmonary vasculature is unremarkable. There is degenerative disc disease in the thoracic spine. There is mild degenerative arthritis in the acromioclavicular and glenohumeral joints. IMPRESSION: No acute pulmonary findings.
[2018-01-08 18:38] LABS: PT 10.3 SEC (9.4-12.5); PTT 28 SEC (25-37)
[2018-01-08 18:48] LABS: ABSOLUTE BASOPHIL COUNT 0 /CUMM (0.0-0.2); ABSOLUTE EOSINOPHIL COUNT 0.1 /CUMM (0.0-0.7); ABSOLUTE GRANULOCYTE CT 4.1 /CUMM (1.4-6.5); ABSOLUTE LYMPH COUNT 0.8 /CUMM (1.2-3.4); ABSOLUTE MONOCYTE COUNT 0.2 /CUMM (0.10-0.60); BASOPHIL % 0.3 % (0.0-2.0); EOSINOPHIL % 1.2 % (0-5); GRANULOCYTE % 79.1 % (42.2-75.2); HEMATOCRIT 45.7 % (42-52); MEAN CORPUSCULAR HGB 30.3 PG (27.0-31.0); MEAN CORPUSCULAR HGB CONC 33.2 G/DL (33.0-37.0); MEAN CORPUSCULAR VOLUME 91.3 FL (80.0-94.0); MEAN PLATELET VOLUME 8.4 FL (7.4-10.4); PLATELET COUNT 230 /CUMM (130-400); RBC DISTRIBUTION WIDTH 12.5 % (11.5-14.5); WHITE BLOOD CELL COUNT 5.2 /CUMM (4.8-10.8)
--- NOTE | 2018-01-08 23:22 | History & Physical ---
Karuna MIRELES,[facility] 01/08/18 2321: General Information and HPI MD Statement: I have seen and personally examined ELINA BARKER and documented this H&P. The patient is a 52 year old M who presented with a patient stated chief complaint of [Chest Pain]. Source of Information: patient Exam Limitations: no limitations History of Present Illness: Mr. Barker is a 52 year old gentleman with a past medical history of uncontrolled diabetes, hyperlipidemia, sleep apnea (currently not using CPAP), restless leg syndrome, cataracts, history of bleeding ulcers, left shoulder arthritis, anxiety, bipolar disease, suicidal tendencies in the past and Seizure disorder who came to the ED with complaints of Chest Pain which started this morning. According to the Patient he was in his usual state of health until after waking up this morning around 8 am when he felt his head was spinning, went to use the bathroom and after returning to his bed he started having left sided chest Pain, radiating to his left arm, with no precipitation, aggravating or relieving factors. Associated with nausea and vomiting but no diaphoresis or abdominal pain. Pain is sharp in nature, intermittent and and starts fading but never goes away completely, he could always feels the pain. He has had similar episodes of chest pain in past, last episode was couple of months ago, had 3 stress tests done in the past with the latest one done within a year all of which were negative. Denies any SOB, palpitations, leg swelling, Orthopnea or PND, recent illness or change in medications except for Lisonopril which was decreased to 5mg juliette he last saw Dr. Manning 1 month ago. He also follows up with dr. Kirkpatrick for T2DM, latest A1C around 14. Last visit with Dr. Kirkpatrick was within past 2 weeks and was started on Trulicity at that time but he has not started using it yet. Allergies/Medications Allergies: Coded Allergies: diphtheria,pertussis (acellular),te (From ADACEL(TDAP ADOLESN/ADULT)(PF)) (PER MED LIST 02/05/17) aspirin (HISTORY OF BLEEDING ULCERS 01/08/18) Home Med list Atorvastatin Calcium 40 MG TABLET 2 TAB PO 1700 for cholesterol Gabapentin 300 MG CAPSULE 1 CAP PO TID RLS (Reported) Lamotrigine (Lamictal) 100 MG TABLET 200 MG PO BID seizures/moods Lisinopril 5 MG TABLET 1 TAB PO DAILY HTN (Reported) Melatonin 3 MG TABLET 3 MG PO AT BEDTIME for sleep Metformin HCl 1,000 MG TABLET 1 TAB PO BID DIABETES (Reported) Trazodone HCl 100 MG TABLET 100 MG PO AT BEDTIME insomnia Observation Initial Note - I have personally examined ELINA BARKER on 01/08/18 at 2322. The disposition of ELINA BARKER is uncertain at this time and before a determination can be made, he requires a period of observation for the following reasons [chets pain, rule out ACS] Past History Travel History Traveled to [place] past 21 day No Medical History Neurological: seizure, RESTLESS LEG SYNDROME PERIPHERAL NEUROPATHY EENT: cataracts Cardiovascular: hypertension, hyperlipidemia Respiratory: SLEEP APNEA CPAP Gastrointestinal: peptic ulcer disease Hepatic: NONE Renal: NONE Musculoskeletal: ARTHRITIS LEFT SHOULDER (DENIES CURRENT PROBLEM) Psychiatric: bipolar disease, depression, insomnia, Suicide attempts "3-4" TIMES BY HANGING PER PT Endocrine: DM Blood Disorders: NONE Cancer(s): NONE 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 Patient staying with sister temporarily. Services at Home: None Primary Language: Cameroonian Smoking Status: Never Smoked ETOH Use: denies use Illicit Drug Use: denies illicit drug use Functional Ability ADLs Independent: dressing, eating, toileting, bathing. Ambulation: independent IADLs Independent: shopping, housework, finances, food prep, telephone, transportation , medication admin. Review of Systems Review of Systems Constitutional: Reports: no symptoms. EENTM: Reports: no symptoms. Cardiovascular: Reports: chest pain. Respiratory: Reports: no symptoms. GI: Reports: nausea, vomiting. Genitourinary: Reports: no symptoms. Musculoskeletal: Reports: no symptoms. Skin: Reports: no symptoms. Neurological/Psychological: Reports: no symptoms. Hematologic/Endocrine: Reports: no symptoms. Immunologic/Allergic: Reports: no symptoms. All Other Systems: Reviewed and Negative Exam & Diagnostic Data Last 24 Hrs of Vital Signs/I&O Vital Signs Date Time Temp Pulse Resp B/P B/P Pulse O2 O2 Flow FiO2 Mean Ox Delivery Rate 01/08 2333 98.5 79 18 125/74 96 Room Air Room Air 01/08 2131 97.4 77 18 104/74 95 01/08 1854 97.5 74 18 118/70 96 01/08 1703 96.5 82 18 155/95 96 Room Air Physical Exam General Appearance Alert, Oriented X3, Cooperative Skin No Rashes, No Breakdown HEENT Atraumatic, PERRLA, EOMI, Mucous Membr. moist/pink Neck Supple, No JVD, No thryomegaly Cardiovascular Regular Rate, Normal S1, Normal S2 Lungs Clear to Auscultation, Normal Air Movement Abdomen Normal Bowel Sounds, Soft, No Tenderness Neurological Normal Speech, Strength at 5/5 X4 Ext, Normal Tone, Sensation Intact, Cranial Nerves 3-12 NL Extremities No Clubbing, No Cyanosis, No Edema, Normal Pulses Last 24 Hrs of Labs/Obie: Laboratory Tests 01/08/182120: Troponin I < 0.01 01/08/181802: Anion Gap 10, Estimated GFR > 60, BUN/Creatinine Ratio 28.6 H, Glucose 335 H, Calcium 9.9, Total Bilirubin 0.9, AST 22, ALT 29, Alkaline Phosphatase 66, Troponin I < 0.01, Total Protein 6.6, Albumin 3.9, Globulin 2.7, Albumin/ Globulin Ratio 1.4, PT 10.3, INR 0.95, APTT 28, D-Dimer High Sensitivty < 200, CBC w Diff NO MAN DIFF REQ, RBC 5.00, MCV 91.3, MCH 30.3, MCHC 33.2, RDW 12.5, MPV 8.4, Gran % 79.1 H, Lymphocytes % 15.4 L, Monocytes % 4.0, Eosinophils % 1.2, Basophils % 0.3, Absolute Granulocytes 4.1, Absolute Lymphocytes 0.8 L, Absolute Monocytes 0.2, Absolute Eosinophils 0.1, Absolute Basophils 0 Diagnostic Data EKG Results NSR Heart rate 84 QTc 450 CXR Results No acute Pathology. Assessment/Plan Assessment: Mr. Barker is a 52 year old gentleman with a past medical history of uncontrolled diabetes, hyperlipidemia, sleep apnea (currently not using CPAP), restless leg syndrome, cataracts, history of bleeding ulcers, left shoulder arthritis, anxiety, bipolar disease, suicidal tendencies in the past and Seizure disorder who came to the ED with complaints of Chest Pain which started this morning. Problem List; 1. Chest pain r/o ACS 2. Uncontrolled diabetes 3. Hx of HLD, sleep apnea , restless leg syndrome, left shoulder arthritis, anxiety, bipolar disease and Seizure disorder - Will observe the patient to telemetry floor for 24-48 hours. - Will start the patient on aspirin and statin. Sublingual nitroglycerin as needed for chest pain - Troponin and EKG 3 to rule out ACS. - Await cardiology recommendations. Echocardiogram if okay with cardiology. - U tox pending - . Hold the oral hypoglycemic agents and start the patient on Accu-Cheks and NovoLog sliding scale. Also start the patient on Levemir 12 units twice a day, with the first dose starting tonight in the blood sugar level is above 150. - Last hemoglobin A1c was around 14, which recheck A1c. - Appreciate endocrinology recommendations. DVT prophylaxis subcutaneous heparin Patient is full code As Ranked By This Provider Problem List: 1. Chest pain Core Measures/Misc (07/15) Acute Coronary Syndrome ACS Diagnosis: No Congestive Heart Failure Congestive Heart Failure Diagnosis No Cerebrovascular Accident CVA/TIA Diagnosis: No VTE (View Protocol) VTE Risk Factors Age>40 No Mechanical VTE Prophylaxis d/t N/A MechProphylax Ordered No VTE Pharm Prophylaxis d/t NA PharmProphylax ordered Sepsis (View protocol) Sepsis Present: No Tyler Schroeder 01/09/18 0053: Resident Review Statement Resident Statement: examined this patient, discussed with internal corrosion specialist, agreed with internal corrosion specialist, amended to note Other Findings: Ms Barker is a 52 year gentleman who is a nonsmoker, with a past medical history of hypertension, hyperlipidemia, diabetes, obstructive sleep apnea on CPAP, bipolar, depression, seizure, restless leg syndrome, arthritis of left shoulder, peptic ulcer disease, family history of coronary disease and diabetes in mother, history of chest pain syndrome status post cardiac catheterizations done in 2010 at [facility] was no abnormal findings, with was brought in with a chief concern of left pain radiating to left shoulder. Symptoms started approximately a.m. of the day of admission, quality-like something sitting on his chest, lasted for approximately few minutes, resolves on its own. Continued to have intermittent pains of similar quality. Had several episodes during the day. Also had associated dizziness at the time. No associated diaphoresis, palpitations, nausea, dyspnea, vomiting, abdominal pain. No cough, flulike symptoms, neurological deficits, vision changes. He has a history of uncontrolled diabetes, with last hemoglobin A1c around 14, and VGO pump was changed from 20-->30, with approximately 12 units with every meal. He was also started on trulicity, but has not started taking it yet. Gives a history of GI bleed, if he takes regular aspirin. History of seizures is unclear at this time, since he was diagnosed as having migraines by his [place] neurologists. At the time of admission-vitals 96.5, pulse rate 82, blood pressure 155/95 ( improved to 118/70), 96% on room air. On examination: General Exam: AAOx3, No acute distress, Skin: No rashes, no breakdown;HEENT: PERRLA, EOMI;Neck: Supple, No JVD, No cervical lymphadenopathy;CVS: Reg Rate, Normal S1,S2, No MGR;Resp: Normal air entry, no ronchi/rales;Abdomen: Soft, No tenderness, Normal Bowel Sounds;Neuro: Normal Speech, Strength 5/5 b/l x 4 extremities, Sensation intact, CN III-XII NL, Reflexes 2+;Extremities: No cyanosis, no pedal edema. Pertinent lab findings: WBC 5.2, hemoglobin 15.2, platelets 2:30. Sodium 135, potassium 5.4, BUN 20, creatinine 0.7, glucose 335, liver enzymes-AST 22, ALT 29 , cardiac enzymes troponin I- 0.01, 0.01. INR 0.95, d-dimer 200. Chest x-ray no acute pulmonary findings. Recent stress test, as per Dr. Manning-stress test showing mild apical ischemia with a normal EF of 55%. His most recent echocardiogram shows a normal EF of 70% with mild LVH and trace TR. Problem list: #1 unstable angina #2 rule out ACS #3 hypertension #4 diabetes #5 seizure disorder #6 hyperkalemia Plan: ACS: etiology in this case is likely unstable angina with s/o of unstable angina w/o elevated cardiac enzymes with positive cardiac risk factors male sex/age > 35/ HLD/DM/HTN. Other etiologies such as anxiety,aortic dissection, GERD, MVP, myocarditis, catonary artery spasm or PE are to considered as differentials. Patients with unstable angina requiring observation to inpatient hospital. #1 Obs telemetry for cardiac monitoring #2 Enteric coated aspirin stat was given in the ED, and daily aspirin EC and statin #3 serial electrocardiograms, cardiac enzymes every 8 hours #4 sublingual nitroglycerin for pain control prn (hold for low BP) #5 IV morphine for pain relief prn #6 metoprolol 25 mg by mouth within the first 24 hoursafter ruling out contraindications such as active CHF, bradycardia, hypotension, heart block and cocaine use #7 IV heparin after conferring with cardiology only. #9 check thyroid function U tox, HbA1c #10 echocardiogram. #11 Accu-Cheks, insulin sliding scale #12 administer Levemir 12 units twice a day, with first dose tonight if the blood glucose is above 150. NovoLog sliding scale as per endocrinology. Discussed with Dr. kirkpatrick. Informed the nursing staff of the plan. #13 Recheck K in the am. Consults: #1 cardiology, endocrinology Housekeeping: #1 DVT prophylaxis-subcutaneous heparin(hold if pt has any GI bleed) #2 GI prophylaxis-Protonix. CODE STATUS-DNR/DNI.
[2018-01-08] MEDS ORDERED: METFORMIN HCL1000 M1 PO (23:29)
[2018-01-08] MEDS ORDERED: LISINOPRIL5 M1 PO (23:29)
[2018-01-08] MEDS ORDERED: ATORVASTATIN CA40 M1 PO (23:30)
[2018-01-09 00:21] VITALS: BP 120/78
[2018-01-09 05:10] LABS: ABSOLUTE BASOPHIL COUNT 0 /CUMM (0.0-0.2); ABSOLUTE EOSINOPHIL COUNT 0.2 /CUMM (0.0-0.7); ABSOLUTE GRANULOCYTE CT 3.6 /CUMM (1.4-6.5); ABSOLUTE LYMPH COUNT 2.5 /CUMM (1.2-3.4); ABSOLUTE MONOCYTE COUNT 0.5 /CUMM (0.10-0.60); BASOPHIL % 0.4 % (0.0-2.0); EOSINOPHIL % 2.6 % (0-5); GRANULOCYTE % 52.8 % (42.2-75.2); HEMATOCRIT 43.1 % (42-52); MEAN CORPUSCULAR HGB 30.5 PG (27.0-31.0); MEAN CORPUSCULAR HGB CONC 33.6 G/DL (33.0-37.0); MEAN CORPUSCULAR VOLUME 90.8 FL (80.0-94.0); MEAN PLATELET VOLUME 7.9 FL (7.4-10.4); PLATELET COUNT 251 /CUMM (130-400); RBC DISTRIBUTION WIDTH 12.9 % (11.5-14.5); RED BLOOD CELL CT 4.75 /CUMM (4.70-6.10); WHITE BLOOD CELL COUNT 6.9 /CUMM (4.8-10.8)
--- NOTE | 2018-01-09 05:59 | Event Note ---
Event Note Event Note: Patient has an episode of bloody vomiting around 5:15 AM. Vitals stable. Patient does not want anything for nausea. Aspirin and subcutaneous heparin discontinued. DVT prophylaxis with Alps only. GI consult placed. Awaiting recommendations. Will inform Dr. Manning about the above-mentioned evening.
[2018-01-09 06:59] VITALS: BP 130/80
--- NOTE | 2018-01-09 07:20 | PN- Housestaff ---
Subjective Follow-up For: unstable angina r/o acs bloody emesis Tele-Events Since Last Visit: NSR 72-76 QRS .08 AR .2 Subjective: No acute events overnight. Continue to be naseauous. Has not had any vomiting episodes. Cntinues to have a headache and vertigo which is chronic. Review of Systems Constitutional: Reports: no symptoms, see HPI. Gastrointestinal: Reports: nausea. Denies: vomiting. Neurological/Psychological: Reports: see HPI (vertigo), headache. Objective Last 24 Hrs of Vital Signs/I&O Vital Signs Date Time Temp Pulse Resp B/P B/P Pulse O2 O2 Flow FiO2 Mean Ox Delivery Rate 01/09 1404 98.9 79 18 112/74 94 01/09 1114 Room Air Room Air 01/09 0659 98.1 72 18 130/80 97 Room Air 01/09 0021 98.5 77 18 120/78 95 Room Air 01/08 2333 98.5 79 18 125/74 96 Room Air Room Air 01/08 2131 97.4 77 18 104/74 95 Intake & Output 01/09 1600 01/09 0800 01/09 0000 Intake Total 600 110 Output Total Balance 600 110 Intake, Oral 600 100 Intake, Other 10 Patient 211 lb 211 lb Weight Physical Exam General Appearance: Alert, Oriented X3, Cooperative Cardiovascular: Regular Rate, Normal S1, Normal S2 Lungs: Clear to Auscultation, Normal Air Movement Abdomen: Normal Bowel Sounds, Soft, No Tenderness Vascular: 2+ radial pulses Current Medications: Current Medications Sig/Gallo Start time Last Medication Dose Route Stop Time Status Admin Acetaminophen 1,000 MG Q6P PRN 01/09 1515 AC 01/09 N/A 1 UNIT IV 1628 Acetaminophen 650 MG Q8P PRN 01/09 1500 DC PO Acetaminophen 650 MG Q8P PRN 01/09 0100 DC PO Aspirin Buffered 81 MG DAILY 01/09 1000 CAN PO Atorvastatin Calcium 80 MG 1700 01/09 1700 AC 01/09 PO 1628 Gabapentin 300 MG ONCE ONE 01/09 1200 DC 01/09 PO 01/09 1201 1158 Gabapentin 300 MG TID 01/08 2330 AC 01/09 PO 1628 Heparin Sodium 5,000 UNIT Q8 01/09 0600 DC (Porcine) SC Ibuprofen 600 MG Q6P PRN 01/09 1015 DC 01/09 PO 1010 Insulin Aspart 0 TIDAC/HS 01/08 2345 01/09 DC 1629 Insulin Aspart 12 UNITS ONCE ONE 01/08 220 DC 01/08 SC 01/08 2201 221 Insulin Detemir 12 UNITS BID 01/08 2345 AC 01/09 SC 0826 Lamotrigine 200 MG BID 01/08 2330 AC 01/09 PO 0827 Lisinopril 5 MG DAILY 01/09 1000 CAN PO Metformin HCl 1,000 MG ONCE ONE 01/08 2200 DC 01/08 PO 01/08 2201 221 Morphine Sulfate 2 MG Q6P PRN 01/09 1515 AC IV Pantoprazole Sodium 40 MG DAILY 01/09 1000 AC 01/09 IV 0826 Pantoprazole Sodium 40 MG Q24H 01/09 0515 DC IV Tramadol HCl 50 MG Q8P PRN 01/09 0100 DC PO Trazodone HCl 100 MG AT BEDTIME 01/09 2200 AC PO Last 24 Hrs of Lab/Obie Results Last 24 Hrs of Labs/Mics: Laboratory Tests 01/09/18 0450: Troponin I < 0.01 01/09/18 0450: Anion Gap 13, Estimated GFR > 60, BUN/Creatinine Ratio 23.8, CBC w Diff NO MAN DIFF REQ, RBC 4.75, MCV 90.8, MCH 30.5, MCHC 33.6, RDW 12.9, MPV 7.9, Gran % 52.8, Lymphocytes % 36.4, Monocytes % 7.8, Eosinophils % 2.6, Basophils % 0.4, Absolute Granulocytes 3.6, Absolute Lymphocytes 2.5, Absolute Monocytes 0.5, Absolute Eosinophils 0.2, Absolute Basophils 0 01/08/182120: Troponin I < 0.01 Assessment/Plan Assessment: A: 52 year old gentleman with a past medical history of uncontrolled diabetes, hyperlipidemia, sleep apnea (currently not using CPAP), restless leg syndrome, cataracts, history of bleeding ulcers, left shoulder arthritis, anxiety, bipolar disease, suicidal tendencies in the past and seizure disorder who came to the ED with complaints of chest pain found to be unstable angina and an episode of P: #unstable angina r/o acs trop <.01 x3 d-dimer <200 cxr negative -follow cardiology recommendations #bloody emesis h/h 14.5 -> 43.1 -cont pantoprazole -avoid nsaids -f/u GI recs -monitor h/h, type and cross #diabetes glucose 334 hgb a1c 14.1 -cont levemir, novolog sliding scale -follow endocinology recommendations -cont gabapentin #seizure hx -cont lamotrigene #chronic medical conditions -cont trazodone, atorvastatin #FULL CODE #DVT prophylaxis Problem List: 1. Unstable angina 2. GI bleed Pain Ratin Pain Location: abd Pain Goal: Pain 4 or less Pain Plan: pain pathway avoid nsaids Tomorrow's Labs & Rationales: cbc bep inr
[2018-01-09 14:04] VITALS: BP 112/74
--- NOTE | 2018-01-09 15:18 | Cons- Endocrinology ---
General Information and HPI Consulting Request Date of Consult: 01/09/18 Requested By: medical team Reason for Consult: managment of uncontrolled DM type 2 Source of Information: patient, old records Exam Limitations: no limitations History of Present Illness: Mr. Finley is a 52 year old gentleman with a past medical history of uncontrolled diabetes type 2 with recent HbA1c of above 14%, hyperlipidemia, sleep apnea, restless leg syndrome, anxiety, bipolar disease, and Seizure disorder, presented with chest pain. As outpatient, he was on VGO-30 with 12 units of insulin before meals. Trulicity was recommended. But he hasn't started taking it due to insurance coverage. In hospital, he was put on Levemir 12 units twice a day, Novolog coverage before meals and Novolog coverage at bedtime. His FSGs were 225 and 157. Allergies/Medications Allergies: Coded Allergies: diphtheria,pertussis (acellular),te (From ADACEL(TDAP ADOLESN/ADULT)(PF)) (PER MED LIST 02/05/17) aspirin (HISTORY OF BLEEDING ULCERS 01/08/18) Home Med List: Atorvastatin Calcium 40 MG TABLET 2 TAB PO 1700 for cholesterol Gabapentin 300 MG CAPSULE 1 CAP PO TID RLS (Reported) Lamotrigine (Lamictal) 100 MG TABLET 200 MG PO BID seizures/moods Lisinopril 5 MG TABLET 1 TAB PO DAILY HTN (Reported) Melatonin 3 MG TABLET 3 MG PO AT BEDTIME for sleep Metformin HCl 1,000 MG TABLET 1 TAB PO BID DIABETES (Reported) Trazodone HCl 100 MG TABLET 100 MG PO AT BEDTIME insomnia Past History Travel History Traveled to [place] past 21 day No Medical History Neurological: seizure, RESTLESS LEG SYNDROME PERIPHERAL NEUROPATHY EENT: cataracts Cardiovascular: hypertension, hyperlipidemia Respiratory: SLEEP APNEA CPAP Gastrointestinal: peptic ulcer disease Hepatic: NONE Renal: NONE Musculoskeletal: ARTHRITIS LEFT SHOULDER (DENIES CURRENT PROBLEM) Psychiatric: bipolar disease, depression, insomnia, Suicide attempts "3-4" TIMES BY HANGING PER PT Endocrine: DM Blood Disorders: NONE Cancer(s): NONE 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 Patient staying with sister temporarily. Services at Home: None Primary Language: Hebrew Smoking Status: Never Smoked ETOH Use: denies use Illicit Drug Use: denies illicit drug use Functional Ability ADLs Independent: dressing, eating, toileting, bathing. Ambulation: independent IADLs Independent: shopping, housework, finances, food prep, telephone, transportation , medication admin. Exam & Diagnostic Data Last 24 Hrs of Vital Signs/I&O Vital Signs Date Time Temp Pulse Resp B/P B/P Pulse O2 O2 Flow FiO2 Mean Ox Delivery Rate 01/09 1404 98.9 79 18 112/74 94 01/09 1114 Room Air Room Air 01/09 0659 98.1 72 18 130/80 97 Room Air 01/09 0021 98.5 77 18 120/78 95 Room Air 01/08 2333 98.5 79 18 125/74 96 Room Air Room Air 01/08 2131 97.4 77 18 104/74 95 01/08 1854 97.5 74 18 118/70 96 01/08 1703 96.5 82 18 155/95 96 Room Air Intake & Output 01/09 1600 01/09 0800 01/09 0000 Intake Total 600 110 Output Total Balance 600 110 Intake, Oral 600 100 Intake, Other 10 Patient 211 lb 211 lb Weight Physical Exam General Appearance: well developed/nourished Neck: normal inspection Respiratory: normal breath sounds, lungs clear Cardiovascular: regular rate/rhythm Extremities: no edema Labs/Obie Results: Laboratory Tests 01/09 01/09 01/08 0450 0450 2121 Chemistry Sodium (137 - 145 mmol/L) 141 Potassium (3.5 - 5.1 mmol/L) 4.3 Chloride (98 - 107 mmol/L) 102 Carbon Dioxide (22 - 30 mmol/L) 26 Anion Gap (5 - 16) 13 BUN (9 - 20 mg/dL) 19 Creatinine (0.7 - 1.2 mg/dL) 0.8 Estimated GFR (>60 ml/min) > 60 BUN/Creatinine Ratio (7 - 25 %) 23.8 Troponin I (<0.11 ng/ml) < 0.01 < 0.01 Hematology CBC w Diff NO MAN DIFF REQ WBC (4.8 - 10.8 /CUMM) 6.9 RBC (4.70 - 6.10 /CUMM) 4.75 Hgb (14.0 - 18.0 G/DL) 14.5 Hct (42 - 52 %) 43.1 MCV (80.0 - 94.0 FL) 90.8 MCH (27.0 - 31.0 PG) 30.5 MCHC (33.0 - 37.0 G/DL) 33.6 RDW (11.5 - 14.5 %) 12.9 Plt Count (130 - 400 /CUMM) 251 MPV (7.4 - 10.4 FL) 7.9 Gran % (42.2 - 75.2 %) 52.8 Lymphocytes % (20.5 - 51.1 %) 36.4 Monocytes % (1.7 - 9.3 %) 7.8 Eosinophils % (0 - 5 %) 2.6 Basophils % (0.0 - 2.0 %) 0.4 Absolute Granulocytes (1.4 - 6.5 /CUMM) 3.6 Absolute Lymphocytes (1.2 - 3.4 /CUMM) 2.5 Absolute Monocytes (0.10 - 0.60 /CUMM) 0.5 Absolute Eosinophils (0.0 - 0.7 /CUMM) 0.2 Absolute Basophils (0.0 - 0.2 /CUMM) 0 01/08 1803 Chemistry Sodium (137 - 145 mmol/L) 135 L Potassium (3.5 - 5.1 mmol/L) 5.4 H Chloride (98 - 107 mmol/L) 98 Carbon Dioxide (22 - 30 mmol/L) 28 Anion Gap (5 - 16) 10 BUN (9 - 20 mg/dL) 20 Creatinine (0.7 - 1.2 mg/dL) 0.7 Estimated GFR (>60 ml/min) > 60 BUN/Creatinine Ratio (7 - 25 %) 28.6 H Glucose (65 - 99 mg/dL) 335 H Hemoglobin A1c (4.2 - 5.8 %) 14.1 H Calcium (8.4 - 10.2 mg/dL) 9.9 Total Bilirubin (0.2 - 1.3 mg/dL) 0.9 AST (17 - 59 U/L) 22 ALT (21 - 72 U/L) 29 Alkaline Phosphatase (< 127 U/L) 66 Troponin I (<0.11 ng/ml) < 0.01 Total Protein (6.3 - 8.2 g/dL) 6.6 Albumin (3.5 - 5.0 g/dL) 3.9 Globulin (1.9 - 4.2 gm/dL) 2.7 Albumin/Globulin Ratio (1.1 - 2.2 %) 1.4 Coagulation PT (9.4 - 12.5 SEC) 10.3 INR (0.90 - 1.17) 0.95 APTT (25 - 37 SEC) 28 D-Dimer High Sensitivty (0 - 243 ng/ml) < 200 Hematology CBC w Diff NO MAN DIFF REQ WBC (4.8 - 10.8 /CUMM) 5.2 RBC (4.70 - 6.10 /CUMM) 5.00 Hgb (14.0 - 18.0 G/DL) 15.2 Hct (42 - 52 %) 45.7 MCV (80.0 - 94.0 FL) 91.3 MCH (27.0 - 31.0 PG) 30.3 MCHC (33.0 - 37.0 G/DL) 33.2 RDW (11.5 - 14.5 %) 12.5 Plt Count (130 - 400 /CUMM) 230 MPV (7.4 - 10.4 FL) 8.4 Gran % (42.2 - 75.2 %) 79.1 H Lymphocytes % (20.5 - 51.1 %) 15.4 L Monocytes % (1.7 - 9.3 %) 4.0 Eosinophils % (0 - 5 %) 1.2 Basophils % (0.0 - 2.0 %) 0.3 Absolute Granulocytes (1.4 - 6.5 /CUMM) 4.1 Absolute Lymphocytes (1.2 - 3.4 /CUMM) 0.8 L Absolute Monocytes (0.10 - 0.60 /CUMM) 0.2 Absolute Eosinophils (0.0 - 0.7 /CUMM) 0.1 Absolute Basophils (0.0 - 0.2 /CUMM) 0 Assessment/Plan Assessment/Plan Mr. Finley is a 52 year old gentleman with a past medical history of uncontrolled diabetes type 2 with recent HbA1c of above 14%, hyperlipidemia, sleep apnea, restless leg syndrome, anxiety, bipolar disease, and Seizure disorder, presented with chest pain. As outpatient, he was on VGO-30 with 12 units of insulin before meals. Trulicity was recommended. But he hasn't started taking it due to insurance coverage. In hospital, he was put on Levemir 12 units twice a day, Novolog coverage before meals and Novolog coverage at bedtime. His FSGs were 225 and 157. Plan: continue the current insulin regimen for now; monitor FSGs. will follow. Consult Acknowledgment - Thank you for your consult request.
--- NOTE | 2018-01-09 17:51 | Cons- Gastroenterology ---
General Information and HPI Consulting Request Date of Consult: 01/09/18 Requested By: Kerri MIRELES PHD,Duncan Guillen Reason for Consult: Hematemesis Source of Information: patient, old records History of Present Illness: For the past year the patient is been having visual "spinning" in bed, accompanied by nausea. This also occurs occasionally during the day, and is positional. On awakening, he has had spitting up of scant red blood on a regular basis. He has no retching, but rather perhaps regurgitation or spitting. He denies heartburn, difficulty or painful swallowing, throat clearing, cough, and has occasional postnasal drip. He has no indigestion, abdominal pain. His bowel movements are somewhat irregular, but not accompanied by bright red blood or black stool. His history of peptic ulcer disease. Most recent EGD (September 2016) demonstrated gastritis, positive for Helicobacter pyloric, which was treated. Allergies/Medications Allergies: Coded Allergies: diphtheria,pertussis (acellular),te (From ADACEL(TDAP ADOLESN/ADULT)(PF)) (PER MED LIST 02/05/17) aspirin (HISTORY OF BLEEDING ULCERS 01/08/18) Home Med List: Atorvastatin Calcium 40 MG TABLET 2 TAB PO 1700 for cholesterol Gabapentin 300 MG CAPSULE 1 CAP PO TID RLS (Reported) Lamotrigine (Lamictal) 100 MG TABLET 200 MG PO BID seizures/moods Lisinopril 5 MG TABLET 1 TAB PO DAILY HTN (Reported) Melatonin 3 MG TABLET 3 MG PO AT BEDTIME for sleep Metformin HCl 1,000 MG TABLET 1 TAB PO BID DIABETES (Reported) Trazodone HCl 100 MG TABLET 100 MG PO AT BEDTIME insomnia Current Medications: Current Medications Sig/Gallo Start time Last Medication Dose Route Stop Time Status Admin Acetaminophen 1,000 MG Q6P PRN 01/09 1515 AC 01/09 N/A 1 UNIT IV 1628 Acetaminophen 650 MG Q8P PRN 01/09 1500 DC PO Acetaminophen 650 MG Q8P PRN 01/09 0100 DC PO Aspirin Buffered 81 MG DAILY 01/09 1000 CAN PO Aspirin Buffered 325 MG ONCE ONE 01/08 1915 DC 01/08 PO 01/08 Atorvastatin Calcium 80 MG 1700 01/09 1700 AC 01/09 PO 1628 Gabapentin 300 MG ONCE ONE 01/09 1200 DC 01/09 PO 01/09 1201 1158 Gabapentin 300 MG TID 01/08 2330 AC 01/09 PO 1628 Heparin Sodium 5,000 UNIT Q8 01/09 0600 DC (Porcine) SC Ibuprofen 600 MG Q6P PRN 01/09 1015 DC 01/09 PO 1010 Insulin Aspart 0 TIDAC/HS 01/08 2345 AC 01/09 SC 1629 Insulin Aspart 12 UNITS ONCE ONE 01/08 2200 DC 01/08 SC 01/08 2201 2217 Insulin Detemir 12 UNITS BID 01/08 2345 AC 01/09 SC 0826 Lamotrigine 200 MG BID 01/08 2330 AC 01/09 PO 0827 Lisinopril 5 MG DAILY 01/09 1000 CAN PO Metformin HCl 1,000 MG ONCE ONE 01/08 2200 DC 01/08 PO 01/08 2201 2217 Morphine Sulfate 2 MG Q6P PRN 01/09 1515 AC IV Pantoprazole Sodium 40 MG DAILY 01/09 1000 AC 01/09 IV 0826 Pantoprazole Sodium 40 MG Q24H 01/09 0515 DC IV Tramadol HCl 50 MG Q8P PRN 01/09 0100 DC PO Trazodone HCl 100 MG AT BEDTIME 01/09 2200 AC PO Past History Travel History Traveled to [place] past 21 day No Medical History Neurological: seizure, RESTLESS LEG SYNDROME PERIPHERAL NEUROPATHY EENT: cataracts Cardiovascular: hypertension, hyperlipidemia Respiratory: SLEEP APNEA CPAP Gastrointestinal: peptic ulcer disease Hepatic: NONE Renal: NONE Musculoskeletal: ARTHRITIS LEFT SHOULDER (DENIES CURRENT PROBLEM) Psychiatric: bipolar disease, depression, insomnia, Suicide attempts "3-4" TIMES BY HANGING PER PT Endocrine: DM Blood Disorders: NONE Cancer(s): NONE BOWL TOPPER/Reproductive: NONE Surgical History Surgical History: ABSCESS REMOVAL tonsillectomy Family History Relations & Conditions If Any: FATHER FH: diabetes mellitus FH: lymphoma FH: seizures MOTHER FH: CAD (coronary artery disease) FH: diabetes mellitus FH: hyperlipidemia Hypertension Psychosocial History Who Do You Live With? Patient staying with sister temporarily. Services at Home: None Primary Language: Thai Smoking Status: Never Smoked ETOH Use: denies use Illicit Drug Use: denies illicit drug use Functional Ability ADLs Independent: dressing, eating, toileting, bathing. Ambulation: independent IADLs Independent: shopping, housework, finances, food prep, telephone, transportation , medication admin. Exam & Diagnostic Data Vital Signs and I&O Vital Signs Date Time Temp Pulse Resp B/P B/P Pulse O2 O2 Flow FiO2 Mean Ox Delivery Rate 01/09 1404 98.9 79 18 112/74 94 01/09 1114 Room Air Room Air 01/09 0659 98.1 72 18 130/80 97 Room Air 01/09 0021 98.5 77 18 120/78 95 Room Air 01/08 2333 98.5 79 18 125/74 96 Room Air Room Air 01/08 2131 97.4 77 18 104/74 95 01/08 1854 97.5 74 18 118/70 96 Intake & Output 01/09 1600 01/09 0400 01/08 1600 01/08 0400 01/07 1600 01/07 0400 Intake Total 710 Output Total Balance 710 Intake, Oral 700 Intake, Other 10 Patient 211 lb Weight Physical Exam: Well-developed, well-nourished, in no apparent distress. Alert and oriented with normal cognition. Skin normal without rash, jaundice, lesion. No adenopathy. Sclera anicteric. No oropharyngeal lesion. Neck supple without thyromegaly, mass, adenopathy. Heart regular rhythm with 1/6 systolic murmur. Lungs clear bilaterally. No gynecomastia. Abdomen soft and nondistended with normal bowel sounds, and no tenderness/mass/organomegaly. Extremities without clubbing, cyanosis or edema. Distal pulses intact. Results Pertinent Lab Results: Laboratory Tests 01/09 01/09 01/08 0450 0450 2121 Chemistry Sodium (137 - 145 mmol/L) 141 Potassium (3.5 - 5.1 mmol/L) 4.3 Chloride (98 - 107 mmol/L) 102 Carbon Dioxide (22 - 30 mmol/L) 26 Anion Gap (5 - 16) 13 BUN (9 - 20 mg/dL) 19 Creatinine (0.7 - 1.2 mg/dL) 0.8 Estimated GFR (>60 ml/min) > 60 BUN/Creatinine Ratio (7 - 25 %) 23.8 Troponin I (<0.11 ng/ml) < 0.01 < 0.01 Hematology CBC w Diff NO MAN DIFF REQ WBC (4.8 - 10.8 /CUMM) 6.9 RBC (4.70 - 6.10 /CUMM) 4.75 Hgb (14.0 - 18.0 G/DL) 14.5 Hct (42 - 52 %) 43.1 MCV (80.0 - 94.0 FL) 90.8 MCH (27.0 - 31.0 PG) 30.5 MCHC (33.0 - 37.0 G/DL) 33.6 RDW (11.5 - 14.5 %) 12.9 Plt Count (130 - 400 /CUMM) 251 MPV (7.4 - 10.4 FL) 7.9 Gran % (42.2 - 75.2 %) 52.8 Lymphocytes % (20.5 - 51.1 %) 36.4 Monocytes % (1.7 - 9.3 %) 7.8 Eosinophils % (0 - 5 %) 2.6 Basophils % (0.0 - 2.0 %) 0.4 Absolute Granulocytes (1.4 - 6.5 /CUMM) 3.6 Absolute Lymphocytes (1.2 - 3.4 /CUMM) 2.5 Absolute Monocytes (0.10 - 0.60 /CUMM) 0.5 Absolute Eosinophils (0.0 - 0.7 /CUMM) 0.2 Absolute Basophils (0.0 - 0.2 /CUMM) 0 01/08 1803 Chemistry Sodium (137 - 145 mmol/L) 135 L Potassium (3.5 - 5.1 mmol/L) 5.4 H Chloride (98 - 107 mmol/L) 98 Carbon Dioxide (22 - 30 mmol/L) 28 Anion Gap (5 - 16) 10 BUN (9 - 20 mg/dL) 20 Creatinine (0.7 - 1.2 mg/dL) 0.7 Estimated GFR (>60 ml/min) > 60 BUN/Creatinine Ratio (7 - 25 %) 28.6 H Glucose (65 - 99 mg/dL) 335 H Hemoglobin A1c (4.2 - 5.8 %) 14.1 H Calcium (8.4 - 10.2 mg/dL) 9.9 Total Bilirubin (0.2 - 1.3 mg/dL) 0.9 AST (17 - 59 U/L) 22 ALT (21 - 72 U/L) 29 Alkaline Phosphatase (< 127 U/L) 66 Troponin I (<0.11 ng/ml) < 0.01 Total Protein (6.3 - 8.2 g/dL) 6.6 Albumin (3.5 - 5.0 g/dL) 3.9 Globulin (1.9 - 4.2 gm/dL) 2.7 Albumin/Globulin Ratio (1.1 - 2.2 %) 1.4 Coagulation PT (9.4 - 12.5 SEC) 10.3 INR (0.90 - 1.17) 0.95 APTT (25 - 37 SEC) 28 D-Dimer High Sensitivty (0 - 243 ng/ml) < 200 Hematology CBC w Diff NO MAN DIFF REQ WBC (4.8 - 10.8 /CUMM) 5.2 RBC (4.70 - 6.10 /CUMM) 5.00 Hgb (14.0 - 18.0 G/DL) 15.2 Hct (42 - 52 %) 45.7 MCV (80.0 - 94.0 FL) 91.3 MCH (27.0 - 31.0 PG) 30.3 MCHC (33.0 - 37.0 G/DL) 33.2 RDW (11.5 - 14.5 %) 12.5 Plt Count (130 - 400 /CUMM) 230 MPV (7.4 - 10.4 FL) 8.4 Gran % (42.2 - 75.2 %) 79.1 H Lymphocytes % (20.5 - 51.1 %) 15.4 L Monocytes % (1.7 - 9.3 %) 4.0 Eosinophils % (0 - 5 %) 1.2 Basophils % (0.0 - 2.0 %) 0.3 Absolute Granulocytes (1.4 - 6.5 /CUMM) 4.1 Absolute Lymphocytes (1.2 - 3.4 /CUMM) 0.8 L Absolute Monocytes (0.10 - 0.60 /CUMM) 0.2 Absolute Eosinophils (0.0 - 0.7 /CUMM) 0.1 Absolute Basophils (0.0 - 0.2 /CUMM) 0 Assessment/Plan Assessment/Recommendations: Hematemesis. This seems to be a minor amount, accompanying with appears to be vertigo, and may even be from oropharynx by his description. There is no accompanying anemia. There are no typical symptoms of GERD. The patient does have a history of peptic ulcer disease, and was treated for Helicobacter pylori. Recommendations * Nothing by mouth after midnight * EGD tomorrow, with repeat gastric biopsies * May need to consider neurology and/or ENT consults after the above Consult Acknowledgment - Thank you for your consult request.
--- NOTE | 2018-01-09 20:28 | Cons- Cardiology ---
General Information and HPI Consulting Request Date of Consult: 01/09/18 Requested By: Kerri MIRELES PHD,Duncan Guillen History of Present Illness: Rigoberto is a 52 year old male with history of hypertension, dyslipidemia, diabetes mellitus and obstructive sleep apnea. He also carries a history of chest pain syndrome and is s/p two cardiac catheterizations with the most recent at [facility] in 2010. This study was reportedly within normal limits. This patient also has a seizure disorder and has had loss of consciousness. It should be recalled that this patient has had bleeding ulcers. This patient has had chest discomfort which radiates toward his left shoulder and occurs both at rest and with exertion that is unchanged. It is associated with shortness of breath. He states that he came to the ER upon his sisters insistance rather than any change in symptomatology. Today, this discomfort was associated with vomiting. The patient is chronically dizzy and he reports regurgitating about a teaspoon of blood. This appears to be a recurrent event. In addition to dizziness, he also feels lightheaded. Cardiac workup has included a stress test showing mild apical ischemia with a normal EF of 55%. His most recent echocardiogram shows a normal EF of 70% with mild LVH and trace TR. Allergies/Medications Allergies: Coded Allergies: diphtheria,pertussis (acellular),te (From ADACEL(TDAP ADOLESN/ADULT)(PF)) (PER MED LIST 02/05/17) aspirin (HISTORY OF BLEEDING ULCERS 01/08/18) Home Med List: Atorvastatin Calcium 40 MG TABLET 2 TAB PO 1700 for cholesterol Gabapentin 300 MG CAPSULE 1 CAP PO TID RLS (Reported) Lamotrigine (Lamictal) 100 MG TABLET 200 MG PO BID seizures/moods Lisinopril 5 MG TABLET 1 TAB PO DAILY HTN (Reported) Melatonin 3 MG TABLET 3 MG PO AT BEDTIME for sleep Metformin HCl 1,000 MG TABLET 1 TAB PO BID DIABETES (Reported) Trazodone HCl 100 MG TABLET 100 MG PO AT BEDTIME insomnia Review of Systems Review of Systems: spitting up blood Past History Travel History Traveled to [place] past 21 day No Medical History Neurological: seizure, RESTLESS LEG SYNDROME PERIPHERAL NEUROPATHY EENT: cataracts Cardiovascular: hypertension, hyperlipidemia Respiratory: SLEEP APNEA CPAP Gastrointestinal: peptic ulcer disease Hepatic: NONE Renal: NONE Musculoskeletal: ARTHRITIS LEFT SHOULDER (DENIES CURRENT PROBLEM) Psychiatric: bipolar disease, depression, insomnia, Suicide attempts "3-4" TIMES BY HANGING PER PT Endocrine: DM Blood Disorders: NONE Cancer(s): NONE REHABILITATION CONSULTANT/Reproductive: NONE Surgical History Surgical History: ABSCESS REMOVAL tonsillectomy Family History Relations & Conditions If Any: FATHER FH: diabetes mellitus FH: lymphoma FH: seizures MOTHER FH: CAD (coronary artery disease) FH: diabetes mellitus FH: hyperlipidemia Hypertension Psychosocial History Who Do You Live With? Patient staying with sister temporarily. Services at Home: None Primary Language: Azeri Smoking Status: Never Smoked ETOH Use: denies use Illicit Drug Use: denies illicit drug use Functional Ability ADLs Independent: dressing, eating, toileting, bathing. Ambulation: independent IADLs Independent: shopping, housework, finances, food prep, telephone, transportation , medication admin. Exam & Diagnostic Data Vital Signs and I&O Vital Signs Date Time Temp Pulse Resp B/P B/P Pulse O2 O2 Flow FiO2 Mean Ox Delivery Rate 01/09 1404 98.9 79 18 112/74 94 01/09 1114 Room Air Room Air 01/09 0659 98.1 72 18 130/80 97 Room Air 01/09 0021 98.5 77 18 120/78 95 Room Air 01/08 2333 98.5 79 18 125/74 96 Room Air Room Air 01/08 2131 97.4 77 18 104/74 95 Intake & Output 01/09 1600 01/09 0800 01/09 0000 01/08 1600 01/08 0800 01/08 0000 Intake Total 600 110 Output Total Balance 600 110 Intake, Oral 600 100 Intake, Other 10 Patient 211 lb 211 lb Weight Physical Exam: General: WD/overweight male in NAD; alert and oriented x 3 HEENT: NC/AT, PERRL, EOMI Neck: no JVD, no carotid bruit Heart: RRR w/o murmur Lungs: clear bilaterally Abdomen: soft, NT, +ve bowel sounds Extremities: no edema Assessment/Plan Assessment/Plan * This patient has chronic chest pain that is very atypical in character for myocardial ischemia. The discomfort has not changed in frequency, intensity or character and multiple cardiac catheterizations and stress tests have been negative for ischemia. Consideration will be given to a GI discomfort since H. Pylori has been an issue in the past. In that regard, an endoscopy is anticipated. We will also consider an ENT consult for the patient's regurgitations of blood which may be coming from the upper airway. He will also be evaluated for a labyrinthitis. This evaluation can be done as an outpatient. * The patient will need to follow up with Dr. Valencia for his diabetes which is under poor control. Medications adjustments were recommended which the patient has not followed as of this point in time. Follow Dr. Ortiz recommendations. * Gabapentin can cause lightheadedness. We will wean this off. Decrease to 100mg TID. Consult Acknowledgment - Thank you for your consult request.
[2018-01-09 22:39] VITALS: BP 114/80
[2018-01-10 06:36] VITALS: BP 148/88
--- NOTE | 2018-01-10 07:20 | PN- Housestaff ---
See Addendum Subjective Follow-up For: Unstable angina GI bleed Diabetes Subjective: During EGD there were concerns for 2nd degree heart block. Dr. Manning looked at the ekg and did not blieve it was real 2nd degree block. Patient does not have any n/v but dee has vertigo. Continues to have intermittent sharp L chest pain. Still continues to spit up blood in the AM which is chronic for almost a year. Review of Systems Constitutional: Reports: see HPI. EENTM: Reports: see HPI (spitting blood). Cardiovascular: Reports: chest pain. Neurological/Psychological: Reports: see HPI (vertigo). Objective Last 24 Hrs of Vital Signs/I&O Vital Signs Date Time Temp Pulse Resp B/P B/P Pulse O2 O2 Flow FiO2 Mean Ox Delivery Rate 01/10 1354 98.1 67 18 110/70 97 01/10 0636 97.5 68 18 148/88 95 Room Air 01/09 2239 97.8 68 18 114/80 96 Intake & Output 01/10 1600 01/10 0800 01/10 0000 Intake Total 600 700 Output Total Balance 600 700 Intake, IV 600 Intake, Oral 600 100 Patient 216 lb Weight Weight Bed scale Measurement Method Physical Exam General Appearance: Alert, Oriented X3, Cooperative Cardiovascular: Regular Rate, Normal S1, Normal S2 Lungs: Clear to Auscultation, Normal Air Movement Abdomen: Normal Bowel Sounds, Soft, No Tenderness Extremities: no LE edema Vascular: 2+ radial pulses Current Medications: Current Medications Sig/Gallo Start time Last Medication Dose Route Stop Time Status Admin Acetaminophen 1,000 MG Q6P PRN 01/09 1515 AC 01/10 N/A 1 UNIT IV 1329 Atorvastatin Calcium 80 MG 1700 01/09 1700 AC 01/10 PO 1632 Dextrose/Water 1,000 ML Q13H 01/09 2345 DC 01/10 IV 0013 Gabapentin 100 MG TID 01/10 1000 AC 01/10 PO 1632 Gabapentin 300 MG TID 01/08 2330 DC 01/09 PO 2243 Insulin Aspart 0 TIDAC/HS 01/10 1200 AC 01/10 SC 1632 Insulin Aspart 0 TIDAC/HS 01/08 2345 DC 01/09 SC 1629 Insulin Detemir 12 UNITS BID 01/08 2345 AC 01/10 SC 0936 Insulin Human Regular 4 UNITS .STK-MED ONE 01/10 0004 DC IV 01/10 0005 Insulin Human Regular 0 Q6 01/09 2359 WV 01/10 SC 0630 Lamotrigine 200 MG BID 01/08 2330 01/10 PO 0936 Lidocaine 1 ANIRUDH .STK-MED ONE 01/10 09 DC TOP 01/10 09 Lidocaine 50 ML .STK-MED ONE 01/10 09 WV TOP 01/10 09 Morphine Sulfate 2 MG Q6P PRN 01/09 1515 AC IV Pantoprazole Sodium 40 MG DAILY 01/09 1000 AC 01/10 IV 0935 Trazodone HCl 100 MG AT BEDTIME 01/09 2200 AC 01/09 PO 2243 Last 24 Hrs of Lab/Obie Results Last 24 Hrs of Labs/Mics: Laboratory Tests 01/10/18 0655: Anion Gap 8, Estimated GFR > 60, BUN/Creatinine Ratio 20.0, Triglycerides 150, Cholesterol 198, LDL Cholesterol, Calc 129, HDL Cholesterol 39 L, Cholesterol/ HDL Ratio 5 H, CBC w Diff NO MAN DIFF REQ, RBC 4.45 L, MCV 91.7, MCH 30.8, MCHC 33.5, RDW 12.7, MPV 8.4, Gran % 46.5, Lymphocytes % 43.5, Monocytes % 6.5, Eosinophils % 3.2, Basophils % 0.3, Absolute Granulocytes 2.3, Absolute Lymphocytes 2.2, Absolute Monocytes 0.3, Absolute Eosinophils 0.2, Absolute Basophils 0 Assessment/Plan Assessment: A: 52 year old gentleman with a past medical history of uncontrolled diabetes, hyperlipidemia, sleep apnea (currently not using CPAP), restless leg syndrome, cataracts, history of bleeding ulcers, left shoulder arthritis, anxiety, bipolar disease, suicidal tendencies in the past and seizure disorder who came to the ED with complaints of chest pain found to be unstable angina and an episode of bloody emesis P: #unstable angina r/o acs trop <.01 x3 d-dimer <200 cxr negative -follow cardiology recommendations #bloody emesis s/p egd with no bleeding sites found h/h 15.2/45.7 -> 13.7/40.8 (01/10) -cont pantoprazole -avoid nsaids -f/u GI recs -monitor h/h, type and cross -f/u GI egd biopsy results. #vertigo Chronic issue -consult ENT and neuro inpatient vs outpatient per attending #diabetes hgb a1c 14.1 -cont levemir, novolog sliding scale -follow endocinology recommendations -gabapentin decreased as it can cause n/v #seizure hx -cont lamotrigene #chronic medical conditions -cont trazodone, atorvastatin #FULL CODE #DVT prophylaxis Problem List: 1. GI bleed 2. Hematemesis Pain Ratin Pain Location: none Pain Goal: Pain 4 or less Pain Plan: pain pathway Tomorrow's Labs & Rationales: cbc bep
[2018-01-10 08:23] LABS: ABSOLUTE BASOPHIL COUNT 0 /CUMM (0.0-0.2); ABSOLUTE EOSINOPHIL COUNT 0.2 /CUMM (0.0-0.7); ABSOLUTE GRANULOCYTE CT 2.3 /CUMM (1.4-6.5); ABSOLUTE LYMPH COUNT 2.2 /CUMM (1.2-3.4); ABSOLUTE MONOCYTE COUNT 0.3 /CUMM (0.10-0.60); BASOPHIL % 0.3 % (0.0-2.0); EOSINOPHIL % 3.2 % (0-5); GRANULOCYTE % 46.5 % (42.2-75.2); HEMATOCRIT 40.8 % (42-52); MEAN CORPUSCULAR HGB 30.8 PG (27.0-31.0); MEAN CORPUSCULAR HGB CONC 33.5 G/DL (33.0-37.0); MEAN CORPUSCULAR VOLUME 91.7 FL (80.0-94.0); MEAN PLATELET VOLUME 8.4 FL (7.4-10.4); PLATELET COUNT 187 /CUMM (130-400); RBC DISTRIBUTION WIDTH 12.7 % (11.5-14.5); RED BLOOD CELL CT 4.45 /CUMM (4.70-6.10)
--- NOTE | 2018-01-10 08:25 | PN- Diabetes ---
Assessment/Plan Diabetes Assessment: Mr. Finley is a 52 year old gentleman with a past medical history of uncontrolled diabetes type 2 with recent HbA1c of above 14%, hyperlipidemia, sleep apnea, restless leg syndrome, anxiety, bipolar disease, and Seizure disorder, presented with chest pain. As outpatient, he was on VGO-30 with 12 units of insulin before meals. Trulicity was recommended. But he hasn't started taking it due to insurance coverage. In hospital, he was put on Levemir 12 units twice a day, Novolog coverage before meals and Novolog coverage at bedtime. Patient went to for EGD. Overnight, he was kept NPO. His FSGs were 261, 190, 199, 168 and 110. Plan: after he is back from procedure and ready to eat, he will be on previous insulin regimen--- Levemir 12 units twice a deay, Novolog coverage before meals and Novolog coverage at bedtime. monitor FSGs. will follow. Subjective Subjective: Patient went to for EGD. Objective Last 24 Hrs of Vital Signs/I&O Vital Signs Date Time Temp Pulse Resp B/P B/P Pulse O2 O2 Flow FiO2 Mean Ox Delivery Rate 01/10 0636 97.5 68 18 148/88 95 Room Air 01/09 2239 97.8 68 18 114/80 96 01/09 1404 98.9 79 18 112/74 94 01/09 1114 Room Air Room Air Intake & Output 01/10 1600 01/10 0800 01/10 0000 Intake Total 700 Output Total Balance 700 Intake, IV 600 Intake, Oral 100 Patient 216 lb Weight Weight Bed scale Measurement Method Findings Pertinent Lab/Obie Results: Laboratory Tests 01/10 0655 Chemistry Sodium (137 - 145 mmol/L) 138 Potassium (3.5 - 5.1 mmol/L) 3.6 Chloride (98 - 107 mmol/L) 103 Carbon Dioxide (22 - 30 mmol/L) 27 Anion Gap (5 - 16) 8 BUN (9 - 20 mg/dL) 18 Creatinine (0.7 - 1.2 mg/dL) 0.9 Estimated GFR (>60 ml/min) > 60 BUN/Creatinine Ratio (7 - 25 %) 20.0 Triglycerides (<150 mg/dL) 150 Cholesterol (< 200 MG/DL) 198 LDL Cholesterol, Calc (65 - 129 mg/dL) 129 HDL Cholesterol (40 - 60 mg/dL) 39 L Cholesterol/HDL Ratio (0.00 - 4.88 %) 5 H Hematology CBC w Diff Pending WBC Pending RBC Pending Hgb Pending Hct Pending MCV Pending MCH Pending MCHC Pending RDW Pending Plt Count Pending MPV Pending
--- NOTE | 2018-01-10 08:42 | Proc Note Endoscopy ---
See Addendum Endoscopy Procedure Procedure Date: 01/10/18 Procedure Type: EGD w/biopsy Lime Puller: Zach Blanco M.D. ASA Classification: III Indications: Question of hematemesis History of Helicobacter pylori gastritis Instrument: diagnostic gastroscope Meds Received: MAC (O2 via mask) Patient's Tolerance: good Complications: none Extent Reached: second part of duodenum Procedure: The patient signed informed consent, and was medicated. Lidocaine pharyngeal spray was administered. Pulse oximetry, blood pressure and cardiac monitoring were performed continuously throughout the procedure. The Olympus high- definition gastroscope was inserted into the mouth and advanced to the duodenum. Retroflexion was performed within the stomach to examine the cardia. Careful examination was performed. Findings: The pharynx appeared normal. There was thickening of the arytenoids. The esophageal inlet was normal. There was no blood in the oropharynx. The esophagus had normal caliber, and contour. The mucosa was intact throughout there were no varices. The GE junction at 41 cm was normal. There was no hiatal hernia. The stomach had normal distention, and active peristalsis. There was no old or fresh blood within the gastric cavity. The cardia was normal. Mucosa and folds of the fundus and body were normal, and 2 biopsies were obtained. There was very mild patchy antral erythema. 2 antral biopsies were obtained. The pyloric channel was normal. In the duodenal bulb there were foci of mild erythema. There were no erosions or ulcers. The mucosa and folds of the duodenal sweep were normal. Impression: * No bleeding site identified * Minimal gastropathy; biopsies obtained Recommendations: * Await pathology * Given patient's positional dizziness/vertigo, wouldn't pursue ENT and perhaps neurology evaluation. Thank you very much for allowing gastroenterology participation in this case. We will not see this patient in inpatient follow-up, but please call or reconsult as needed. He may follow up in our office after discharge. CC: Missy MIRELES,Paramjit Manning MD PHD,Duncan Guillen
--- NOTE | 2018-01-10 11:02 | Patient Discharge Instructions ---
Discharge Instructions General Discharge Information Special Instructions: Please follow up with your at risk paraprofessional in 1 week (Dr. Manning). Please follow up with Dr. Zach Blanco (GI) in 1 week. Please contact your PCP/at risk paraprofessional for a refferral to ENT and neurology regarding your vertigo. Please also discuss with ENT about possible bleeding in the upper airway. Please follow up with Dr. Valencia for diabetic management. Please continue your medications as perscribed. Acute Coronary Syndrome Inclusion Criteria At DC or during hospital stay patient has or had the following: ACS DIAGNOSIS No Discharge Core Measures Meds if any: Prescribed or Continued at Discharge Meds if any: NOT Prescribed or Continued at Discharge Congestive Heart Failure Inclusion Criteria At DC or during hospital stay patient has or had the following: CHF DIAGNOSIS No Discharge Core Measures Meds if any: Prescribed or Continued at Discharge Meds if any: NOT Prescribed or Continued at Discharge Cerebrovascular accident Inclusion Criteria At DC or during hospital stay patient has or had the following: CVA/TIA Diagnosis No Discharge Core Measures Meds if any: Prescribed or Continued at Discharge Meds if any: NOT Prescribed or Continued at Discharge Venous thromboembolism Inclusion Criteria VTE Diagnosis No VTE Type NONE VTE Confirmed by (Test) NONE Discharge Core Measures - Per Current guidelines, there needs to be overlap - treatment for the first 5 days of Warfarin therapy. - If discharged on Warfarin prior to 5 days of - overlap therapy, the patient will need to be - assessed for post discharge needs including - *Post discharge parental anticoagulation - *Warfarin and/or parental anticoagulation education - *Follow up date to check INR post discharge At least 5 days overlap therapy as Inpatient No Meds if any: Prescribed or Continued at Discharge Note: Overlap Therapy is Warfarin and Anticoagulant Meds if any: NOT Prescribed or Continued at Discharge
[2018-01-10 13:54] VITALS: BP 110/70
[2018-01-10 21:36] VITALS: BP 138/80
--- NOTE | 2018-01-10 22:58 | PN- Cardiology ---
Subjective Subjective: * Patient continues to report dizziness and left chest discomfort. * Sinus arrhythmia noted during his endoscopy. * No bleeding found on endoscopy Objective Vital Signs and I&Os Vital Signs Date Time Temp Pulse Resp B/P B/P Pulse O2 O2 Flow FiO2 Mean Ox Delivery Rate 01/11 2136 99.0 78 20 138/80 95 01/10 1354 98.1 67 18 110/70 97 01/10 0636 97.5 68 18 148/88 95 Room Air Intake & Output 01/10 1600 01/10 0800 01/10 0000 01/09 1600 01/09 0800 01/09 0000 Intake Total 600 700 600 110 Output Total Balance 600 700 600 110 Intake, IV 600 Intake, Oral 600 100 600 100 Intake, Other 10 Patient 216 lb 211 lb 211 lb Weight Weight Bed scale Measurement Method Physical Exam: General: WD/overweight male in NAD; alert and oriented x 3 HEENT: NC/AT, PERRL, EOMI Neck: no JVD, no carotid bruit Heart: RRR w/o murmur Lungs: clear bilaterally Abdomen: soft, NT, +ve bowel sounds Extremities: no edema Assessment/Plan Assessment/Plan * No evidence of ischemia. No findings of heart block. We will have patient evaluated by neurology for his dizziness and by ENT for possible bloody nasal/ sinus or upper airway drainage. These evaluations may be done as an outpatient. * Follow endocrine consult recommendations. Continue telemetry? No
[2018-01-11 06:52] VITALS: BP 140/90
[2018-01-11 08:40] LABS: ABSOLUTE BASOPHIL COUNT 0 /CUMM (0.0-0.2); ABSOLUTE EOSINOPHIL COUNT 0.2 /CUMM (0.0-0.7); ABSOLUTE LYMPH COUNT 2.4 /CUMM (1.2-3.4); ABSOLUTE MONOCYTE COUNT 0.4 /CUMM (0.10-0.60); BASOPHIL % 0.3 % (0.0-2.0); EOSINOPHIL % 2.9 % (0-5); GRANULOCYTE % 50.3 % (42.2-75.2); HEMATOCRIT 39.1 % (42-52); MEAN CORPUSCULAR HGB 30.8 PG (27.0-31.0); MEAN CORPUSCULAR HGB CONC 33.9 G/DL (33.0-37.0); MEAN CORPUSCULAR VOLUME 90.8 FL (80.0-94.0); MEAN PLATELET VOLUME 8.4 FL (7.4-10.4); PLATELET COUNT 209 /CUMM (130-400); RBC DISTRIBUTION WIDTH 12.9 % (11.5-14.5); WHITE BLOOD CELL COUNT 6.1 /CUMM (4.8-10.8)
--- NOTE | 2018-01-11 08:47 | PN- Housestaff ---
Subjective Follow-up For: Unstable angina GI bleed Diabetes Subjective: No acute events last night. Still having chest pain and vertigo and headache. States leg numbness after decreasing gabapentin. Review of Systems Constitutional: Reports: see HPI. Cardiovascular: Reports: chest pain. Neurological/Psychological: Reports: see HPI (dizzyness), headache, numbness. Objective Last 24 Hrs of Vital Signs/I&O Vital Signs Date Time Temp Pulse Resp B/P B/P Pulse O2 O2 Flow FiO2 Mean Ox Delivery Rate 01/11 0652 98.0 78 20 140/90 97 Room Air 01/10 2136 99.0 78 20 138/80 95 Intake & Output 01/11 1600 01/11 0800 01/11 0000 Intake Total 200 350 Output Total Balance 200 350 Intake, IV 100 Intake, Oral 100 350 Number 0 Bowel Movements Patient 224 lb Weight Physical Exam General Appearance: Alert, Oriented X3, Cooperative Cardiovascular: Regular Rate, Normal S1, Normal S2, no tenderness of chest to palpation Lungs: Clear to Auscultation, Normal Air Movement Abdomen: Normal Bowel Sounds, Soft, No Tenderness Extremities: 2+ radial pulses Current Medications: Current Medications Sig/Galol Start time Last Medication Dose Route Stop Time Status Admin Acetaminophen 1,000 MG .STK-MED ONE 01/11 0548 DC IV 01/11 0549 Acetaminophen 1,000 MG .STK-MED ONE 01/10 2158 DC IV 01/10 2159 Acetaminophen 1,000 MG Q6P PRN 01/09 1515 DCD 01/11 N/A 1 UNIT IV 0554 Atorvastatin Calcium 80 MG 1700 01/09 1700 DCD 01/10 PO 1632 Gabapentin 100 MG TID 01/10 1000 DCD 01/11 PO 0907 Insulin Aspart 0 TIDAC/HS 01/10 1200 DCD 01/11 SC 1240 Insulin Detemir 15 UNITS BID 01/11 1000 DCD 01/11 SC 0906 Insulin Detemir 12 UNITS BID 01/08 2345 DC 01/10 SC 2201 Lamotrigine 200 MG BID 01/08 2330 DCD 01/11 PO 0906 Magnesium Citrate 300 ML ONE ONE 01/11 1030 DC 01/11 PO 01/11 1031 1128 Morphine Sulfate 2 MG Q6P PRN 01/09 1515 DCD IV Pantoprazole Sodium 40 MG DAILY 01/09 1000 DCD 01/11 IV 0907 Polyethylene Glycol 17 GM DAILY 01/11 1000 DCD 01/11 PO 09 Senna 187 MG AT BEDTIME 01/11 0630 DCD 01/11 PO 09 Trazodone HCl 100 MG AT BEDTIME 01/09 2200 DCD 01/10 PO 2200 Last 24 Hrs of Lab/Obie Results Last 24 Hrs of Labs/Mics: Laboratory Tests 01/11/18 0615: Anion Gap 10, Estimated GFR > 60, BUN/Creatinine Ratio 17.5, CBC w Diff NO MAN DIFF REQ, RBC 4.30 L, MCV 90.8, MCH 30.8, MCHC 33.9, RDW 12.9, MPV 8.4, Gran % 50.3, Lymphocytes % 40.2, Monocytes % 6.3, Eosinophils % 2.9, Basophils % 0.3, Absolute Granulocytes 3.0, Absolute Lymphocytes 2.4, Absolute Monocytes 0.4, Absolute Eosinophils 0.2, Absolute Basophils 0 Assessment/Plan Assessment: A: 52 year old gentleman with a past medical history of uncontrolled diabetes, hyperlipidemia, sleep apnea (currently not using CPAP), restless leg syndrome, cataracts, history of bleeding ulcers, left shoulder arthritis, anxiety, bipolar disease, suicidal tendencies in the past and seizure disorder who came to the ED with complaints of chest pain found to be unstable angina and an episode of bloody emesis P: #unstable angina r/o acs trop <.01 x3 d-dimer <200 cxr negative -Patient cleared by cardiology for discharge with follow up #bloody emesis s/p egd with no bleeding sites found h/h 15.2/45.7 -> 13.7/40.8 (01/10) -cont pantoprazole -avoid nsaids -f/u GI recs -monitor h/h, type and cross -f/u GI egd biopsy results. -patient did not want PPI script for discharge #vertigo Chronic issue -advised to follow up with pcp for ENT and neurology referral. patient states he has seen [facility] in the past with poor results. #diabetes hgb a1c 14.1 -cont levemir, novolog sliding scale -follow endocinology recommendations -f/u outpatient endo -gabapentin decreased per cards but patient states he will not follow recommendations. he will continue his old home dose due to the pain/neuropathy #seizure hx -cont lamotrigene #chronic medical conditions -cont trazodone, atorvastatin #FULL CODE #DVT prophylaxixs ALPS Problem List: 1. GI bleed 2. Hematemesis 3. Unstable angina Pain Ratin Pain Location: chest Pain Goal: Pain 4 or less Pain Plan: pain pathway Tomorrow's Labs & Rationales: none
[2018-01-11] MEDS ORDERED: GABAPENTIN100 M2 PO (09:20)
[2018-01-11] MEDS ORDERED: PROTONIX40 M3 PO (09:20)
[2018-01-11] MEDS ORDERED: VGO 301 EACH OTHER (09:24)
--- NOTE | 2018-01-11 12:19 | PN- Diabetes ---
Assessment/Plan Diabetes Assessment: Mr. Finley is a 52 year old gentleman with a past medical history of uncontrolled diabetes type 2 with recent HbA1c of above 14%, hyperlipidemia, sleep apnea, restless leg syndrome, anxiety, bipolar disease, and Seizure disorder, presented with chest pain. As outpatient, he was on VGO-30 with 12 units of insulin before meals. Trulicity was recommended. But he hasn't started taking it due to insurance coverage. In hospital, he was put on Levemir 12 units twice a day, Novolog coverage before meals and Novolog coverage at bedtime. His FSGs were 110, 212, 251, 273 and 227. Plan: increase Levemir to 15 units twice a day; continue the current Novolog coverage before meals and Novolog coverage at bedtime; monitor FSGs. will follow. Subjective Subjective: He still has chest disconfort and dizziness. Objective Last 24 Hrs of Vital Signs/I&O Vital Signs Date Time Temp Pulse Resp B/P B/P Pulse O2 O2 Flow FiO2 Mean Ox Delivery Rate 01/11 0652 98.0 78 20 140/90 97 Room Air 01/10 2136 99.0 78 20 138/80 95 01/10 1354 98.1 67 18 110/70 97 Intake & Output 01/11 1600 01/11 0800 01/11 0000 Intake Total 200 350 Output Total Balance 200 350 Intake, IV 100 Intake, Oral 100 350 Number 0 Bowel Movements Patient 224 lb Weight Findings Pertinent Lab/Obie Results: Laboratory Tests 01/11 0615 Chemistry Sodium (137 - 145 mmol/L) 138 Potassium (3.5 - 5.1 mmol/L) 4.1 Chloride (98 - 107 mmol/L) 103 Carbon Dioxide (22 - 30 mmol/L) 24 Anion Gap (5 - 16) 10 BUN (9 - 20 mg/dL) 14 Creatinine (0.7 - 1.2 mg/dL) 0.8 Estimated GFR (>60 ml/min) > 60 BUN/Creatinine Ratio (7 - 25 %) 17.5 Hematology CBC w Diff NO MAN DIFF REQ WBC (4.8 - 10.8 /CUMM) 6.1 RBC (4.70 - 6.10 /CUMM) 4.30 L Hgb (14.0 - 18.0 G/DL) 13.3 L Hct (42 - 52 %) 39.1 L MCV (80.0 - 94.0 FL) 90.8 MCH (27.0 - 31.0 PG) 30.8 MCHC (33.0 - 37.0 G/DL) 33.9 RDW (11.5 - 14.5 %) 12.9 Plt Count (130 - 400 /CUMM) 209 MPV (7.4 - 10.4 FL) 8.4 Gran % (42.2 - 75.2 %) 50.3 Lymphocytes % (20.5 - 51.1 %) 40.2 Monocytes % (1.7 - 9.3 %) 6.3 Eosinophils % (0 - 5 %) 2.9 Basophils % (0.0 - 2.0 %) 0.3 Absolute Granulocytes (1.4 - 6.5 /CUMM) 3.0 Absolute Lymphocytes (1.2 - 3.4 /CUMM) 2.4 Absolute Monocytes (0.10 - 0.60 /CUMM) 0.4 Absolute Eosinophils (0.0 - 0.7 /CUMM) 0.2 Absolute Basophils (0.0 - 0.2 /CUMM) 0
== END 2018-01-11 13:30 ==
LOC: ERH 16:51 → 1NO 22:06 → ERHI 22:06 → ENRESERV 22:57 → 1NO 01-09 00:27 → ENPENDDIS 01-11 12:59 → ENTRNSPT 01-11 13:24 → EDTRNSPTSTS 01-11 13:29 → 1NO 01-11 13:30 → CMPTRNSPT 01-11 13:41
PROVIDERS: Internal Medicine Endocrinology, Diabetes & Metabolism; Physician Assistant
DX: I20.0 Unstable angina (principal); I10 Essential (primary) hypertension; F32.9 Major depressive disorder, single episode, unspecified; R42 Dizziness and giddiness; E11.42 Type 2 diabetes mellitus with diabetic polyneuropathy; Z79.4 Long term (current) use of insulin; Z79.84 Long term (current) use of oral hypoglycemic drugs; Z79.82 Long term (current) use of aspirin; G47.30 Sleep apnea, unspecified; E78.5 Hyperlipidemia, unspecified; G25.81 Restless legs syndrome; G40.909 Epilepsy, unspecified, not intractable, without status epilepticus; K27.9 Peptic ulcer, site unspecified, unspecified as acute or chronic, without hemorrhage or perforation; K92.0 Hematemesis; M13.812 Other specified arthritis, left shoulder
CPT/HCPCS: 36592; 71046; 82436; 88305; 88312; 93005; 93010; 96374; 96375; 96376; G0378; J0131; J1644; J1815

== ENCOUNTER → 2018-07-16 | Day surgery (SDC) | payer OTHER ==
[~2018-07-16] VITALS: Ht 162.6 cm; Wt 89.8 kg
[~2018-07-16] MED LIST changes: +GABAPENTIN100 M2 PO; +LISINOPRIL5 M1 PO; +METFORMIN HCL1000 M1 PO; +PROTONIX40 M3 PO; +VGO 301 EACH OTHER
--- NOTE | 2018-07-16 18:24 | Operative Report ---
Operative/Inv Procedure Report Surgery Date: 07/16/18 Name of Procedure: Robotic laparoscopic mesh repair of bilateral inguinal hernias Pre-Operative Diagnosis: Bilateral inguinal hernias Post-Operative Diagnosis: Same, left indirect right direct Estimated Blood Loss: scant Surgeon/Zookeeper: Richard MIRELES,RACHAEL Loco Anesthesia: general endotracheal tube Operative/Procedure Note Note: Patient was positioned supine. After successful induction of general anesthesia , the abdomen was prepped and draped in usual sterile fashion, based on body habitus we aimed our 3 trocar sites to be in the mid-epigastrium: the middle and 2 bilateral, centered slightly off the midline aiming towards the groin, local anesthetic was injected in a spot left lateral subcostal, a 1 cm incision was made with a 15 blade and then using a 5 mm optical trocar inserted into the 8 mm robotic trocar, attached to a 5 mm camera and the trocar was advanced through the abdominal wall watching on the screen, as the trocar passes through the layers, alternating colors, yellow fat white fascia red muscle, until the tip just seems to savage the inner thin peritoneal layer. At that point, I stop pushing and check if it's open by turning on the gas. If the belly insufflates then you know you can advance the trocar into an empty space more directly without injuring the viscera into the peritoneum and then the gas was turned on to 15 mm. We placed the other two 8 mm robotic trochars while watching with the camera bilaterally roughly in the same line, symmetrically.Then the Robot was moved to the patient, then docked and targeted. At this point you could see the bilateral indirect hernias we approached the left one first, note that the dissection was done the same way on both sides. We then developed / started the peritoneal flap horizontally at the level of the iliac crest starting laterally to medial to umbilical ligament with cautery and then dissected within the flap the inguinal anatomy. Using mostly blunt dissection with a bipolar fenestrated grasper and a scissors, first Bradley's ligament is swept off medially, checking the medial spaces, direct and femoral, while particularly mindful of the proximity of the iliac vein, but also dissecting beneath it enough to make room for the mesh, there were no hernias there, . Then briefly skipping over the area of the iliac fat pad, we developed the iliopubic tract out laterally to the iliac crest. Then we returned to the area of the fat pad, laterally where the hernia sac and splayed out spermatic cord were adherent, coursing up into an attenuated deep ring. There was some preperitoneal fat up inside in front that was dragged down and out, along with the lip of the peritoneal sac down off the cord which form a triangle, blood vessels approaching laterally the vas medially with the apex at the deep ring, it was an attenuated sac but we did not put a hole in it. Once the hernia sac is from the vas down to the below Bradley's medially at the bladder, and laterally the iliopubic tract below this, a laparoscopic progrip Parietex sided mesh without the keyhole or the suture, is marked and stuffed down the camera trocar, then unfurled in a systematic fashion, to cover both the hernia and the direct spaces and to make sure its tucked below Bradley's ligament and in that crevice Retzius space by the bladder and laterally beneath the iliopubic tract without curling and superiorly towards the camera. The mesh was adjusted back and forth so the edges are not curling. There was some preperitoneal fat that we had brought down that helped hold the mesh down inferiorly. Then we created a flap on the right side and dissected out the right inguinal anatomy and the same fashion. After both meshes were inserted and laid flat to our satisfaction covering all the potential defects centered on the main one, and a toribio crossed in the middle, we then sequentially brought up the peritoneal flap and sewed it shut across with a 2-0 V lock, first the left than the right. We then checked again for holes, then undocked, let rest of the gas escape, pulling out the instruments and trochars. Then we closed the 3 skin incisions with interrupted 4-0 Monocryl followed by Mastisol, Steri-Strips and Band-Aids. Overall estimated blood loss was minimal, lap and sponge counts were correct, wound expectancy was clean, IV fluids crystalloid, complications none, patient tolerated the procedure well, did not significantly buckner during extubation and was returned to the recovery room in satisfactory condition.
== END ==
LOC: STS 02:47
DX: K40.20 Bilateral inguinal hernia, without obstruction or gangrene, not specified as recurrent (principal); E11.9 Type 2 diabetes mellitus without complications; Z79.4 Long term (current) use of insulin; Z96.41 Presence of insulin pump (external) (internal); G47.33 Obstructive sleep apnea (adult) (pediatric); Z22.322 Carrier or suspected carrier of Methicillin resistant Staphylococcus aureus; R56.9 Unspecified convulsions
CPT/HCPCS: 49650; 64488; S2900; 36415; C1781; J0131; J0690; J2250; J2405; J3490